=== PATIENT | male | born 1945 | race Caucasian/White ===

== ENCOUNTER → 2016-09-05 | Outpatient (CLI) | payer MEDICARE, MEDICAID ==
[~2016-09-05] MED LIST: /ADVA50050; /ADVA50050 INH; /WARF25TA PO; ADV500INH INH; ALBUPOW9 INH; ASPI325T PO; AZIT600T OR; BABY81CH; CHAN1PAK9 PO; CIPR500T3 PO; CLOP75TA2; CLOP75TA2 PO; CRES40TA PO; DARV100T OR; FLOM5CAP PO; GABA300C2 PO; GABA300C3 PO; LEVA500T PO; METO50TA2 PO; METOPROLOL PO; NAPR500T; NAPR500T6 PO; NITR0.4S; NORC5TAB PO; OXYGEN INH; PERCOCET PO; PLAV75TA2; POTA10TAB PO; PRED10TA PO; PRED20TA OR; PROV90AE AD; SERT-141 PO; SOMA350T; SPIR1CAP INH; TOPR50TA; TOPR50TA OR; TOPR50TA PO; TYLENOL PO; ZOCO20TA
[2016-09-05 13:57] LABS: ALBUMIN 3.6 GM/DL (3.2-5.2); ANION GAP 11 MEQ/L (8-16); BLOOD UREA NITROGEN 20 MG/DL (7-18); CALCIUM LEVEL 9.2 MG/DL (8.8-10.2); CARBON DIOXIDE LEVEL 27 MEQ/L (21-32); CHLORIDE LEVEL 105 MEQ/L (98-107); CREATININE FOR GFR 1.13 MG/DL (0.70-1.30); GLOMERULAR FILTRATION RATE > 60.0 (>42); GLUCOSE, FASTING 96 MG/DL (83-110); MAGNESIUM LEVEL 2.2 MG/DL (1.8-2.4); POTASSIUM SERUM 4.2 MEQ/L (3.5-5.1); SODIUM LEVEL 143 MEQ/L (136-145); URIC ACID 5.2 MG/DL (3.5-7.2)
== END ==
LOC: M LAB 12:20
PROVIDERS: ATTEND Internal Medicine Nephrology
DX: N20.0 Calculus of kidney (principal); I10 Essential (primary) hypertension; R82.99 Other abnormal findings in urine

== ENCOUNTER 2016-11-25 09:51 | Emergency (ER) | payer MEDICARE, MEDICAID ==
[~2016-11-25] VITALS: Ht 180.3 cm; Wt 92.6 kg
[~2016-11-25 09:51] MED LIST changes: +GABA-282 PO; -GABA300C3 PO; +NORC1TAB4 PO; -NORC5TAB PO; -SERT-141 PO; +SERT50TA PO
[2016-11-25] MEDS ORDERED: POTA4.25 PO (10:06)
[2016-11-25] MEDS ORDERED: o2 INH (10:06)
[2016-11-25 11:16] LABS: BASO # 0.1 K/mm3 (0.0-0.2); BASO % 0.4 % (0.0-1.0); DIFF SLIDE NUMBER 108; EOS # 0.5 K/mm3 (0.0-0.50); EOS % 3.4 % (0.0-3.0); LARGE UNSTAINED CELL # 0.2 K/mm3 (0.0-0.4); LARGE UNSTAINED CELL % 1.1 % (0.0-4.0); LYMPH # 1.7 K/mm3 (1.5-4.5); LYMPH % 11.4 % (24.0-44.0); MEAN CORPUSCULAR HEMOGLOBIN 32.7 pg (27.0-33.0); MEAN CORPUSCULAR HGB CONC 33.3 g/dl (32.0-36.5); MEAN CORPUSCULAR VOLUME 98.1 fl (80.0-96.0); MONO # 0.8 K/mm3 (0.0-0.8); MONO % 5.5 % (0.0-5.0); NEUTROPHILS # 11.8 K/mm3 (1.8-7.7); NEUTROPHILS % 78.2 % (36.0-66.0); PLATELET COUNT, AUTOMATED 224 k/mm3 (150-450); RED CELL DISTRIBUTION WIDTH 13.3 % (11.5-14.5)
[2016-11-25 11:25] LABS: ALBUMIN 3.1 GM/DL (3.2-5.2); ALBUMIN/GLOBULIN RATIO 0.76 (1.00-1.93); ALKALINE PHOSPHATASE 106 U/L (45-117); ALT/SGPT 15 U/L (12-78); ANION GAP 6 MEQ/L (8-16); AST/SGOT 17 U/L (15-37); BILIRUBIN,DIRECT 0.1 MG/DL (0.0-0.2); BILIRUBIN,TOTAL 0.6 MG/DL (0.2-1.0); BLOOD UREA NITROGEN 10 MG/DL (7-18); CARBON DIOXIDE LEVEL 28 MEQ/L (21-32); CHLORIDE LEVEL 105 MEQ/L (98-107); CREATININE FOR GFR 1.09 MG/DL (0.70-1.30); GLOMERULAR FILTRATION RATE > 60.0 (>42); GLUCOSE, FASTING 97 MG/DL (83-110); POTASSIUM SERUM 4.3 MEQ/L (3.5-5.1); SODIUM LEVEL 139 MEQ/L (136-145); TOTAL PROTEIN 7.2 GM/DL (6.4-8.2)
[2016-11-25] MEDS ORDERED: IPRATROPIUM 0.5MG/ALBUTEROL 2.5MG INH SOL UD 3ML (DUONEB)(J7620) NEB ONE (11:30)
[2016-11-25] MEDS ORDERED: NS 500 ML IV ONE (11:30)
[2016-11-25] MEDS ORDERED: ONDANSETRON 4MG/2ML VIAL (J2405) IV ONE (11:30)
[2016-11-25] MEDS ORDERED: methylPREDNISolone INJ 125 MG/2 ML VIAL (J2930) IV ONE (11:30)
--- NOTE | 2016-11-25 12:02 | REP ---
CHEST, TWO VIEWS: Two views of the chest are performed and compared to prior study of 05/09/2016. Chronic interstitial opacities are seen bilaterally. New nodular density is seen in the right suprahilar region 2.4 cm in diameter. There is mild cardiomegaly. There is calcification and tortuosity of the thoracic aorta. There are degenerative changes of the spine. IMPRESSION: Chronic interstitial densities and mild cardiomegaly. Right suprahilar nodular density 2.4 cm in diameter. This may be evaluated with CT of the chest. Signed by Bonifacio Braswell MD 11/25/2016 07:56 P
[2016-11-25] MEDS ORDERED: ALBUTEROL SULFATE 2.5 MG/0.5 ML INH NEB SOLN NEB ONE (15:00)
[2016-11-25 15:22] VITALS: BP 122/61
[2016-11-25] MEDS ORDERED: ALBU1TAB4 PO (15:42)
[2016-11-25] MEDS ORDERED: PRED20TA PO (15:42)
--- NOTE | 2016-11-26 20:54 | ECGEPIP ---
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
== END 2016-11-25 15:54 | disposition home or self-care (01) ==
LOC: EDBD 09:51 → M ED 10:36
DX: R11.2 Nausea with vomiting, unspecified (principal); R06.02 Shortness of breath; R91.8 Other nonspecific abnormal finding of lung field; J43.9 Emphysema, unspecified; I51.7 Cardiomegaly; Z87.891 Personal history of nicotine dependence
CPT/HCPCS: 71020; 80048; 80076; 81001; 83605; 83690; 85025; 93005; 94640; 96374; 96375; 99284; J2405; J2930

== ENCOUNTER → 2016-12-26 | Outpatient (CLI) | payer MEDICARE, MEDICAID ==
[~2016-12-26] MED LIST changes: +ALBU1TAB4 PO; +POTA4.25 PO; +PRED20TA PO; +o2 INH
--- NOTE | 2016-12-26 11:39 | REP ---
Renal ultrasound: The kidneys are normal size. Right kidney measures 10 .9 x 5.4 5.2 cm. Left kidney measures 12.0 x 5.3 x 5.5 cm. Renal cortical echogenicity is normal bilaterally. There is no hydronephrosis, calculus, or mass on the right on the left except for calcified atheroma in the renal arteries. There is a small 1.2 cm right renal cyst superolaterally. Bladder ultrasound: The bladder is nondistended. The pre void bladder volume is 83 ml. The postvoid bladder volume is 101 ml. With color Doppler assessment there are bilateral ureteral jets into the urinary bladder. Impression: Right renal cyst. No hydronephrosis. There are bilateral ureteral jets into the urinary bladder. Signed by Bonifacio Kramer MD 12/26/2016 11:30 A
== END ==
LOC: M RAD 09:05
PROVIDERS: ATTEND Internal Medicine Nephrology
DX: N18.9 Chronic kidney disease, unspecified (principal); N20.0 Calculus of kidney

== ENCOUNTER → 2017-01-23 | Outpatient (CLI) | payer MEDICARE, MEDICAID ==
[~2017-01-23] MED LIST changes: +ALB2.5NEB INH; +BREO1INH3 INH; +INCR1INH IN; +LEVA1TAB2 PO; -LEVA500T PO; +PROAAER10 INH; +SPIR12.9 INH
--- NOTE | 2017-01-23 22:15 | REP ---
PET/CT: History: Initial staging diagnosis right lung malignancy. Comparisons: CT study [facility] December 20, 2016 showed a 2.3 cm camelia-bronchovascular nodule in the right upper lobe. TECHNIQUE: 56 minutes following the intravenous injection of a 10.7 mCi dose of F-18 FDG, three-dimensional PET scintigraphy is acquired from the skull base to the proximal thighs. Triplanar noncontrast CT scanning is acquired through the same anatomic range for attenuation correction, and image registration with scan parameters optimized to minimize radiation exposure to the patient. PET scintigraphy and CT datasets were fused and displayed on a workstation with multiplanar and projection display capability. PET/CT Findings: The known right upper lobe lung nodule is hypermetabolic, maximum standard uptake value is 7.9. No other abnormal hypermetabolic uptake is seen within the chest. There is nonhypermetabolic uptake in the right apex posteriorly where today's CT study shows some faint new opacity. This is suspected to be inflammatory or early postobstructive. No other abnormal uptake is seen. No hilar or mediastinal hypermetabolic uptake is seen. Head and neck soft tissues are unremarkable. In the abdomen and pelvis, normal hepatic, splenic, gastrointestinal and genitourinary FDG accumulation is seen. No abnormal adrenal uptake is seen. Scan is otherwise unremarkable. Impression: The known lung mass in the right upper lobe is hypermetabolic. There is some inflammatory ill-defined uptake which is not hypermetabolic in the right apex. This may be post obstructive or inflammatory. No other abnormal uptake. Signed by Duane Lemus MD 01/24/2017 09:34 A
== END ==
LOC: M PLARAD 12:20
PROVIDERS: ATTEND Family Medicine
DX: R91.1 Solitary pulmonary nodule (principal)
CPT/HCPCS: 78815; A9552

== ENCOUNTER → 2017-02-28 | Outpatient (CLI) | payer MEDICARE, MEDICAID ==
--- NOTE | 2017-02-28 13:21 | REP ---
CT of the chest without IV contrast: Comparison 12/20/2016. There is a right upper lobe mass in the suprahilar zone today measuring 2.5 cm (previously 2.3 cm). There are no other masses or nodules. There are no acute infiltrates or effusions. There are bulla throughout the lung suresh bilaterally, most predominantly in the upper lobes. There is subpleural honeycombing along the major fissures bilaterally and in the right lower lobe. This is compatible with fibrosis and is unchanged. There is no mediastinal adenopathy. No axillary adenopathy. In the absence of IV contrast the study is insensitive for hilar adenopathy. However, there is right hilar adenopathy on the comparison CT. The ascending thoracic aorta is dilated measuring up to 4.5 centimeters in diameter, as previously. Cardiac size is normal. There is no pericardial effusion. The visualized upper abdominal contents are unremarkable. There is no adrenal mass. Impression: Right upper lobe spiculated lung mass, not significantly changed. Bullous emphysema and subpleural fibrotic changes, unchanged. The ascending thoracic aorta is dilated measuring up to 4.5 cm. There is right hilar adenopathy on the comparison CT with IV contrast. Signed by Bonifacio Kramer MD 02/28/2017 10:57 A
== END ==
LOC: M RAD 09:15
PROVIDERS: ATTEND Internal Medicine Pulmonary Disease
DX: R91.1 Solitary pulmonary nodule (principal)

== ENCOUNTER 2017-04-18 05:42 | Day surgery (SDC) | payer MEDICARE, MEDICAID ==
[~2017-04-18] VITALS: Ht 172.7 cm; Wt 95.7 kg
[~2017-04-18 05:42] MED LIST changes: -ALB2.5NEB INH; -BREO1INH3 INH; -PROAAER10 INH; -SPIR12.9 INH
[2017-04-18] MEDS ORDERED: LR 1,000 ML IV ONE (06:00)
[2017-04-18] MEDS ORDERED: GLYCOPYRROLATE INJ 0.2 MG/ML 2 ML VIAL As Ordered ONE (07:23)
[2017-04-18] MEDS ORDERED: THROMBIN SOLN 20,000 UNITS KIT As Ordered ONE (07:23)
[2017-04-18] MEDS ORDERED: LIDOCAINE 1% MDV 20ML VIAL As Ordered ONE (07:23)
[2017-04-18] MEDS ORDERED: ROCURONIUM BROMIDE 50 MG/5 ML VIAL/SYRINGE As Ordered ONE (07:24)
[2017-04-18] MEDS ORDERED: dexameTHASONE 4 MG/ML 1ML VIAL (J1100) As Ordered ONE (07:24)
[2017-04-18] MEDS ORDERED: EPINEPHrine 1MG/10ML SYRINGE 1.5IN As Ordered ONE (07:24)
[2017-04-18] MEDS ORDERED: NEOSTIGMINE 10 MG/10 ML VIAL (J2710) As Ordered ONE (07:24)
[2017-04-18] MEDS ORDERED: PROPOFOL 200 MG/20 ML VIAL As Ordered ONE (07:24)
[2017-04-18] MEDS ORDERED: LIDOCAINE 2% INJ 100 MG/5 ML SDV (FOR ANES.) As Ordered ONE (07:24)
[2017-04-18] MEDS ORDERED: MIDAZOLAM INJ 2 MG/2 ML VIAL (J2250) As Ordered ONE (07:24)
[2017-04-18] MEDS ORDERED: fentaNYL 100 MCG/2 ML INJECTION (J3010) As Ordered ONE (07:24)
[2017-04-18] MEDS ORDERED: ONDANSETRON 4MG/2ML VIAL (J2405) As Ordered ONE (07:24)
--- NOTE | 2017-04-18 09:12 | RO ---
DATE OF PROCEDURE: 04/18/2017 PREOPERATIVE DIAGNOSIS: Abnormal chest CT, right upper lobe mass. POSTOPERATIVE DIAGNOSIS: Abnormal chest CT, right upper lobe mass. FINDINGS: Smokers airways. PROCEDURE: Bronchoscopy with electromagnetic navigation and radial ultrasound. SURGEON: Dr. Jose Robb VEST FINISHER: None. ANESTHESIA: General. Please refer to their records for details. ESTIMATED BLOOD LOSS: 10 mL. SPECIMENS OBTAINED: 1. Right upper lobe transbronchial biopsies. 2. Right upper lobe FNA GenCut 3. Right upper lobe needle brush 4. Right upper lobe bronchoalveolar lavage sent for aerobic/anaerobic gram stain and culture, AFB, fungal stain and culture, cell count, and cytology. Two fiducial markers were placed in the right upper lobe. DESCRIPTION OF PROCEDURE: After informed consent was reviewed with the patient in the preoperative area, he was brought back to [facility], which is a pre mapped room. A time-out was performed identifying correct site and correct procedure with two patient identifiers. General anesthesia was initiated with an 8.5 endotracheal tube. The case was then handed over to me after adequate anesthesia. I used Cetacaine spray to anesthetize the airway along with lubrication for the bronchoscope. The 1T190 bronchoscope was then inserted through the endotracheal tube. The trachea was midline. The ahmet was fairly sharp. There were copious amounts of white mucus throughout both lung suresh. The right mainstem bronchus and left mainstem bronchus were normal except for some hyperdynamic collapse. RB 1 through 10 was inspected. There were no endobronchial lesions; however, there was significant banding throughout all airways. LB 1 through 10 was also inspected without endobronchial lesions. Minimal amounts of mucus suctioned. After all airways were suctioned and viewed , the bronchoscope was moved back into the endotracheal tube. The navigational guide was then placed. Automatic registration was then performed. Automatic registration was then confirmed. Target #1 in the right upper lobe was then selected. This was easily navigated to in the right upper lobe apical segment, the most posterior segment of the apical portion, iLogic guidance suggested 5 mm proximity. Fluoroscopy was used to confirm placement. The guide was then removed with the sheath remaining. Transbronchial forceps biopsies were then obtained. This was followed by GenCut fine needle aspiration. This was again followed by a triple needle brush. Again, additional transbronchial biopsies were taken. Local was also confirmed with radial ultrasound probe. There seemed to be circumferential abnormalities. After all sampling was obtained, two fiducial markers were placed under fluoroscopy. After adequate placement of fiducial markers, bronchoalveolar lavage was performed. The sheath was then removed. After the sheath was removed, hemostasis was assured. The bronchoscope was then removed and the case was handed back over to general anesthesia. A postprocedure chest x-ray is pending. At this point in time, there were no observed complications. Post Procedure X-ray showed minimal migration of the fiducial markers which is not surprising given the proximity to the airway. ARACELISD
--- NOTE | 2017-04-18 09:38 | REP ---
Portable chest, single AP view, the patient sitting, nine 31 a.m.: The studies performed with lordotic angulation. There are surgical clips superimposed over the right hilus as an interval change. There is no pneumothorax or hemothorax. There is discoid atelectasis in the right costophrenic angle. Left lung is clear. Cardiac size is enlarged, unchanged. Impression: No pneumothorax or hemothorax. Surgical clips in the right hilus. Discoid atelectasis inferiorly in the right lung. Signed by Bonifacio Kramer MD 04/18/2017 09:29 A
[2017-04-18] MEDS ORDERED: LR 1,000 ML IV SCH (09:45)
[2017-04-18] MEDS ORDERED: ONDANSETRON 4MG/2ML VIAL (J2405) IV PRN (09:45)
[2017-04-18] MEDS ORDERED: fentaNYL 100 MCG/2 ML INJECTION (J3010) IV PRN (09:45)
[2017-04-18 10:50] VITALS: BP 121/66
[2017-04-18 11:42] LABS: BAL DIFF IF INDICATED? NO (NO); BAL WBC 4.444 CELLS/uL (0-10); COLOR RED (COLORLESS); DILUTION FACTOR 1; WBC BAL COUNTED 4
--- NOTE | 2017-04-19 16:30 | REP ---
Chest x-ray: Single view intraprocedural. History: Abnormal x-ray. Bronchoscopy. 3 minutes 45 seconds of fluoroscopy time is reported. Findings: A single fluoroscopically obtained last image hold spot radiograph of the right chest documents bronchoscopic position and fiducial marker placement at this site of a spiculated nodule. Signed by Duane Lemus MD 04/19/2017 04:50 P
== END 2017-04-18 11:00 | disposition home or self-care (01) ==
LOC: M SDC 05:42
PROVIDERS: ATTEND Internal Medicine Pulmonary Disease
DX: R94.31 Abnormal electrocardiogram [ECG] [EKG] (principal); R91.1 Solitary pulmonary nodule; J44.9 Chronic obstructive pulmonary disease, unspecified; I10 Essential (primary) hypertension; E78.5 Hyperlipidemia, unspecified; I25.10 Atherosclerotic heart disease of native coronary artery without angina pectoris; I73.9 Peripheral vascular disease, unspecified; F32.9 Major depressive disorder, single episode, unspecified; G89.29 Other chronic pain; R26.81 Unsteadiness on feet; R06.00 Dyspnea, unspecified; R29.898 Other symptoms and signs involving the musculoskeletal system; N28.9 Disorder of kidney and ureter, unspecified; Z79.899 Other long term (current) drug therapy; Z72.0 Tobacco use; Z87.442 Personal history of urinary calculi
CPT/HCPCS: 31623; 31624; 31626; 31627; 31628; 31629; 71010; 76000; 87070; 87077; 87102; 87116; 87186; 87205; 87206; 88104; 88108; 88173; 88305; 88313; 89050; A4648; J1100; J2250; J2405; J2710; J3010

== ENCOUNTER → 2017-04-25 | Outpatient (REF) | payer MEDICARE, MEDICAID ==
[~2017-04-25] MED LIST changes: +ALB2.5NEB INH; +BREO1INH3 INH; +PROAAER10 INH; +SPIR12.9 INH
[2017-04-25 18:01] LABS: INR 1.03
== END ==
LOC: M LAB REF 17:07
PROVIDERS: ATTEND Internal Medicine Pulmonary Disease
DX: R91.1 Solitary pulmonary nodule (principal)

== ENCOUNTER 2017-05-02 09:11 | Inpatient (IN) | payer MEDICARE, MEDICAID ==
[~2017-05-02 09:11] MED LIST changes: -ALB2.5NEB INH; -BREO1INH3 INH; -PROAAER10 INH; -SPIR12.9 INH
[2017-05-02] MEDS ORDERED: ISOVUE-370 76% 100ML VIAL (Q9967) As Ordered ONE (09:39)
[2017-05-02] MEDS ORDERED: LIDOCAINE 1% MDV 20ML VIAL As Ordered ONE ×2 (09:39→10:46)
[2017-05-02] MEDS ORDERED: LIDOCAINE 2% MDV 20 ML VIAL As Ordered ONE (09:42)
[2017-05-02] MEDS ORDERED: MIDAZOLAM INJ 2 MG/2 ML VIAL (J2250) As Ordered ONE (10:46)
[2017-05-02] MEDS ORDERED: KCL 20MEQ IN D5/NS 1000ML 1,000 ML IV SCH (11:06)
[2017-05-02] MEDS ORDERED: ONDANSETRON 4MG/2ML VIAL (J2405) IV PRN (11:15)
[2017-05-02] MEDS ORDERED: ACETAMINOPHEN TAB 650MG DOSE (2X325MG) PO PRN ×3 (11:15→13:30)
[2017-05-02] MEDS ORDERED: LEVALBUTEROL 1.25 MG/0.5 ML CONCENTRATE NEB NEB PRN (11:15)
[2017-05-02] MEDS ORDERED: BISACODYL 10 MG SUPP PR PRN (11:15)
[2017-05-02] MEDS ORDERED: PERCOCET 5MG/325MG TAB PO PRN (11:15)
--- NOTE | 2017-05-02 11:26 | REP ---
PORTABLE CHEST: AP portable view of the chest is performed status post right lung biopsy. There is a moderate to large right pneumothorax present. The air gap in the apex is approximately 3.7 cm and inferiorly is maximally 3.9 cm. There are associated atelectatic changes in the right lung base. Left lung is unchanged in appearance compared to prior study of 04/18/2017. Signed by Bonifacio Braswell MD 05/02/2017 05:34 P
--- NOTE | 2017-05-02 11:43 | REP ---
PORTABLE CHEST: AP portable view of the chest is performed status post right chest tube insertion. The right chest tube overlies the superior aspect of the right hemithorax. The previously noted pneumothorax has essentially resolved. Bibasilar fibroatelectatic changes are noted. There is a right hilar mass. IMPRESSION: Resolution of right pneumothorax, status post right chest tube insertion. Signed by Bonifacio Braswell MD 05/02/2017 05:34 P
[2017-05-02 12:00] VITALS: BP 162/86
[2017-05-02 12:15] LABS: BASO # 0.1 10^3/uL (0.0-0.2); BASO % 0.5 % (0.0-1.0); EOS # 0.3 10^3/uL (0.0-0.50); EOS % 2.5 % (0.0-3.0); IMMATURE GRANULOCYTE % 0.9 % (0-0); LYMPH # 1.9 10^3/uL (1.5-4.5); LYMPH % 14.5 % (24.0-44.0); MEAN CORPUSCULAR HEMOGLOBIN 32.3 pg (27.0-33.0); MEAN CORPUSCULAR HGB CONC 33.3 g/dl (32.0-36.5); MEAN CORPUSCULAR VOLUME 96.9 fl (80.0-96.0); MONO % 7.4 % (0.0-5.0); NEUTROPHILS # 9.8 10^3/uL (1.8-7.7); NEUTROPHILS % 74.2 % (36.0-66.0); PLATELET COUNT, AUTOMATED 184 10^3/uL (150-450); RED CELL DISTRIBUTION WIDTH 13.5 % (11.5-14.5); WHITE BLOOD COUNT 13.2 10^3/uL (4.0-10.0)
[2017-05-02] MEDS: PERCOCET 5MG/325MG TAB PO PRN ×2 (12:16→16:46)
[2017-05-02 12:29] LABS: CALCIUM LEVEL 9.3 MG/DL (8.8-10.2); CREATININE FOR GFR 1.26 MG/DL (0.70-1.30); GLOMERULAR FILTRATION RATE 59.7 (>42); POTASSIUM SERUM 4.4 MEQ/L (3.5-5.1)
[2017-05-02] MEDS ORDERED: KETOROLAC 30 MG/ML VIAL (J1885) IV SCH (13:00)
[2017-05-02] MEDS: PANTOPRAZOLE 40MG TAB (PROTONIX) PO SCH (13:35)
[2017-05-02] MEDS: LEVALBUTEROL 1.25 MG/0.5 ML CONCENTRATE NEB NEB SCH ×2 (14:01→19:22)
[2017-05-02 14:05] VITALS: BP 145/78
[2017-05-02 15:30] VITALS: BP 107/57
[2017-05-02 15:33] VITALS: BP 107/57
--- NOTE | 2017-05-02 15:39 | HPE ---
DATE OF ADMISSION: 05/02/2017 The patient is seen at the urgent request of radiology for a large pneumothorax, status post lung biopsy of the right upper lobe. HISTORY OF PRESENT ILLNESS: The patient is a 71-year-old white male who underwent a lung biopsy today. Soon after the biopsy, he had a pneumothorax, which increased over a very short period of time. The patient became short of breath although he maintained his blood pressure. I saw him emergently in the outpatient area of interventional radiology and immediately placed a #20 chest tube in the anterior right chest. This relieved his symptomatology. He has known severe chronic obstructive pulmonary disease (COPD) and was found to have a lesion in the right upper lobe for which he initially underwent bronchoscopic bronchoscopy with navigation. That proved to be nondiagnostic. He therefore underwent a needle biopsy with the above results. The remainder of the history is gleaned from the past medical record. He has had a cough which he produces white sputum. He knows that has wheezes which he can appreciate. His shortness of breath is such that he can only walk about one block at the most. There is no paroxysmal nocturnal dyspnea or orthopnea and no fever, chills or sweats. PAST MEDICAL HISTORY: COPD with emphysema and chronic bronchitis. Hypertension. Renal lithiasis. Hyperlipidemia. Coronary artery disease. Peripheral vascular disease. Depression. Hydronephrosis. PAST SURGICAL HISTORY: Status post hip fracture in February of 2013. CURRENT MEDICATIONS: - albuterol 1 puff four times a day as needed shortness of breath - Incruse Ellipta 1 puff every day - Breo 1 puff every day - ProAir HFA 2 puffs every 4 hours as needed shortness of breath - home oxygen 2 to 3 liters at bedtime - Crestor 40 mg every day - metoprolol ER 50 mg every day - gabapentin 300 mg four times a day - Plavix 75 mg every day - sertraline 50 mg every day - potassium chloride 10 mEq every day PAST TRAVEL HISTORY: Not applicable to the emergent problem. 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 HABITS: Has a 100 pack year history of smoking. EXPOSURES: He has a cat at home. REVIEW OF SYSTEMS: Constitutional: Without fever, chills, or sweats. Weight has been stable. Nose: Without epistaxis. Mouth: Wears dentures. Respiratory: See HPI. Cardiac: Without chest pain or chest pressure. Without orthopnea or paroxysmal nocturnal dyspnea. Gastrointestinal (GI): Without nausea, vomiting, diarrhea, constipation, melena or hematochezia. Genitourinary (): Has renal stones. Endocrine: Without diabetes. Without thyroid disease. Neurologic: Without prior seizures or paralysis. Does have difficulty with balance. PHYSICAL EXAMINATION: General: Well-developed, well-nourished white male in moderate distress from shortness of breath. Vital signs: Temperature is 96.7, pulse is 56 with a sinus rhythm. Respiratory rate of 25 to 26 without the use of accessory muscles who is 95% saturated on 4 liters nasal cannula and whose blood pressure is 162/86. Head: Normocephalic. Eyes: Pupils equal, round and reactive to light. Extraocular muscles intact. Sclera anicteric. Nose: Without deformity. Mouth: Shows his mucous membranes to be pink and moist. Lips and commissures are without lesions. There is no thrush. He is edentulous. Neck is supple. There is no jugular venous distention, no subcutaneous emphysema. Trachea is midline. There is no thyromegaly or lymphadenopathy. Lungs: Show markedly decreased breath sounds on the right side with wheezing on the left side during expiration. Percussion note is full to the diaphragm. There is no subcutaneous emphysema. Cardiac examination is without murmurs, clicks, gallops or rubs. I cannot feel his point of maximal impulse (PMI), S1 and S2 are normal. Abdomen: Soft and nontender. Bowel sounds are positive. There is no hepatomegaly. There is no costovertebral angle (CVA) tenderness. Extremities: Show no pretibial edema, no calf tenderness. No differential swelling of the upper extremities. He does have a nonhealing wound on the tibia on left hand side. It looks as though it is scabbed over however. Neuro: Shows II-XII intact. Gross motor and gross sensation intact. Gait is not tested. Skin: Warm, dry and perfused without cyanosis or mottling including that of the nail beds and the knees. Psychiatric: Shows him to be awake, alert and oriented times three, with appropriate mood, affect, and conversational and understanding the emergent condition at hand. His white count is 13.2, with a hemoglobin and hematocrit of 14.4 and 43.2 with a platelet count of 184. Differential shows 74% neutrophils, 14% lymphocytes, 7% monocytes. There are no immature forms, no toxic granulations. Electrolytes are normal with a BUN and creatinine of 18 and 1.26 with a glucose of 105 and a calcium of 5.3. Chest x-ray shows a 50% pneumothorax on the right side. There is a slight midline shift towards the left. There is no subcutaneous emphysema. CT scan of 02/28/2017 shows a 2.5 cm spiculated lesion in the right upper lobe. He has severe emphysematous changes. There has been no pleural effusions. There is some fibrotic changes at the bases. I do not see appreciable mediastinal lymphadenopathy. Adrenals are intact with normal configuration and there are no liver lesions. IMPRESSION: 1. Acute pneumothorax after a lung biopsy with mediastinal shift. 2. Severe COPD. 3. Right upper lobe lung lesion, spiculated, rule out malignancy. 4. Hypertension. 5. Prior history of nephrolithiasis. 6. Hyperlipidemia. 7. Coronary artery disease. 8. Peripheral vascular disease. 9. Depression. 10. Tobacco abuse. PLAN AND DISCUSSION: As noted in the HPI a chest tube was immediately placed in the right upper hemithorax. Will admit him and watch for a continued air leak. Will maintain him on all his home medications in addition to lung expansion therapy. I will cover him for deep venous thrombosis (DVT) prophylaxis.
--- NOTE | 2017-05-02 17:22 | REP ---
CT GUIDED RIGHT UPPER LOBE LUNG BIOPSY: The procedure was performed under the direct supervision of Dr. Braswell. The patient has a history of a right upper lobe mass measuring 2.5 cm seen on a previous CT scan dated 02/28/2017. The risks and benefits of the procedure were explained to the patient and informed consent was obtained. The right upper lobe lung nodule was localized using CT guidance. The skin was prepped and draped in a sterile fashion. 1% lidocaine was used as a local anesthetic. Using CT guidance a 19/20-gauge coaxial needle biopsy system was inserted and advanced into the mass. Five core biopsy samples were obtained and sent to the lab. The needle was then removed. Followup images immediately after needle removal show a small right pneumothorax. At this time the patient's O2 saturations were 96% on room air. He stated he had no pain. He was placed on 2 liters of O2 via nasal cannula which brought his O2 saturations up to 98%. Followup CT images performed 5 minutes later show a significant increase in the size of the right pneumothorax. When the patient was moved over onto the stretcher his O2 saturations did drop into the high 80s. A portable chest x-ray was performed and the image demonstrate a moderate to large right pneumothorax. Dr. Osborne was consulted. Dr. Osborne came to the department and inserted a chest tube into the patient. The patient was then admitted under Dr. Osborne's care. Reviewed by MIRI Ricks 05/03/2017 10:42 AEdited and Signed by Bonifacio Braswell MD 05/06/2017 09:58 A
[2017-05-02 18:00] VITALS: BP 110/62
--- NOTE | 2017-05-02 18:16 | RO ---
DATE OF PROCEDURE: 05/02/2017 PREPROCEDURE DIAGNOSIS: Right pneumothorax. POSTPROCEDURE DIAGNOSIS: Right pneumothorax. PROCEDURE: Insertion of right anterior chest tube under moderate sedation. SURGEON: Dr. Antonio Osborne COMMERCIAL FRONT LOAD OPERATOR: ANESTHESIA: DESCRIPTION OF PROCEDURE: Under moderate sedation consisting of 2 mg of Versed, the patient was prepped and draped in the usual sterile fashion. The skin and subcutaneous tissue, muscle and pleura in the first intercostal space just above the second rib were infiltrated with 1% Xylocaine. Incision was made and a tunnel was created in the chest. A #20 chest tube was placed without difficulty. It was secured to the chest wall with a #2 Tevdek suture and connected to the Pleur-evac. There was a large gush of air which then stopped. The patient tolerated the procedure well. A chest x-ray is pending.
[2017-05-02] MEDS: NORCO, ANEXSIA 5/325MG TABLET (HYDROcodone/ACETAMINOPHEN) PO PRN (19:00)
[2017-05-02 19:46] VITALS: BP 110/57
[2017-05-02] MEDS: HEPARIN SOD (PORCINE) 5000 UNITS/ML VIAL SC SCH (20:53)
[2017-05-02] MEDS: DOCUSATE SODIUM 100 MG CAP PO SCH (22:01)
[2017-05-03] VITALS (8 sets, daily range): BP systolic 103–147; BP diastolic 57–71; O2SAT 91
[2017-05-03] MEDS: LEVALBUTEROL 1.25 MG/0.5 ML CONCENTRATE NEB NEB SCH ×4 (01:16→19:57)
[2017-05-03] MEDS: NORCO, ANEXSIA 5/325MG TABLET (HYDROcodone/ACETAMINOPHEN) PO PRN ×3 (01:30→20:56)
[2017-05-03 05:50] LABS: BASO # 0.1 10^3/uL (0.0-0.2); BASO % 0.6 % (0.0-1.0); EOS # 0.2 10^3/uL (0.0-0.50); EOS % 2.4 % (0.0-3.0); IMMATURE GRANULOCYTE % 0.7 % (0-0); LYMPH # 1.9 10^3/uL (1.5-4.5); LYMPH % 19.2 % (24.0-44.0); MEAN CORPUSCULAR HEMOGLOBIN 31.2 pg (27.0-33.0); MEAN CORPUSCULAR HGB CONC 31.8 g/dl (32.0-36.5); MONO # 0.8 10^3/uL (0.0-0.8); MONO % 7.5 % (0.0-5.0); NEUTROPHILS % 69.6 % (36.0-66.0); PLATELET COUNT, AUTOMATED 171 10^3/uL (150-450); RED CELL DISTRIBUTION WIDTH 13.5 % (11.5-14.5); WHITE BLOOD COUNT 10.1 10^3/uL (4.0-10.0)
[2017-05-03 06:00] LABS: CALCIUM LEVEL 8.8 MG/DL (8.8-10.2); CREATININE FOR GFR 1.28 MG/DL (0.70-1.30); GLOMERULAR FILTRATION RATE 58.6 (>42); POTASSIUM SERUM 4.1 MEQ/L (3.5-5.1)
[2017-05-03] MEDS ORDERED: ALB2.5NEB INH (08:24)
[2017-05-03] MEDS ORDERED: PROAAER10 INH (08:24)
[2017-05-03] MEDS ORDERED: BREO1INH3 INH (08:24)
[2017-05-03] MEDS ORDERED: SPIR12.9 INH (08:24)
[2017-05-03] MEDS: PANTOPRAZOLE 40MG TAB (PROTONIX) PO SCH (08:40)
[2017-05-03] MEDS: DOCUSATE SODIUM 100 MG CAP PO SCH ×2 (08:40→20:54)
[2017-05-03] MEDS: HEPARIN SOD (PORCINE) 5000 UNITS/ML VIAL SC SCH ×2 (08:40→20:54)
[2017-05-03] MEDS: MOM 30ML SUSPENSION UDC PO SCH (08:41)
--- NOTE | 2017-05-03 09:39 | REP ---
TWO-VIEW CHEST: Two views of the chest are performed and compared to prior studies, most recent of which is 05/02/2017. There is a right chest tube again noted. I do not see a significant pneumothorax. Fibroatelectatic change is seen in each lung base. The cardiomediastinal silhouette is unchanged. Metallic clips are again seen in a right parahilar mass. Signed by Bonifacio Braswell MD 05/06/2017 09:45 A
[2017-05-03] MEDS ORDERED: SLF 3 ML SYR IV PRN (12:45)
--- NOTE | 2017-05-03 13:52 | IPN ---
DATE: 05/03/2017 Mr. Lee has no air leak on 20 cm of suction of water and with forceful cough. I will therefore discontinue his suction. His pain is being well controlled at chest tube insertion site. His vital signs show a maximum temperature (Tmax) of 97.9 with a heart rate that ranges between 52 and 58 in a sinus rhythm. Respiratory rate of 20 to 18 without the use of accessory muscles. He is 92% saturated on room air. His blood pressures are ranging between 108/64 to 135/66. Intake and output for the past 24 hours has been recorded as 930 in, 175 out for a positivity of 755 mL. He has put out nothing out the chest tube. His weight today is 97.3 kg, compared to 95.6 kg yesterday. On physical examination, he has normal vesicular sounds on either side, but they are both markedly decreased. Percussion notes are full to the diaphragm. Cardiac exam is without murmurs, clicks, gallops, or rubs. I cannot feel his point of maximal impulse (PMI). S1 and S2 are normal. Abdomen: Soft and nontender. Bowel sounds are positive. There is no hepatomegaly. No costovertebral angle (CVA) tenderness. Extremities: Show no pretibial edema. No calf tenderness. No differential swelling of the upper extremities. Skin: Is warm, dry, and perfused without cyanosis or mottling including that of the nailbeds and the knees. Neck: Is supple. There is no jugular venous distention. No subcutaneous emphysema. Trachea is midline. Mouth shows the mucous membranes to be pink and moist. Lips and commissures are without lesions. There is no thrush. Eyes show his pupils are equal and reactive. Extraocular motor intact. Sclerae anicteric. NEUROLOGICAL: Shows II-XII intact along with gross motor and gross sensation intact. Gait is not tested. PSYCHIATRIC: Shows him to be awake, alert, and oriented times three with appropriate mood and affect. His white count today is 10.1, with a hemoglobin and hematocrit of 12.8 and 42.2,slightly down from yesterday's of 14.4 and 43.2, probably secondary to hemodilution. Platelet count is 171, and differential shows 69% neutrophils, 19% lymphocytes, 7% monocytes. There are no immature forms, no toxic granulations. Electrolytes are normal with a BUN/creatinine of 19 and 1.28, with a glucose of 105 and a calcium 8.8. His chest x-ray shows his lung fully expanded to the chest wall. Chest tube is in good place. There is no subcutaneous emphysema. I see no infiltrates. IMPRESSION: 1. Pneumothorax, status post lung biopsy right side, improved. 2. Severe chronic obstructive pulmonary disease (COPD). 3. Right upper lobe lung lesion, spiculated, ruling out malignancy. 4. Hypertension. 5. Prior history of nephrolithiasis. 6. Hyperlipidemia. 7. Coronary artery disease. 8. Peripheral vascular disease. 9. Depression. 10. Tobacco abuse. PLAN AND DISCUSSION: I will discontinue his chest tube suction today. We await pathology results on the needle biopsy. My tentative plan is to remove the chest tube tomorrow, take a chest x-ray 6 hours later, and potentially discharge him to home tomorrow afternoon.
[2017-05-03] MEDS: SLF 3 ML SYR IV SCH ×2 (15:45→20:55)
[2017-05-04] MEDS: NORCO, ANEXSIA 5/325MG TABLET (HYDROcodone/ACETAMINOPHEN) PO PRN (01:22)
[2017-05-04] MEDS: LEVALBUTEROL 1.25 MG/0.5 ML CONCENTRATE NEB NEB SCH ×2 (01:57→07:30)
[2017-05-04] MEDS: SLF 3 ML SYR IV SCH (03:58)
[2017-05-04 04:00] VITALS: BP 145/70
[2017-05-04 05:46] LABS: BASO # 0.1 10^3/uL (0.0-0.2); BASO % 0.6 % (0.0-1.0); EOS # 0.2 10^3/uL (0.0-0.50); EOS % 2.4 % (0.0-3.0); IMMATURE GRANULOCYTE % 0.8 % (0-0); LYMPH # 1.6 10^3/uL (1.5-4.5); LYMPH % 17.7 % (24.0-44.0); MEAN CORPUSCULAR HEMOGLOBIN 31.8 pg (27.0-33.0); MEAN CORPUSCULAR HGB CONC 33.2 g/dl (32.0-36.5); MEAN CORPUSCULAR VOLUME 95.9 fl (80.0-96.0); MONO # 0.6 10^3/uL (0.0-0.8); MONO % 7.1 % (0.0-5.0); NEUTROPHILS # 6.5 10^3/uL (1.8-7.7); NEUTROPHILS % 71.4 % (36.0-66.0); PLATELET COUNT, AUTOMATED 165 10^3/uL (150-450); RED CELL DISTRIBUTION WIDTH 13.3 % (11.5-14.5); WHITE BLOOD COUNT 9.1 10^3/uL (4.0-10.0)
[2017-05-04 06:06] LABS: ANION GAP 7 MEQ/L (8-16); BLOOD UREA NITROGEN 16 MG/DL (7-18); CALCIUM LEVEL 8.6 MG/DL (8.8-10.2); CARBON DIOXIDE LEVEL 27 MEQ/L (21-32); CHLORIDE LEVEL 102 MEQ/L (98-107); CREATININE FOR GFR 1.08 MG/DL (0.70-1.30); GLOMERULAR FILTRATION RATE > 60.0 (>42); GLUCOSE, FASTING 95 MG/DL (83-110); POTASSIUM SERUM 3.8 MEQ/L (3.5-5.1); SODIUM LEVEL 136 MEQ/L (136-145)
--- NOTE | 2017-05-04 08:11 | REP ---
PA and lateral chest: Comparisons 05/03/2017. The right thoracotomy tube is unchanged. There is no pneumothorax. The lung suresh are hyperinflated, as previously. The interstitium is chronically coarsened unchanged from 05/08/2016, compatible with fibrosis. Cardiac size is enlarged, unchanged. The amena, mediastinum, and bony thorax are unremarkable. Impression: Chronic hyperinflation and chronic interstitial coarsening and chronic cardiomegaly. The right thoracotomy tube is unchanged from 05/03/2017. No pneumothorax. Signed by Bonifacio Kramer MD 05/04/2017 08:02 A
[2017-05-04] MEDS: DOCUSATE SODIUM 100 MG CAP PO SCH (09:00)
[2017-05-04] MEDS: MOM 30ML SUSPENSION UDC PO SCH (09:00)
[2017-05-04 09:02] VITALS: BP 120/69
[2017-05-04] MEDS: PANTOPRAZOLE 40MG TAB (PROTONIX) PO SCH (09:37)
[2017-05-04] MEDS: HEPARIN SOD (PORCINE) 5000 UNITS/ML VIAL SC SCH (09:38)
--- NOTE | 2017-05-04 20:09 | DSES ---
DATE OF ADMISSION: 05/02/2017 DATE OF DISCHARGE: 05/04/2017 DISCHARGE DIAGNOSES: 1. Right pneumothorax, status post transthoracic needle biopsy. 2. 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 3. Severe chronic obstructive pulmonary disease (COPD). 4. Hypertension. 5. Prior history of nephrolithiasis. 6. Hyperlipidemia. 7. Coronary artery disease. 8. Peripheral vascular disease. 9. Depression. 10. Tobacco abuse. HOSPITAL COURSE: The patient is a 71-year-old white male who underwent a needle biopsy of right upper lobe lesion after discovering it on chest scanning. He has a long history of smoking. After the needle biopsy, the lung rapidly deflated and a chest tube was placed urgently to reinflate the lung. He did not have a continuing air leak and the chest tube was removed on the second hospital day after being taken off suction on the first hospital day. Final pathology was reported back as squamous cell carcinoma. A prior PET scan only showed uptake in the right upper lobe tumor mass and there was no uptake in the mediastinal nodes. His spirometry shows an FEV1 of 1.07. No diffusion capacity has been measured yet. His lung show severe emphysematous changes throughout. His chest tube was removed on the second hospital day. He is going to be discharged on his home medications of: - albuterol nebulizer 2.5 mg four times a day as needed for shortness of breath - ProAir two puffs every 4 hours as needed for shortness of breath - Plavix 75 mg daily - Breo Ellipta 200/25 one puff daily - gabapentin 300 mg daily - metoprolol XL 50 mg daily - potassium citrate ER 15 mg twice a day - Crestor 40 mg daily - sertraline 50 mg daily - Spiriva two inhalations daily He has clinical stage IA disease but with severe pulmonary compromise. He is not a surgical candidate, although diffusion capacity testing would be helpful. His best course of therapy would be SBRT radiation therapy. He will return to see me in 1 week in post hospitalization followup and we will arrange for him to see Dr. Woo, his primary community health advocate after that.
== END 2017-05-04 11:55 | disposition home or self-care (01) | DRG 200 ==
LOC: M RADPRO 09:11 → M PCU 11:14
PROVIDERS: ADMIT Thoracic Surgery (Cardiothoracic Vascular Surgery); ATTEND Thoracic Surgery (Cardiothoracic Vascular Surgery)
PROC: 0W9930Z Drainage of Right Pleural Cavity with Drainage Device, Percutaneous Approach (ICD-10-PCS; principal; 2017-05-02)
PROC: 0BBC3ZX Excision of Right Upper Lung Lobe, Percutaneous Approach, Diagnostic (ICD-10-PCS; 2017-05-02)
DX: J95.811 Postprocedural pneumothorax (principal); C34.11 Malignant neoplasm of upper lobe, right bronchus or lung; J44.9 Chronic obstructive pulmonary disease, unspecified; I10 Essential (primary) hypertension; E78.5 Hyperlipidemia, unspecified; I25.10 Atherosclerotic heart disease of native coronary artery without angina pectoris; I73.9 Peripheral vascular disease, unspecified; F32.9 Major depressive disorder, single episode, unspecified; Z87.442 Personal history of urinary calculi; Z99.81 Dependence on supplemental oxygen; Z79.02 Long term (current) use of antithrombotics/antiplatelets; Z79.899 Other long term (current) drug therapy; Z87.891 Personal history of nicotine dependence

== ENCOUNTER → 2017-05-28 | Outpatient (CLI) | payer MEDICARE, MEDICAID ==
[~2017-05-28] MED LIST changes: +ALB2.5NEB INH; +BREO1INH3 INH; +PROAAER10 INH; +SPIR12.9 INH
--- NOTE | 2017-05-29 13:41 | REP ---
PET/CT: HISTORY: Restaging lung cancer. CT guided needle biopsy right upper lobe lung nodule May 02, 2017 showed moderately differentiated nonkeratinizing squamous cell carcinoma. COMPARISONS: Comparison PET-CT January 23, 2017. Comparison chest CT study February 28, 2017. TECHNIQUE: 58 minutes following the intravenous injection of a 10.0 mCi dose of F-18 FDG, three-dimensional PET scintigraphy is acquired from the skull base to the proximal thighs. Triplanar noncontrast CT scanning is acquired through the same anatomic range for attenuation correction, and image registration with scan parameters optimized to minimize radiation exposure to the patient. PET scintigraphy and CT datasets were fused and displayed on a workstation with multiplanar and projection display capability. PET/CT FINDINGS: The previously noted spiculated nodule in the right upper lobe persists. Maximum diameter is 2.6 cm on today's images. It has become cavitary in the interval since the prior study. It remains hypermetabolic. Maximum standard uptake value is 7.4. Previously it was 7.9. There is no other abnormal hypermetabolic uptake in the chest. Head and neck soft tissues are unremarkable. No abnormal hypermetabolic uptake is seen in the abdomen or pelvis. The exam is otherwise unremarkable. IMPRESSION: The known right upper lobe lung nodule remains hypermetabolic 2.6 cm in greatest diameter with interval development of cavitation. Maximum standard uptake value is similar, 7.4. No other abnormal uptake. Signed by Duane Lemus MD 05/29/2017 01:48 P
== END ==
LOC: M PLARAD 13:11
PROVIDERS: ATTEND Radiology Radiation Oncology
DX: C34.90 Malignant neoplasm of unspecified part of unspecified bronchus or lung (principal)
CPT/HCPCS: 78815; A9552

== ENCOUNTER → 2017-05-30 | Outpatient (CLI) | payer MEDICARE, MEDICAID ==
[~2017-05-30] MED LIST changes: +PROHANCE 279.3MG/ML 15ML VIAL (A9576) As Ordered ONE; +PROHANCE 279.3MG/ML 5ML VIAL (A9576) As Ordered ONE
--- NOTE | 2017-05-30 13:59 | REP ---
MR BRAIN WITHOUT AND WITH CONTRAST: HISTORY: Lung carcinoma. CONTRAST: ProHance 19 mL. A small area of increased signal intensity on T2-weighted images is present in the right cerebellum. This represents an old lacunar infarction. Areas of increased signal intensity on T2-weighted images are present in the periventricular and subcortical white matter. This represents small vessel ischemic disease. There is no intraparenchymal hemorrhage, acute infarct, mass, or midline shift. There is no abnormal enhancement. The ventricular system and cortical sulci as well as subarachnoid space in the posterior fossa are dilated, consistent with mild volume loss. There is no extracerebral collection. Mucosal thickening is present in the maxillary, left ethmoid, and frontal sinuses. IMPRESSION: 1. Old right cerebellar lacunar infarction. 2. Small vessel ischemic disease. 3. Mild volume loss. Signed by Cl Bullard MD 05/30/2017 02:31 P
== END ==
LOC: M RAD 08:07
PROVIDERS: ATTEND Radiology Radiation Oncology
DX: Z08 Encounter for follow-up examination after completed treatment for malignant neoplasm (principal); I67.82 Cerebral ischemia; Z85.118 Personal history of other malignant neoplasm of bronchus and lung
CPT/HCPCS: 70553; A9576

== ENCOUNTER → 2017-06-04 | Outpatient (CLI) | payer MEDICARE, MEDICAID ==
[~2017-06-04] MED LIST changes: -PROHANCE 279.3MG/ML 15ML VIAL (A9576) As Ordered ONE; -PROHANCE 279.3MG/ML 5ML VIAL (A9576) As Ordered ONE
== END ==
LOC: M ONCR 01:45
PROVIDERS: ATTEND Radiology Radiation Oncology
DX: C34.90 Malignant neoplasm of unspecified part of unspecified bronchus or lung (principal)

== ENCOUNTER 2017-10-01 13:54 | Emergency (ER) | payer MEDICARE, MEDICAID ==
[2017-10-01 15:00] LABS: BASO # 0.1 10^3/uL (0.0-0.2); BASO % 0.6 % (0.0-1.0); EOS # 0.2 10^3/uL (0.0-0.50); EOS % 1.7 % (0.0-3.0); HEMATOCRIT 41.7 % (42.0-52.0); HEMOGLOBIN 13.8 g/dl (14.0-18.0); IMMATURE GRANULOCYTE % 0.7 % (0-3.0); LYMPH # 1.3 10^3/uL (1.5-4.5); LYMPH % 13.4 % (24.0-44.0); MEAN CORPUSCULAR HEMOGLOBIN 32.5 pg (27.0-33.0); MEAN CORPUSCULAR HGB CONC 33.1 g/dl (32.0-36.5); MEAN CORPUSCULAR VOLUME 98.1 fl (80.0-96.0); MONO # 0.7 10^3/uL (0.0-0.8); MONO % 7.9 % (0.0-5.0); NEUTROPHILS # 7.1 10^3/uL (1.8-7.7); NEUTROPHILS % 75.7 % (36.0-66.0); PLATELET COUNT, AUTOMATED 159 10^3/uL (150-450); RED BLOOD COUNT 4.25 10^6/uL (4.30-6.10); RED CELL DISTRIBUTION WIDTH 13.2 % (11.5-14.5); WHITE BLOOD COUNT 9.4 10^3/uL (4.0-10.0)
[2017-10-01] MEDS: NS 1,000 ML IV (15:00)
[2017-10-01 16:21] LABS: ALBUMIN 3.1 GM/DL (3.2-5.2); ALBUMIN/GLOBULIN RATIO 0.94 (1.00-1.93); ALKALINE PHOSPHATASE 110 U/L (45-117); ALT/SGPT 10 U/L (12-78); ANION GAP 7 MEQ/L (8-16); AST/SGOT 12 U/L (7-37); BILIRUBIN,DIRECT 0.2 MG/DL (0.0-0.2); BILIRUBIN,TOTAL 0.6 MG/DL (0.2-1.0); BLOOD UREA NITROGEN 14 MG/DL (7-18); CALCIUM LEVEL 8.7 MG/DL (8.8-10.2); CARBON DIOXIDE LEVEL 28 MEQ/L (21-32); CHLORIDE LEVEL 107 MEQ/L (98-107); CREATININE FOR GFR 1.04 MG/DL (0.70-1.30); GLOMERULAR FILTRATION RATE > 60.0 (>42); GLUCOSE, FASTING 131 MG/DL (70-100); LIPASE 131 U/L (73-393); POTASSIUM SERUM 4.1 MEQ/L (3.5-5.1); SODIUM LEVEL 142 MEQ/L (136-145); TOTAL PROTEIN 6.4 GM/DL (6.4-8.2)
== END 2017-10-01 17:53 | disposition home or self-care (01) ==
LOC: M ED 13:54
DX: R11.10 Vomiting, unspecified (principal); R19.7 Diarrhea, unspecified; I25.10 Atherosclerotic heart disease of native coronary artery without angina pectoris; J44.9 Chronic obstructive pulmonary disease, unspecified; F32.9 Major depressive disorder, single episode, unspecified; Z79.899 Other long term (current) drug therapy; Z79.02 Long term (current) use of antithrombotics/antiplatelets; Z79.51 Long term (current) use of inhaled steroids
CPT/HCPCS: 93005

== ENCOUNTER → 2018-01-23 | Outpatient (REF) | payer MEDICARE, MEDICAID | LOC: M LAB REF 17:09 | DX: J44.9 Chronic obstructive pulmonary disease, unspecified (principal); R05 Cough | CPT/HCPCS: 87205 ==

== ENCOUNTER → 2018-04-10 | Outpatient (CLI) | payer MEDICARE, MEDICAID ==
[~2018-04-10] MED LIST changes: -/ADVA50050; -/ADVA50050 INH; -/WARF25TA PO; -ADV500INH INH; -ALB2.5NEB INH; -ALBU1TAB4 PO; -ALBUPOW9 INH; -ASPI325T PO; -AZIT600T OR; -BABY81CH; -BREO1INH3 INH; -CHAN1PAK9 PO; -CIPR500T3 PO; -CLOP75TA2; -CLOP75TA2 PO; -CRES40TA PO; -DARV100T OR; -FLOM5CAP PO; -GABA-282 PO; -GABA300C2 PO; -INCR1INH IN; +ISOVUE-370 76% 100ML VIAL (Q9967) As Ordered; -LEVA1TAB2 PO; -METO50TA2 PO; -METOPROLOL PO; -NAPR500T; -NAPR500T6 PO; -NITR0.4S; -NORC1TAB4 PO; -OXYGEN INH; -PERCOCET PO; -PLAV75TA2; -POTA10TAB PO; -POTA4.25 PO; -PRED10TA PO; -PRED20TA OR; -PRED20TA PO; -PROAAER10 INH; -PROV90AE AD; -SERT50TA PO; -SOMA350T; -SPIR12.9 INH; -SPIR1CAP INH; -TOPR50TA; -TOPR50TA OR; -TOPR50TA PO; -TYLENOL PO; -ZOCO20TA; -o2 INH
== END ==
LOC: M RAD 13:03
DX: C34.11 Malignant neoplasm of upper lobe, right bronchus or lung (principal); J44.9 Chronic obstructive pulmonary disease, unspecified
CPT/HCPCS: Q9967

== ENCOUNTER 2018-05-09 14:17 | Emergency (ER) | payer MEDICARE, MEDICAID | END 2018-05-09 16:00 | disposition home or self-care (01) | LOC: M ED 14:17 | DX: S62.644A Nondisplaced fracture of proximal phalanx of right ring finger, initial encounter for closed fracture (principal); S62.344A Nondisplaced fracture of base of fourth metacarpal bone, right hand, initial encounter for closed fracture; W19.XXXA Unspecified fall, initial encounter; Y92.098 Other place in other non-institutional residence as the place of occurrence of the external cause; F10.120 Alcohol abuse with intoxication, uncomplicated; Z79.899 Other long term (current) drug therapy; Z79.02 Long term (current) use of antithrombotics/antiplatelets | CPT/HCPCS: 73110 ==

== ENCOUNTER 2018-07-15 15:40 | Inpatient (IN) | payer MEDICARE, MEDICAID ==
[~2018-07-15] VITALS: Ht 182.9 cm; Wt 68.1 kg
[~2018-07-15 15:40] MED LIST changes: +/ADVA50050; +/ADVA50050 INH; +/WARF25TA PO; +ADV500INH INH; +ALB2.5NEB INH; +ALBU1TAB4 PO; +ALBUPOW9 INH; +ASPI325T PO; +AZIT600T OR; +BABY81CH; +BREO1INH3 INH; +CHAN1PAK13 PO; +CHAN1PAK9 PO; +CIPR500T3 PO; +CLOP75TA2; +CLOP75TA2 PO; +CRES40TA PO; +DARV100T OR; +FLOM0.4C39 PO; +GABA-843 PO; +GABA300C2 PO; +INCR1INH IN; -ISOVUE-370 76% 100ML VIAL (Q9967) As Ordered; +LEVA1TAB2 PO; +METO50TA2 PO; +METOPROLOL PO; +NAPR500T; +NAPR500T6 PO; +NITR0.4S; +NORC1TAB4 PO; +OXYGEN INH; +PERCOCET PO; +PLAV75TA2; +POTA10808 PO; +POTA4.25 PO; +PRED10TA PO; +PRED20TA OR; +PRED20TA PO; +PROAAER10 INH; +PROV90AE AD; +SERT50TA PO; +SOMA350T; +SPIR12.9 INH; +SPIR1CAP INH; +TOPR50TA; +TOPR50TA OR; +TOPR50TA23 PO; +TYLENOL PO; +ZOCO20TA; +o2 INH
--- NOTE | 2018-07-15 16:14 | REP ---
Clinical: Cough and dyspnea. Comparison: 05/09/2017. Findings: Mediastinum and cardiac silhouette are stable. Cardiomegaly is again suggested. Lung suresh demonstrate diffuse fibrosis and emphysematous changes. Superimposed atelectasis cannot be excluded. No discrete focal consolidation, effusion, or pneumothorax. Skeletal structures intact. Impression: Cardiomegaly and chronic changes. Cannot exclude superimposed atelectasis. Electronically Signed by Sebastian Renteria MD 07/15/2018 04:06 P
[2018-07-15] MEDS ORDERED: NS 500 ML IV ONE ×3 (16:15→22:45)
[2018-07-15] MEDS: IPRATROPIUM 0.5MG/ALBUTEROL 2.5MG INH SOL UD 3ML (DUONEB)(J7620) NEB SCH ×3 (16:18→16:36)
[2018-07-15 16:20] LABS: BASO # 0.1 10^3/uL (0.0-0.2); BASO % 0.4 % (0.0-1.0); EOS # 0.3 10^3/uL (0.0-0.50); EOS % 1.6 % (0.0-3.0); HEMATOCRIT 39.3 % (42.0-52.0); HEMOGLOBIN 12.8 g/dl (13.5-17.5); LYMPH % 17.7 % (24.0-44.0); MEAN CORPUSCULAR HGB CONC 32.6 g/dl (32.0-36.5); MEAN CORPUSCULAR VOLUME 101.3 fl (80.0-96.0); MONO # 1.3 10^3/uL (0.0-0.8); MONO % 7.3 % (0.0-5.0); NEUTROPHILS # 12.3 10^3/uL (1.8-7.7); NEUTROPHILS % 72.3 % (36.0-66.0); PLATELET COUNT, AUTOMATED 195 10^3/uL (150-450); RED BLOOD COUNT 3.88 10^6/uL (4.30-6.10)
[2018-07-15 16:24] LABS: VENOUS BASE EXCESS 0.4 (-2.0-2.0); VENOUS HCO3 27.6 MEQ/L (23.0-27.0); VENOUS O2 SATURATION 72.8 % (60.0-80.0); VENOUS PARTIAL PRESSURE CO2 55.3 mmHg (38.0-50.0); VENOUS PARTIAL PRESSURE O2 43.1 mmHg (30.0-50.0); VENOUS PH 7.316 UNITS (7.330-7.430); VENOUS STANDARD HCO3 24.3 MEQ/L; VENOUS TOTAL CO2 29.3 MEQ/L (24.0-28.0)
[2018-07-15] MEDS ORDERED: TORS20TA2 PO (16:27)
[2018-07-15] MEDS ORDERED: LOSA25TA14 PO (16:27)
[2018-07-15] MEDS ORDERED: ASPI1TAB PO (16:27)
[2018-07-15] MEDS ORDERED: NAPR-885 PO (16:27)
[2018-07-15] MEDS ORDERED: NS 1,000 ML IV ONE (16:45)
[2018-07-15] MEDS ORDERED: LevoFLOXacin IV 750 MG in APPROPRIATE DILUENT 1 EA IV ONE (16:45)
[2018-07-15 16:56] LABS: ALT/SGPT 10 U/L (12-78); BILIRUBIN,DIRECT 0.2 MG/DL (0.0-0.2); BILIRUBIN,TOTAL 0.7 MG/DL (0.2-1.0); BLOOD UREA NITROGEN 19 MG/DL (7-18); CALCIUM LEVEL 8.6 MG/DL (8.8-10.2); CARBON DIOXIDE LEVEL 28 MEQ/L (21-32); CHLORIDE LEVEL 106 MEQ/L (98-107); CPK CREATINE PHOSPHOKINASE 62 U/L (39-308); CREATININE FOR GFR 1.44 MG/DL (0.70-1.30); GLOMERULAR FILTRATION RATE 51.1 (>42); GLUCOSE, FASTING 100 MG/DL (70-100); MB/CK RELATIVE INDEX 2.58 (< OR =4); NT-PRO BNP 251 PG/ML (<125); POTASSIUM SERUM 4.2 MEQ/L (3.5-5.1); SODIUM LEVEL 140 MEQ/L (136-145); TOTAL PROTEIN 6.5 GM/DL (6.4-8.2); TROPONIN I < 0.02 NG/ML (< 0.10)
[2018-07-15 16:56] LABS: ABG HCO3 24.3 MEQ/L (22.0-26.0); ABG PARTIAL PRESSURE CO2 38.1 mmHg (35.0-45.0); ABG PARTIAL PRESSURE O2 63.3 mmHg (75.0-100.0); ABG STANDARD HCO3 24.4 MEQ/L (22.0-26.0); ABG TOTAL CO2 25.4 MEQ/L (23.0-31.0); ABG pH (ARTERIAL) 7.422 UNITS (7.350-7.450)
[2018-07-15] MEDS ORDERED: methylPREDNISolone INJ 125 MG/2 ML VIAL (J2930) IV ONE (17:15)
[2018-07-15] MEDS ORDERED: ACETAMINOPHEN 650 MG SUPP PR PRN (18:15)
[2018-07-15] MEDS ORDERED: TIOT18INH INH (18:19)
[2018-07-15] MEDS ORDERED: GABA-843 PO (18:19)
--- NOTE | 2018-07-15 18:33 | HPEPDOC ---
General Date of Admission 07.15.18 Primary Care Physician: BILLY GUILLERMO M.D. Chief Complaint The patient is a 72-year-old male admitted with a reason for visit of SOB. History of Present Illness This is a 72 y/o male with past medical history of COPD, HTN, renal lithiasis, CAD, PVD, depression, hydronephrosis, squamous lung CA who presents to the ED with complaints of a one day history of 6-7 loose BM, increased SOB and decreased appetite with generalized weakness, he also states this morning he called EMS because he "slid" off of his couch this morning and couldn't get up off the floor because his legs cramped up and he felt weak. He denies any preceding symptoms before this, no LOC, no syncope, no chest pain, he denies losing consciousness and did not hit his head, he states he was sitting on his floor (he slid on his bottom and did not hit any extremity) for about an hour and did call EMS when his legs were too weak and cramped up for him to get off the floor. Denies headache or change in vision, no fevers, muscle aches or chills, no recent sick contact nor travel, he has never been intubated, he is on 4 L O2 at home. He follows with local retail product demo specialist and wafer line worker but cannot remember who and for what. No chest pain or heart palpitations, he has a chronic cough but does not think his chronic sputum production is worsened in purulence or volume/amount. He quit smoking cigarettes 6 months ago, prior to this was 1 ppd since he was a young man. He states his increased SOB over the past day or so is not worsened with laying flat but is worsened with ambulation. He states his diarrhea has improved, no loose BM today, admits to some nausea/vomiting yesterday but this has apparently subsided today too, no blood/mucus in stool nor blood/bile in vomitus one day ago. Home Medications Scheduled Aspirin (Aspirin 81) 81 Mg Tab, 81 MG PO DAILY, (Reported) Clopidogrel Bisulfate (Clopidogrel) 75 Mg Tab, 75 MG PO DAILY, (Reported) Fluticasone/Vilanterol (Breo Ellipta 200-25 Mcg/INH) 1 Inh Inh, 1 PUFF INH DAILY, (Reported) Gabapentin (Gabapentin) 300 Mg Cap, 300 MG PO QID, (Reported) Losartan Potassium (Losartan Potassium) 25 Mg Tab, 25 MG PO DAILY, (Reported) Potassium Citrate (Potassium Citrate ER) 15 Meq Tab, 15 MEQ PO BID, (Reported) Rosuvastatin Calcium (Crestor) 40 Mg Tab, 40 MG PO DAILY, (Reported) Sertraline Hcl (Sertraline HCl) 50 Mg Tab, 50 MG PO DAILY, (Reported) Tiotropium Rogers Monohydrate (Spiriva Handihaler) 5 Inhalation/Inhaler Powd, 18 MCG INH DAILY, (Reported) Torsemide (Torsemide) 20 Mg Tab, 10 MG PO DAILY, (Reported) TAKE 20MG IF WEIGHT GAIN >4LBS Scheduled PRN Albuterol Sulfate (Albuterol Sulfate) 2.5 Mg/0.5 Ml Neb, 2.5 MG INH QID PRN for SHORTNESS OF BREATH, (Reported) Albuterol Sulfate (Proair Hfa) 108 Mcg/Act Aer, 2 PUFF INH Q4H PRN for SHORTNESS OF BREATH, (Reported) Naproxen (Naproxen) 500 Mg Tab, 500 MG PO for PAIN, (Reported) Allergies Coded Allergies: No Known Allergies (Verified , 07/21/04) Past Medical History Medical History as per hpi Surgical History s/p chest tube in Apr 2017 for acute PTX after lung BX hip fracture in 2012 Family History Significant Family History: No pertinent family hx Social History * Smoker: former Smoker Alcohol: Denies Drugs: denies lives at home by himself, has a case/director social service check in on him regularly Review of Systems Constitutional: Reports: Malaise, Weakness; Denies: Chills, Fever, Night Sweats Pulmonary: Reports: Dyspnea, Cough Cardiovascular: Denies: Chest Pain, Palpitations, Orthopnea, Paroxysmal Noc. Dyspnea, Edema, Lt Headedness Gastrointestinal: Reports: Nausea, Vomiting, Diarrhea; Denies: Abdominal Pain, Constipation, Melena, Hematochezia Genitourinary: Denies: Dysuria Neurological: Reports: Weakness Psych: Reports: Mood Normal Physical Examination General Exam: Positive: Alert, Cooperative, Moderate Distress (dyspnea on exam conversational) Eye Exam: Positive: Conjunctiva & lids normal, EOMI ENT Exam: Positive: Mucous membr. moist/pink Neck Exam: Positive: Supple Chest Exam: Positive: Rhonchi, Wheezing, Diminished Heart Exam: Positive: Rate Normal, Normal S1, Normal S2; Negative: Gallops, Murmurs Abdomen Exam: Positive: Normal bowel sounds, Soft; Negative: Tenderness, Hepatospenomegaly Extremity Exam: Positive: Normal pulses; Negative: Clubbing, Cyanosis, Edema, Tenderness, Swelling Neuro Exam: Positive: Normal Speech Psych Exam: Positive: Mental status NL Vital Signs Vital Signs Date Time Temp Pulse Resp B/P (MAP) Pulse Ox O2 Delivery O2 Flow Rate FiO2 07/15/18 18:02 100 100 07/15/18 18:01 99/56 (70) 07/15/18 16:19 4.0 07/15/18 15:53 97.2 8 Room Air Laboratory Data Labs 24H Laboratory Tests 2 07/15/18 16:10: Lactic Acid Level 2.2*H 07/15/18 16:11: Immature Granulocyte % (Auto) 0.7, White Blood Count 17.0H, Red Blood Count 3.88L, Hemoglobin 12.8L, Hematocrit 39.3L, Mean Corpuscular Volume 101.3H, Mean Corpuscular Hemoglobin 33.0, Mean Corpuscular Hemoglobin Concent 32.6, Red Cell Distribution Width 14.8H, Platelet Count 195, Neutrophils (%) (Auto) 72.3H, Lymphocytes (%) (Auto) 17.7L, Monocytes (%) (Auto) 7.3H, Eosinophils (%) (Auto) 1.6, Basophils (%) (Auto) 0.4, Neutrophils # (Auto) 12.3H, Lymphocytes # (Auto) 3.0, Monocytes # (Auto) 1.3H, Eosinophils # (Auto) 0.3, Basophils # (Auto) 0.1, Nucleated Red Blood Cells % (auto) 0.0, Blood Gas Bicarbonate Standard 24.3, Venous Blood pH 7.316L, Venous Blood Partial Pressure CO2 55.3H, Venous Blood Partial Pressure O2 43.1, Venous Blood Total Carbon Dioxide 29.3H, Venous Blood HCO3 27.6H, Venous Blood Oxygen Saturation 72.8, Venous Blood Base Excess 0.4, Anion Gap 6L, Glomerular Filtration Rate 51.1, Calcium Level 8.6L, Aspartate Amino Transf (AST/SGOT) 11, Alanine Aminotransferase (ALT/SGPT) 10L, Alkaline Phosphatase 108, Total Bilirubin 0.7, Direct Bilirubin 0.2, Total Creatine Kinase 62, Creatine Kinase MB 2.0, Creatine Kinase MB Relative Index 2.58, Troponin I < 0.02, MI-Qii-K-Type Natriuretic Peptide 251H, Total Protein 6.5, Albumin 3.0L, Albumin/Globulin Ratio 0.86L, Thyroid Stimulating Hormone (TSH) 1.910 07/15/18 16:40: Blood Gas Bicarbonate Standard 24.4, Arterial Blood pH 7.422, Arterial Blood Partial Pressure CO2 38.1, Arterial Blood Partial Pressure O2 63.3L, Arterial Blood Total CO2 25.4, Arterial Blood HCO3 24.3, Arterial Blood Base Excess 0.0, Arterial Blood Oxygen Saturation 92.0L CBC/BMP Laboratory Tests 07/15/18 16:11 Red Blood Count 3.88 L, Mean Corpuscular Volume 101.3 H, Mean Corpuscular Hemoglobin 33.0, Mean Corpuscular Hemoglobin Concent 32.6, Red Cell Distribution Width 14.8 H, Neutrophils (%) (Auto) 72.3 H, Lymphocytes (%) (Auto) 17.7 L, Monocytes (%) (Auto) 7.3 H, Eosinophils (%) (Auto) 1.6, Basophils (%) (Auto) 0.4, Neutrophils # (Auto) 12.3 H, Lymphocytes # (Auto) 3.0, Monocytes # (Auto) 1.3 H, Eosinophils # (Auto) 0.3, Basophils # (Auto) 0.1 Microbiology Microbiology 07/15/18 Blood Culture, Received Pending 07/15/18 Blood Culture, Received Pending 07/15/18 Respiratory Virus Panel (PCR) ([facility]) - Final, Complete Assessment/Plan 1. SOB secondary to acute COPD exacerbation -CXR in ED appreciated, showed Cardiomegaly and chronic changes, cannot exclude superimposed atelectasis. Consolidation was not explicitly seen. -ABG in ED appreciated, does not appear patient is retaining CO2 -pt received one dose of Levaquin in ED., will continue for now based on kidney function and dose appropriately, WBC was elevated, pt afebrile -Duo-neb and 02 therapy -pt received IV solu-mederol in ED., c/w this for now, taper as appropriate for clinical status -Respiratory panel pending -pt is on home diuretic but does not know why, no ECHO on file, will order one, patient does not appear volume overloaded on physical exam, compensated -lactic acid elevated, likely secondary to respiratory distress, repeat in 4 hours 2. Diarrhea -can monitor for now, less likely infectious in etiology, patient states he has had no more loose BM today -if continued tomorrow, may consider GI panel 3. HTN -stable, a bit hypotensive on exam, can c/w home meds for now, monitor BP 4. CAD -unfortunately pt is poor historian, doesn't know why is is on plavix, denies heart stents nor heart surgery, denies PE or DVT in past -c/w plavix for now 5. DLP -C/w home medications for now 6. Depression -c/w home medications for now 7. History of lung mass-squamous lung CA -s/p bx last year, stable -pt follows with outpatient wafer line worker 8. Physical deconditioning -PT ordered 9. DVT px -SCD/TEDS/heparin sq Plan / VTE VTE Prophylaxis Ordered?: Yes GME ATTESTATION GME ATTESTATION My faculty preceptor for this patient encounter was physically present during the encounter and was fully available. All aspects of the patient interview, examination, medical decision making process, and medical care plan development were reviewed and approved by the faculty preceptor. The faculty preceptor is aware and concurs with the plan as stated in the body of this note and will attest to such by his/her cosignature. ATTENDING NOTE Pt seen and examined. Agree w A/P as above. BPs running low and will hold home losartan for now, otherwise plan as above. GIGI MENON DO Jul 15, 2018 18:32 LIBRADO TEMPLETON MD Jul 15, 2018 21:53
[2018-07-15 20:10] VITALS: BP 120/60
[2018-07-15] MEDS: HEPARIN SOD (PORCINE) 5000 UNITS/ML VIAL SC SCH (21:53)
[2018-07-15] MEDS: GABAPENTIN 300 MG CAP PO SCH (21:53)
[2018-07-15] MEDS: methylPREDNISolone INJ 125 MG/2 ML VIAL (J2930) IV SCH (23:03)
[2018-07-16 03:21] LABS: BASO % 0.1 % (0.0-1.0); EOS % 0.1 % (0.0-3.0); HEMATOCRIT 34.4 % (42.0-52.0); HEMOGLOBIN 11.2 g/dl (13.5-17.5); LYMPH # 0.4 10^3/uL (1.5-4.5); LYMPH % 3.7 % (24.0-44.0); MEAN CORPUSCULAR HGB CONC 32.6 g/dl (32.0-36.5); MEAN CORPUSCULAR VOLUME 101.5 fl (80.0-96.0); MONO # 0.2 10^3/uL (0.0-0.8); MONO % 1.9 % (0.0-5.0); NEUTROPHILS # 10.2 10^3/uL (1.8-7.7); NEUTROPHILS % 93.4 % (36.0-66.0); PLATELET COUNT, AUTOMATED 152 10^3/uL (150-450); RED BLOOD COUNT 3.39 10^6/uL (4.30-6.10); WHITE BLOOD COUNT 10.9 10^3/uL (4.0-10.0)
[2018-07-16 03:39] LABS: CALCIUM LEVEL 7.8 MG/DL (8.8-10.2); CREATININE FOR GFR 1.55 MG/DL (0.70-1.30); GLOMERULAR FILTRATION RATE 46.9 (>42); POTASSIUM SERUM 4.6 MEQ/L (3.5-5.1)
[2018-07-16 06:00] VITALS: BP 114/58
[2018-07-16] MEDS: methylPREDNISolone INJ 125 MG/2 ML VIAL (J2930) IV SCH ×3 (06:02→20:58)
[2018-07-16] MEDS: GABAPENTIN 300 MG CAP PO SCH ×4 (08:25→20:58)
[2018-07-16] MEDS: CLOPIDOGREL 75 MG TAB PO SCH (08:25)
[2018-07-16] MEDS: ROSUVASTATIN 10 MG TAB (CRESTOR) PO SCH (08:25)
[2018-07-16] MEDS: SERTRALINE HCL 50 MG TAB PO SCH (08:25)
[2018-07-16] MEDS: ASPIRIN 81 MG ENTERIC TAB PO SCH (08:25)
[2018-07-16] MEDS: HEPARIN SOD (PORCINE) 5000 UNITS/ML VIAL SC SCH ×2 (08:26→20:58)
[2018-07-16] MEDS ORDERED: TORSEMIDE 10 MG TABLET PO SCH (09:00)
[2018-07-16] MEDS ORDERED: LOSARTAN 25 MG TAB PO SCH (09:00)
[2018-07-16 14:00] VITALS: BP 108/55
--- NOTE | 2018-07-16 14:08 | IPN ---
DATE: 07/16/2018 SUBJECTIVE: Patient seen and examined in the room today. According to the patient, he feels much better since admission. One of the main reasons patient came to the emergency room because of severe diarrhea and nausea and vomiting and also worsening breathing. The patient stated since admission, diarrhea has improved. No recurrence of the nausea or vomiting. Patient still complains of weakness. Denies any fever or chills. OBJECTIVE: VITAL SIGNS: Temperature is 97.3, pulse 74, respiration 20, blood pressure 114/58, pulse ox 94% with nasal cannula. GENERAL: No sign of acute distress. Patient is alert and awake and comfortable. HEENT: Normocephalic, atraumatic. Extraocular muscles intact. CARDIOVASCULAR: Positive S1, S2 regular rate. LUNGS: Decreased lung sound. Mild wheeze. ABDOMEN: Soft, nontender. Nondistended. Bowel sounds present. EXTREMITIES: No edema. LABORATORY DATA: WBC 10.9, hemoglobin 11.2, hematocrit 34.4, platelet count 152. Sodium 138, potassium 4.6, chloride 106, carbon dioxide 22, BUN 21, creatinine 1.5, GFR is 46.9, fasting glucose 269, lactic acid 2.7, calcium 7.8. ASSESSMENT/PLAN: 1. Acute on chronic respiratory distress possibly secondary to chronic obstructive pulmonary disease (COPD) exacerbation. At this baseline, patient is using 3-4 liters nasal cannula around the clock. During admission, patient was found to have COPD exacerbation. The patient is on IV steroids. Patient is on Levaquin. Respiratory panel is negative. 2. Diarrhea: Symptoms improved after admission. Follow with a gastrointestinal (GI) panel if there is any recurrence of the diarrhea. 3. Coronary artery disease: Continue home medications. On aspirin, Plavix and statin. 4. History of squamous cell lung cancer. Followup with patient's rehabilitation physician. 5. Hypertension: Initially patient had hypotension. Patient had a fluid bolus. Diuretic is on hold. Continue to monitor the patient. 6. Depression: On Zoloft. 7. Deep venous thrombosis (DVT) prophylaxis: On heparin. MTDD
[2018-07-16] MEDS: TIOTROPIUM INHALER/CAPSULE (SPIRIVA) INH SCH (15:43)
[2018-07-16] MEDS: LevoFLOXacin IV 500 MG in APPROPRIATE DILUENT 1 EA IV SCH (18:01)
[2018-07-16 22:00] VITALS: BP 128/63
[2018-07-17] MEDS: methylPREDNISolone INJ 125 MG/2 ML VIAL (J2930) IV SCH ×2 (03:51→12:15)
[2018-07-17 05:05] LABS: BASO % 0.1 % (0.0-1.0); EOS % 0.2 % (0.0-3.0); HEMOGLOBIN 11.3 g/dl (13.5-17.5); LYMPH # 0.8 10^3/uL (1.5-4.5); LYMPH % 6.4 % (24.0-44.0); MEAN CORPUSCULAR HEMOGLOBIN 33.3 pg (27.0-33.0); MEAN CORPUSCULAR HGB CONC 33.2 g/dl (32.0-36.5); MEAN CORPUSCULAR VOLUME 100.3 fl (80.0-96.0); MONO # 0.6 10^3/uL (0.0-0.8); MONO % 5.2 % (0.0-5.0); NEUTROPHILS # 10.5 10^3/uL (1.8-7.7); PLATELET COUNT, AUTOMATED 183 10^3/uL (150-450); RED BLOOD COUNT 3.39 10^6/uL (4.30-6.10); WHITE BLOOD COUNT 12.1 10^3/uL (4.0-10.0)
[2018-07-17 05:33] LABS: CALCIUM LEVEL 8.5 MG/DL (8.8-10.2); CREATININE FOR GFR 1.33 MG/DL (0.70-1.30); POTASSIUM SERUM 4.5 MEQ/L (3.5-5.1)
[2018-07-17 06:00] VITALS: BP 123/58
[2018-07-17] MEDS: TIOTROPIUM INHALER/CAPSULE (SPIRIVA) INH SCH (08:02)
[2018-07-17] MEDS: GABAPENTIN 300 MG CAP PO SCH ×4 (08:41→20:05)
[2018-07-17] MEDS: CLOPIDOGREL 75 MG TAB PO SCH (08:41)
[2018-07-17] MEDS: ROSUVASTATIN 10 MG TAB (CRESTOR) PO SCH (08:41)
[2018-07-17] MEDS: SERTRALINE HCL 50 MG TAB PO SCH (08:41)
[2018-07-17] MEDS: ASPIRIN 81 MG ENTERIC TAB PO SCH (08:41)
[2018-07-17] MEDS: HEPARIN SOD (PORCINE) 5000 UNITS/ML VIAL SC SCH ×2 (08:41→20:05)
[2018-07-17] MEDS ORDERED: PNEUMOCOCCAL VACCINE 0.5ML SYRINGE(90732) PNEUMOVAX 23 IM ONE (09:00)
[2018-07-17 12:35] VITALS: BP 126/74
[2018-07-17 14:00] VITALS: BP 128/65
[2018-07-17] MEDS: LevoFLOXacin IV 500 MG in APPROPRIATE DILUENT 1 EA IV SCH (17:22)
--- NOTE | 2018-07-17 17:57 | IPNPDOC ---
Text Note Date of Service The patient was seen on 07/17/18. NOTE SUBJECTIVE: Patient is seen and examined in the room today. Patient states his breathing is improving. No recurrence of the nausea or vomiting. Denies diarrhea. Denies any fever or chills. OBJECTIVE: VITAL SIGNS: Listed below. GENERAL: No sign of acute distress. Patient is alert and awake and comfortable. HEENT: Normocephalic, atraumatic. Extraocular muscles intact. CARDIOVASCULAR: Positive S1, S2. regular rate. LUNGS: Decreased breath sound. Mild wheeze during expiration. ABDOMEN: Soft, nontender. Nondistended. Bowel sounds present. EXTREMITIES: No edema. LABORATORY DATA: Listed below. ASSESSMENT/PLAN: #. Acute on chronic respiratory distress - Secondary to chronic obstructive pulmonary disease (COPD) exacerbation. At this baseline, patient is using 3-4 liters nasal cannula around the clock. - On tapering steroids. Patient is on Levaquin. Respiratory panel is negative. #. Diarrhea: - Improved since admission. Follow with a gastrointestinal (GI) panel if there is any recurrence of the diarrhea. #. Coronary artery disease - On aspirin, Plavix and statin. #. History of squamous cell lung cancer. - Followup with patient's drug abuse technician. #. Hypertension: - Initially patient had hypotension. Patient had a fluid bolus. Diuretic is on hold. Continue to monitor the patient. #. Depression: On Zoloft. #. Deep venous thrombosis (DVT) prophylaxis: On heparin. VS,Fishbone, I+O VS, Fishbone, I+O Laboratory Tests 07/17/18 04:55 Red Blood Count 3.39 L, Mean Corpuscular Volume 100.3 H, Mean Corpuscular Hemoglobin 33.3 H, Mean Corpuscular Hemoglobin Concent 33.2, Red Cell Distribution Width 14.5, Neutrophils (%) (Auto) 87.0 H, Lymphocytes (%) (Auto) 6.4 L, Monocytes (%) (Auto) 5.2 H, Eosinophils (%) (Auto) 0.2, Basophils (%) (Auto) 0.1, Neutrophils # (Auto) 10.5 H, Lymphocytes # (Auto) 0.8 L, Monocytes # (Auto) 0.6, Eosinophils # (Auto) 0.0, Basophils # (Auto) 0.0, Calcium Level 8.5 L Vital Signs Date Time Temp Pulse Resp B/P (MAP) Pulse Ox O2 Delivery O2 Flow Rate FiO2 07/17/18 14:00 97.5 67 20 128/65 (86) 94 Nasal Cannula 3.0 I&O- Last 24 Hours up to 6 AM 07/17/18 06:00 Intake Total 1410 ml Output Total 925 ml Balance 485 ml FISH SESAY DO Jul 17, 2018 17:57
[2018-07-17] MEDS: predniSONE 20 MG TAB PO SCH (20:05)
[2018-07-17 22:00] VITALS: BP 119/60
[2018-07-18 05:48] LABS: BASO % 0.1 % (0.0-1.0); EOS % 0.1 % (0.0-3.0); HEMATOCRIT 33.6 % (42.0-52.0); HEMOGLOBIN 11.2 g/dl (13.5-17.5); LYMPH # 0.7 10^3/uL (1.5-4.5); LYMPH % 7.5 % (24.0-44.0); MEAN CORPUSCULAR HEMOGLOBIN 33.4 pg (27.0-33.0); MEAN CORPUSCULAR HGB CONC 33.3 g/dl (32.0-36.5); MEAN CORPUSCULAR VOLUME 100.3 fl (80.0-96.0); MONO # 0.6 10^3/uL (0.0-0.8); MONO % 5.7 % (0.0-5.0); NEUTROPHILS # 8.3 10^3/uL (1.8-7.7); NEUTROPHILS % 84.6 % (36.0-66.0); PLATELET COUNT, AUTOMATED 179 10^3/uL (150-450); RED BLOOD COUNT 3.35 10^6/uL (4.30-6.10); WHITE BLOOD COUNT 9.9 10^3/uL (4.0-10.0)
[2018-07-18 06:00] VITALS: BP 120/69
[2018-07-18 06:09] LABS: CALCIUM LEVEL 8.4 MG/DL (8.8-10.2); CREATININE FOR GFR 1.27 MG/DL (0.70-1.30)
[2018-07-18] MEDS: TIOTROPIUM INHALER/CAPSULE (SPIRIVA) INH SCH (08:10)
[2018-07-18] MEDS: predniSONE 20 MG TAB PO SCH ×2 (08:17→20:17)
[2018-07-18] MEDS: SERTRALINE HCL 50 MG TAB PO SCH (08:17)
[2018-07-18] MEDS: HEPARIN SOD (PORCINE) 5000 UNITS/ML VIAL SC SCH ×2 (08:17→20:17)
[2018-07-18] MEDS: ROSUVASTATIN 10 MG TAB (CRESTOR) PO SCH (08:17)
[2018-07-18] MEDS: GABAPENTIN 300 MG CAP PO SCH ×4 (08:17→20:17)
[2018-07-18] MEDS: CLOPIDOGREL 75 MG TAB PO SCH (08:17)
[2018-07-18] MEDS: ASPIRIN 81 MG ENTERIC TAB PO SCH (08:17)
--- NOTE | 2018-07-18 09:46 | ECGEPIP ---
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
[2018-07-18 14:00] VITALS: BP 130/63
[2018-07-18] MEDS: LevoFLOXacin IV 500 MG in APPROPRIATE DILUENT 1 EA IV SCH (18:02)
[2018-07-18 22:00] VITALS: BP 123/76
[2018-07-19 05:54] LABS: EOS % 0.2 % (0.0-3.0); HEMATOCRIT 33.2 % (42.0-52.0); HEMOGLOBIN 11.1 g/dl (13.5-17.5); LYMPH # 0.8 10^3/uL (1.5-4.5); LYMPH % 9.2 % (24.0-44.0); MEAN CORPUSCULAR HEMOGLOBIN 32.7 pg (27.0-33.0); MEAN CORPUSCULAR HGB CONC 33.4 g/dl (32.0-36.5); MEAN CORPUSCULAR VOLUME 97.9 fl (80.0-96.0); MONO # 0.6 10^3/uL (0.0-0.8); NEUTROPHILS # 7.5 10^3/uL (1.8-7.7); NEUTROPHILS % 82.2 % (36.0-66.0); PLATELET COUNT, AUTOMATED 174 10^3/uL (150-450); RED BLOOD COUNT 3.39 10^6/uL (4.30-6.10); WHITE BLOOD COUNT 9.1 10^3/uL (4.0-10.0)
[2018-07-19 06:00] VITALS: BP 126/60
[2018-07-19 06:21] LABS: BLOOD UREA NITROGEN 25 MG/DL (7-18); CALCIUM LEVEL 8.3 MG/DL (8.8-10.2); CARBON DIOXIDE LEVEL 24 MEQ/L (21-32); CHLORIDE LEVEL 110 MEQ/L (98-107); CREATININE FOR GFR 1.04 MG/DL (0.70-1.30); GLOMERULAR FILTRATION RATE > 60.0 (>42); GLUCOSE, FASTING 146 MG/DL (70-100); POTASSIUM SERUM 3.8 MEQ/L (3.5-5.1); SODIUM LEVEL 142 MEQ/L (136-145)
[2018-07-19] MEDS: GABAPENTIN 300 MG CAP PO SCH ×4 (09:15→20:53)
[2018-07-19] MEDS: CLOPIDOGREL 75 MG TAB PO SCH (09:15)
[2018-07-19] MEDS: predniSONE 20 MG TAB PO SCH ×2 (09:15→20:53)
[2018-07-19] MEDS: ROSUVASTATIN 10 MG TAB (CRESTOR) PO SCH (09:15)
[2018-07-19] MEDS: SERTRALINE HCL 50 MG TAB PO SCH (09:15)
[2018-07-19] MEDS: ASPIRIN 81 MG ENTERIC TAB PO SCH (09:15)
[2018-07-19] MEDS: HEPARIN SOD (PORCINE) 5000 UNITS/ML VIAL SC SCH ×2 (09:16→20:53)
[2018-07-19] MEDS: TIOTROPIUM INHALER/CAPSULE (SPIRIVA) INH SCH (10:51)
[2018-07-19 14:00] VITALS: BP 132/60
--- NOTE | 2018-07-19 16:36 | IPNPDOC ---
Text Note Date of Service The patient was seen on 07/19/18. NOTE SUBJECTIVE: Patient is seen and examined in the room today. He feels his breathing has been improving since admission. Denies diarrhea. Denies any fever or chills. OBJECTIVE: VITAL SIGNS: Listed below. GENERAL: No sign of acute distress. Patient is alert and awake and comfortab le. HEENT: Normocephalic, atraumatic. Extraocular muscles intact. CARDIOVASCULAR: Positive S1, S2. regular rate. LUNGS: Decreased breath sound. No wheeze. ABDOMEN: Soft, nontender. Nondistended. Bowel sounds present. EXTREMITIES: No edema. LABORATORY DATA: Listed below. ASSESSMENT/PLAN: #. Acute on chronic respiratory distress - Secondary to chronic obstructive pulmonary disease (COPD) exacerbation. - At this baseline, patient is using 3-4 liters nasal cannula at night. Titrate oxygen as tolerated. - On tapering steroids. Patient is on Levaquin. Respiratory panel is negative. #. Diarrhea: - Improved since admission. No recurrence. #. Coronary artery disease - On aspirin, Plavix and statin. #. History of squamous cell lung cancer. - Followup with patient's contact agent. #. Hypertension: - Initially patient had hypotension. Patient had a fluid bolus. - Blood pressure has been in satisfactory range. Restart torsemide. #. Depression: On Zoloft. #. Deep venous thrombosis (DVT) prophylaxis: On heparin. VS,Fishbone, I+O VS, Fishbone, I+O Laboratory Tests 07/19/18 05:17 Red Blood Count 3.39 L, Mean Corpuscular Volume 97.9 H, Mean Corpuscular Hemoglobin 32.7, Mean Corpuscular Hemoglobin Concent 33.4, Red Cell Distribution Width 14.1, Neutrophils (%) (Auto) 82.2 H, Lymphocytes (%) (Auto) 9.2 L, [place] cytes (%) (Auto) 6.0 H, Eosinophils (%) (Auto) 0.2, Basophils (%) (Auto) 0.0, Neutrophils # (Auto) 7.5, Lymphocytes # (Auto) 0.8 L, Monocytes # (Auto) 0.6, Eosinophils # (Auto) 0.0, Basophils # (Auto) 0.0, Calcium Level 8.3 L Vital Signs Date Time Temp Pulse Resp B/P (MAP) Pulse Ox O2 Delivery O2 Flow Rate FiO2 07/19/18 14:00 97.7 76 19 132/60 (84) 90 Room Air 07/19/18 06:00 1.0 I&O- Last 24 Hours up to 6 AM 07/19/18 06:00 Intake Total 1520 ml Output Total 250 ml Balance 1270 ml FISH SESAY DO Jul 19, 2018 16:36
[2018-07-19] MEDS: LevoFLOXacin IV 500 MG in APPROPRIATE DILUENT 1 EA IV SCH (17:35)
[2018-07-19] MEDS: TORSEMIDE 10 MG TABLET PO SCH (17:35)
[2018-07-19 22:00] VITALS: BP 136/69
[2018-07-20 06:00] VITALS: BP 119/68
[2018-07-20] MEDS ORDERED: LevoFLOXacin 750 MG TABLET PO SCH (06:00)
[2018-07-20 06:02] LABS: BASO % 0.1 % (0.0-1.0); EOS % 0.2 % (0.0-3.0); HEMATOCRIT 33.2 % (42.0-52.0); HEMOGLOBIN 11.3 g/dl (13.5-17.5); LYMPH % 9.7 % (24.0-44.0); MEAN CORPUSCULAR HEMOGLOBIN 32.7 pg (27.0-33.0); MONO # 0.7 10^3/uL (0.0-0.8); MONO % 7.1 % (0.0-5.0); NEUTROPHILS # 7.9 10^3/uL (1.8-7.7); NEUTROPHILS % 78.3 % (36.0-66.0); PLATELET COUNT, AUTOMATED 176 10^3/uL (150-450); RED BLOOD COUNT 3.46 10^6/uL (4.30-6.10); WHITE BLOOD COUNT 10.1 10^3/uL (4.0-10.0)
[2018-07-20 06:21] LABS: BLOOD UREA NITROGEN 29 MG/DL (7-18); CALCIUM LEVEL 8.2 MG/DL (8.8-10.2); CARBON DIOXIDE LEVEL 27 MEQ/L (21-32); CHLORIDE LEVEL 108 MEQ/L (98-107); CREATININE FOR GFR 1.12 MG/DL (0.70-1.30); GLOMERULAR FILTRATION RATE > 60.0 (>42); GLUCOSE, FASTING 161 MG/DL (70-100); SODIUM LEVEL 141 MEQ/L (136-145)
[2018-07-20] MEDS: CLOPIDOGREL 75 MG TAB PO SCH (08:32)
[2018-07-20] MEDS: SERTRALINE HCL 50 MG TAB PO SCH (08:32)
[2018-07-20] MEDS: HEPARIN SOD (PORCINE) 5000 UNITS/ML VIAL SC SCH (08:32)
[2018-07-20] MEDS: TORSEMIDE 10 MG TABLET PO SCH (08:32)
[2018-07-20] MEDS: GABAPENTIN 300 MG CAP PO SCH (08:32)
[2018-07-20] MEDS: predniSONE 20 MG TAB PO SCH (08:33)
[2018-07-20] MEDS: ASPIRIN 81 MG ENTERIC TAB PO SCH (08:33)
[2018-07-20] MEDS: ROSUVASTATIN 10 MG TAB (CRESTOR) PO SCH (08:33)
[2018-07-20] MEDS: TIOTROPIUM INHALER/CAPSULE (SPIRIVA) INH SCH (08:35)
[2018-07-20] MEDS ORDERED: PRED10TA2 PO (13:11)
[2018-07-20 14:00] VITALS: BP 130/60
--- NOTE | 2018-07-21 07:16 | IPN ---
DATE OF VISIT: 07/18/2018 SUBJECTIVE: Patient is seen and examined in the morning. Patient stated the breathing has been improving. Denies any fevers or chills. Continues on oxygen support. At baseline, patient only uses oxygen at night. OBJECTIVE: VITAL SIGNS: Temperature is 97.6, pulse 60, respirations 20, blood pressure 120/69, pulse oximetry is 93% with 3 liters nasal cannula. GENERAL: Patient is alert and awake. No signs of acute distress. HEENT: Normocephalic, atraumatic. Extraocular motor grossly intact. CARDIOVASCULAR: Positive S1, S2, regular rate. LUNGS: Diminished breath sounds. There are some expiratory wheezes bilaterally. ABDOMEN: Soft, nontender, nondistended. Bowel sounds present. EXTREMITIES: No edema. LABORATORY DATA: WBC 9.9, hemoglobin 11.3, hematocrit 33.6, platelet count is 179. Sodium is 141, potassium 4, chloride 111, carbon dioxide 24, BUN 27, creatinine is 1.27, GFR is 59, fasting glucose is 143, calcium is 8.4. ASSESSMENT AND PLAN: 1. Acute respiratory distress secondary to chronic obstructive pulmonary disease (COPD) exacerbation. At baseline, patient only uses 3-4 liters oxygen support at night. During the daytime, the patient does not require any oxygen support. Currently, patient still requires 3 liters oxygen to maintain satisfactory oxygen saturations. Patient is on tapering steroids. Patient on Levaquin. 2. Diarrhea. No recurrence since admission. Continue to monitor. 3. Coronary artery disease. On aspirin, Plavix, and statin. 4. History of squamous cell lung cancer. Continue outpatient followup. 5. Hypertension. Patient's blood pressure in the satisfactory range. Continue current management. 6. Depression. On Zoloft. 7. Lactic acidosis. Resolved. 8. Deep venous thrombosis (DVT) prophylaxis. On Lovenox. MTDD
--- NOTE | 2018-07-21 15:44 | DSES ---
DATE OF ADMISSION: 07/15/2018 DATE OF DISCHARGE: 07/20/2018 PRIMARY CARE PROVIDER: Surinder Santana MD CONSULTATIONS: None. PROCEDURES: None. DISCHARGE DIAGNOSES: 1. Acute on chronic respiratory distress secondary to chronic pulmonary obstructive disease exacerbation. 2. Chronic pulmonary obstructive disease exacerbation. 3. Severe diarrhea. 4. Coronary artery disease. 5. History of squamous cell lung cancer. 6. Hypertension. 7. Depression. HOSPITAL COURSE: The patient is a 72-year-old gentleman presenting to [facility] on July 15, 2018 with the chief complaint of acute worsening of chronic respiratory distress. The patient was diagnosed with chronic pulmonary obstructive disease (COPD) exacerbation. The patient was admitted under the hospitalist service. The patient was started on intravenous (IV) steroids. Diagnostic workup was ordered. The patient had increased oxygen support and titrated with nasal cannula. The patient was also started on antibiotics. The patient started to show improvement with his respiratory symptoms very slowly and steroids were titrated according to the patient's clinical presentation. The patient was able to be completely weaned off the oxygen during the daytime, which is about the patient's respiratory baseline and the patient passed physical therapy on July 20, 2018. The patient is stable for discharge with the recommendation to followup with the primary care provider, Dr. Surinder Santana, in one week. OBJECTIVE: VITAL SIGNS ON THE DAY OF DISCHARGE: Temperature 97.8, pulse 80, respirations 19, blood pressure 130/60, pulse oxygen 92% on room air. LABORATORY DATE ON DAY OF DISCHARGE: WBC 10.1, hemoglobin 11.43, hematocrit 33.2, platelet count 176. Sodium 141, potassium 4, chloride 108, carbon dioxide 27, BUN 39, creatinine 1.12, GFR greater than 60, fasting glucose 161, calcium 8.2. MICROBIOLOGY: Blood cultures on July 15, 2018 negative after five days times two sets. Respiratory panel on July 15, 2018 was negative. IMAGING STUDIES: Chest x-ray on July 15, 2018 shows cardiomegaly and chronic changes, cannot exclude superimposed atelectasis. DISCHARGE MEDICATIONS: - prednisone taper - albuterol 2.5 mg inhalation four times a day as needed - ProAir 2 puff inhalation every 4 hours as needed - aspirin 81 mg by mouth daily - Plavix 75 mg by mouth daily - Breo one puff inhalation daily - gabapentin 300 mg by mouth four times a day - losartan 25 mg by mouth daily - Naproxen 500 mg by mouth as needed pain - potassium citrate 50 mEq by mouth twice a day - Crestor 40 mg by mouth daily - Sertraline 50 mg by mouth daily - Spiriva 18 mcg inhalation daily - Torsemide 10 mg by mouth daily DISCHARGE INSTRUCTIONS: Discontinue lines, discharge to home. Activity as tolerated. Low salt diet as tolerated. The patient should followup with his primary care provider, Dr. Surinder Santana in one week. DISCHARGE CONDITION: Fair. DISCHARGE TIME: Greater than 30 minutes.
== END 2018-07-20 15:10 | disposition home health service (06) | DRG 191 ==
LOC: M ED 15:40 → M ED INP 17:53 → M MSPAV 20:12
PROVIDERS: ADMIT Internal Medicine; ATTEND Internal Medicine
DX: J44.1 Chronic obstructive pulmonary disease with (acute) exacerbation (principal); E87.2 Acidosis; I10 Essential (primary) hypertension; I25.10 Atherosclerotic heart disease of native coronary artery without angina pectoris; I73.9 Peripheral vascular disease, unspecified; R19.7 Diarrhea, unspecified; R06.03 Acute respiratory distress; F32.9 Major depressive disorder, single episode, unspecified; Z85.118 Personal history of other malignant neoplasm of bronchus and lung; Z99.81 Dependence on supplemental oxygen; Z87.891 Personal history of nicotine dependence; Z79.82 Long term (current) use of aspirin; Z79.899 Other long term (current) drug therapy

== ENCOUNTER → 2018-08-19 | Outpatient (CLI) | payer MEDICARE, MEDICAID ==
[~2018-08-19] MED LIST changes: +ASPI1TAB PO; +LOSA25TA14 PO; +NAPR-885 PO; +PRED10TA2 PO; +TIOT18INH INH; +TORS20TA2 PO
--- NOTE | 2018-08-19 18:16 | REP ---
Chest two views HISTORY: Cough Comparison: 07/15/2018 An increase in interstitial markings is present in the lungs consistent with chronic interstitial fibrosis. Bullae are present in the the upper lobes. The cardiac silhouette is enlarged. The pulmonary vasculature is normal in appearance. The bony structure is intact. IMPRESSION: 1. Chronic interstitial fibrosis. 2. Cardiomegaly. Electronically Signed by Cl Bullard MD 08/19/2018 06:07 P
== END ==
LOC: M WUC 16:09
PROVIDERS: ATTEND Nurse Practitioner Family
DX: R05 Cough (principal); J84.10 Pulmonary fibrosis, unspecified; I51.7 Cardiomegaly

== ENCOUNTER → 2018-09-26 | Outpatient (CLI) | payer MEDICARE, MEDICAID ==
--- NOTE | 2018-09-26 13:53 | REP ---
Chest two views HISTORY: COPD Comparison: 08/19/2018 An increase in interstitial markings is present in the lungs consistent with chronic interstitial fibrosis. Bullae are present in the upper lobes. The cardiac silhouette is enlarged. The pulmonary vasculature is normal in appearance. The bony structure is intact. IMPRESSION: 1. Chronic interstitial fibrosis. 2. Cardiomegaly. Electronically Signed by Cl Bullard MD 09/26/2018 01:45 P
== END ==
LOC: M WUC 12:50
PROVIDERS: ATTEND Family Medicine
DX: J44.9 Chronic obstructive pulmonary disease, unspecified (principal); I51.7 Cardiomegaly; J84.112 Idiopathic pulmonary fibrosis

== ENCOUNTER → 2019-01-12 | Outpatient (CLI) | payer MEDICARE, MEDICAID ==
[~2019-01-12] MED LIST changes: -/ADVA50050; -/ADVA50050 INH; -/WARF25TA PO; +ADVA1AER2; +ADVA1AER2 INH; -ASPI1TAB PO; +ASPI81TA26 PO; +COUM1TAB18 PO; +METO-743; +METO-743 OR; -NORC1TAB4 PO; +NORC1TAB7 PO; +OXYC1TAB23 PO; -PERCOCET PO; +PRED-351 PO; -PRED10TA PO; +SERT-141 PO; -SERT50TA PO; -TOPR50TA; -TOPR50TA OR; +TOPR50TA PO; -TOPR50TA23 PO
== END ==
LOC: M PT 12:35
PROVIDERS: ATTEND Family Medicine
DX: R26.81 Unsteadiness on feet (principal); R29.6 Repeated falls

== ENCOUNTER 2019-02-04 13:45 | Emergency (ER) | payer MEDICARE, MEDICAID ==
[2019-02-04] MEDS ORDERED: ALBUTEROL SULFATE 2.5 MG/0.5 ML INH NEB SOLN INH ONE (14:15)
[2019-02-04] MEDS ORDERED: IPRATROPIUM 0.5MG/ALBUTEROL 2.5MG INH SOL UD 3ML (DUONEB)(J7620) NEB ONE (14:15)
[2019-02-04 15:04] LABS: VENOUS BASE EXCESS -1.9 (-2.0-2.0); VENOUS O2 SATURATION 78.8 % (60.0-80.0); VENOUS PARTIAL PRESSURE CO2 50.5 mmHg (38.0-50.0); VENOUS PARTIAL PRESSURE O2 49.3 mmHg (30.0-50.0); VENOUS PH 7.312 UNITS (7.330-7.430); VENOUS STANDARD HCO3 22.5 MEQ/L; VENOUS TOTAL CO2 26.5 MEQ/L (24.0-28.0)
[2019-02-04 15:10] LABS: BASO % 0.4 % (0.0-1.0); EOS # 0.2 10^3/uL (0.0-0.50); EOS % 2.2 % (0.0-3.0); HEMOGLOBIN 14.3 g/dl (13.5-17.5); LYMPH # 2.5 10^3/uL (1.5-4.5); LYMPH % 22.1 % (24.0-44.0); MEAN CORPUSCULAR HEMOGLOBIN 32.4 pg (27.0-33.0); MEAN CORPUSCULAR HGB CONC 32.5 g/dl (32.0-36.5); MEAN CORPUSCULAR VOLUME 99.5 fl (80.0-96.0); MONO # 0.8 10^3/uL (0.0-0.8); NEUTROPHILS # 7.5 10^3/uL (1.8-7.7); NEUTROPHILS % 67.4 % (36.0-66.0); PLATELET COUNT, AUTOMATED 196 10^3/uL (150-450); RED BLOOD COUNT 4.42 10^6/uL (4.30-6.10); WHITE BLOOD COUNT 11.1 10^3/uL (4.0-10.0)
[2019-02-04] MEDS ORDERED: ISOVUE-370 76% 100ML VIAL (Q9967) As Ordered ONE (15:44)
[2019-02-04 15:47] LABS: ALBUMIN 3.3 GM/DL (3.2-5.2); ALT/SGPT 12 U/L (12-78); BILIRUBIN,DIRECT < 0.1 MG/DL (0.0-0.2); BILIRUBIN,TOTAL 0.6 MG/DL (0.2-1.0); CK-MB VALUE MASS 2.3 NG/ML (<3.6); CPK CREATINE PHOSPHOKINASE 86 U/L (39-308); LIPASE 186 U/L (73-393); MB/CK RELATIVE INDEX 2.67 (< OR =4); NT-PRO BNP 135 PG/ML (<450); TOTAL PROTEIN 7.3 GM/DL (6.4-8.2); TROPONIN I < 0.02 NG/ML (< 0.10)
[2019-02-04 16:26] LABS: INR 1.11
[2019-02-04 16:27] LABS: PARTIAL THROMBOPLASTIN TIME 35.4 SECONDS (25.0-38.4)
[2019-02-04] MEDS ORDERED: DOXY-350 PO (16:52)
[2019-02-04] MEDS ORDERED: PRED20TA PO (16:52)
[2019-02-04 16:59] VITALS: BP 127/67
[2019-02-04] MEDS ORDERED: dexameTHASONE 20 MG/5 ML VIAL (J1100) IV ONE (17:00)
[2019-02-04] MEDS ORDERED: DOXYCYCLINE HYCLATE 100 MG TAB PO ONE (17:00)
--- NOTE | 2019-02-04 17:21 | REP ---
HISTORY: Dyspnea. COMPARISON: Standard contrast enhanced chest CT of 04/10/2018. CONTRAST: 100 mL Isovue-370. There is excellent visualization of the pulmonary arterial vasculature. There are no focal filling defects present that would be considered consistent with acute pulmonary emboli. There are no pleural or pericardial effusions. There is thoracic aortic atherosclerotic change. There is right hilar adenopathy which has developed since the last exam of 04/10/2018. There is also evidence of mediastinal adenopathy, also developed since the last exam. There are no pleural or pericardial effusions. Evaluation of the osseous structures show them to be stable. Evaluation of the lung suresh again show hyperexpansion and emphysematous changes with scattered asymmetrical opacities consistent with fibrotic change and/or subsegmental atelectatic change. These areas could obscure a significant nodule. In the posterior segment of the right upper lobe there is a spiculated 1.3 cm size nodule which represents a change from the prior exam. Scattered parenchymal bullae and pleural blebs are noted, status quo. IMPRESSION: 1. There is no evidence of a pulmonary embolus. 2. There is right hilar and mediastinal adenopathy as described above. 3. There is a new spiculated 1.3 cm size nodule in the posterior segment of the right upper lobe. Neoplasm cannot be ruled out. According to the revised Veronica Society criteria, this lesions represents a category 4B lesion for which CT/PET and or tissue sampling is recommended at this time. 4. Chronic lung field changes and other findings as described above. Electronically Signed by Alec Wolf DO 02/04/2019 05:33 P
--- NOTE | 2019-02-04 17:26 | REP ---
HISTORY: Abdominal pain. COMPARISON: The latest prior for comparison is 05/09/2016. CONTRAST: 100 mL Isovue-370. The liver, spleen, pancreas, adrenal glands, and kidneys are unchanged. Incidental right renal cyst is noted, status quo. There is no precontrast enhanced exam for comparison. There is a near calcific density in the inferior pole of the right kidney not present on the prior exam and not causing obstructive phenomenon. It is difficult to evaluate since there are no precontrast images to review. The abdominal aorta and periaortic regions are within normal limits for the patient's age. There is calcific atherosclerotic change in the abdominal aorta. The bowel loops and their mesenteries are within normal limits. There is no free fluid or free air. There is no evidence of an intrabdominal mass or adenopathy. CT PELVIS: The bowel loops and their mesenteries are within normal limits. There is no evidence of a mass or adenopathy. There is no free fluid or free air. Bone window technique throughout the examination shows chronic spinal, hip, sacroiliac joint degenerative changes. There has been previous left hip pinning. IMPRESSION: There is no evidence of acute intraabdominal or intrapelvic disease. Findings as described above. Electronically Signed by Alec Wolf DO 02/04/2019 05:33 P
--- NOTE | 2019-02-04 20:43 | ECGEPIP ---
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
--- NOTE | 2019-02-05 13:08 | ED PDOC ---
Post-Departure Follow-Up dr cade faxed formal report of cta chest for fu Ortega Hull MD Feb 05, 2019 13:08
== END 2019-02-04 17:10 | disposition home or self-care (01) ==
LOC: EDBD 13:45 → M ED 13:45
DX: R91.1 Solitary pulmonary nodule (principal); J44.1 Chronic obstructive pulmonary disease with (acute) exacerbation; I25.10 Atherosclerotic heart disease of native coronary artery without angina pectoris; I10 Essential (primary) hypertension; C34.90 Malignant neoplasm of unspecified part of unspecified bronchus or lung; Z87.442 Personal history of urinary calculi; Z72.0 Tobacco use; Z79.82 Long term (current) use of aspirin; Z79.899 Other long term (current) drug therapy
CPT/HCPCS: 71275; 74177; 80047; 80076; 82550; 82553; 82803; 83690; 83880; 84443; 84484; 85025; 85610; 85730; 87040; 93005; 93041; 94640; 96374; 99285; J1100; Q9967

== ENCOUNTER → 2019-03-03 | Outpatient (CLI) | payer MEDICARE, MEDICAID ==
[~2019-03-03] MED LIST changes: +DOXY-350 PO
--- NOTE | 2019-03-03 17:07 | REP ---
Body PET CT scan for restaging of right upper lobe non-small cell lung carcinoma: Comparisons are the prior PET CT scan dated 07/28/[address] dated 04/10/2018. The patient underwent SPIR teen June 2017 for artery single right upper lobe lung nodule. Whole-body scanning is performed from skull base to the upper thighs. Neck and supraclavicular areas: There is focal hypermetabolic uptake in the soft tissues of the nose with the standard uptake value measuring 4.6. Upon review, there was hypermetabolic uptake in this area on the comparison study. This is nonspecific but clinical evaluation is recommended. Determine if there is a nasal skin lesion. There are no other hypermetabolic foci in the neck or supraclavicular areas. Chest: There are no hypermetabolic foci. The hypermetabolic activity related to the patient's known right upper lobe lung nodule on the comparison CT is no longer present. There is a new non hypermetabolic focus pleural-based posterolaterally in the right upper lobe, not present previously with a standard uptake value of 2.3, possibly related to radiation. On the comparison CT this area. There is a new zone of increased parenchymal density peripherally in the right upper lobe. A portion of which is this non hypermetabolic focus. This new peripheral density right upper lobe and a also be related to radiation therapy/radiation fibrosis. On the comparison CT. On the PET scan today the fiducial marker in the left upper lobe is again identified. There is no evidence of tumor recurrence. The tiny nodular density adjacent to the fiducial markers unchanged in size from the CT scan of 04/10/2018. There are no other hypermetabolic foci in the chest. Abdomen, pelvis and upper thighs: There is focal borderline hypermetabolic uptake along the anterior margin of the right gluteus lobo muscle, not present previously. This is nonspecific and may be related to muscular sprain or may be an injection site. There are no other hypermetabolic foci. Specifically there are no hepatic or adrenal foci. Incidentally, there appears to be slightly greater radiotracer excretion. The right kidney than the left. This may represent a variable renal function right versus left. Impression: The patients known right upper lobe lung nodule demonstrates no radiotracer uptake on the study today as a change from the comparison study. There has been no size increase in the nodule on the CT scan accompanying the PET scan today. However, there is new increased parenchymal density peripherally posterolaterally in the right upper lobe as an interval change demonstrating non hypermetabolic uptake. This may represent postradiation change in the lung. There is new borderline hypermetabolic uptake along the anterior margin of the right gluteus lobo muscle. This may represent injection site or muscular sprain. There are no other hypermetabolic foci. The study is performed with 9.88 mCi of F 18 FDG. Electronically Signed by Bonifacio Kramer MD 03/03/2019 04:59 P
== END ==
LOC: M PLARAD 09:28
PROVIDERS: ATTEND Internal Medicine Medical Oncology
DX: C34.11 Malignant neoplasm of upper lobe, right bronchus or lung (principal)
CPT/HCPCS: 78815; A9552

== ENCOUNTER → 2019-05-18 | Outpatient (CLI) | payer MEDICARE, MEDICAID ==
--- NOTE | 2019-05-18 15:31 | REP ---
Two-view chest: 05/18/2019. Indication: Dyspnea. Comparison: 02/04/2019. Findings: Linear atelectasis of the right upper lobe is more conspicuous. Surgical clip of the right upper lobe is present. The cardiomediastinal silhouette is unremarkable/stable. There is no pleural effusion or pneumothorax. The left lung is clear. Impression: No acute cardiopulmonary process. Electronically Signed by Issac Johnson DO 05/18/2019 03:23 P
== END ==
LOC: M WUC 14:48
PROVIDERS: ATTEND Internal Medicine Cardiovascular Disease
DX: R06.02 Shortness of breath (principal)

== ENCOUNTER 2019-05-27 09:12 | Outpatient (RCR) | payer MEDICARE, MEDICAID | END 2019-06-13 | LOC: M ST 09:12 | PROVIDERS: ATTEND Family Medicine | DX: Z51.89 Encounter for other specified aftercare (principal); R13.10 Dysphagia, unspecified; J44.9 Chronic obstructive pulmonary disease, unspecified; C34.11 Malignant neoplasm of upper lobe, right bronchus or lung ==

== ENCOUNTER → 2019-06-05 | Outpatient (CLI) | payer MEDICARE, MEDICAID ==
--- NOTE | 2019-06-05 16:55 | REP ---
Modified barium swallow: History: Oral pharyngeal dysphagia. Rule out aspiration. Technique: Study is performed with lateral video fluoroscopy in conjunction with the swallowing therapist. Fluoroscopy time is 1.5 minutes. Oral pharyngeal phase of barium swallow showed no major motor discoordination with thin liquids, pudding, or solid textured ingested material. No laryngeal penetration or reflux was observed. The patient is edentulous. Impression: No major motor discoordination of swallow is seen. Electronically Signed by Duane Lemus MD 06/05/2019 05:02 P
== END ==
LOC: M ST 11:57
PROVIDERS: ATTEND Family Medicine
DX: R13.12 Dysphagia, oropharyngeal phase (principal)

== ENCOUNTER → 2019-06-29 | Outpatient (CLI) | payer MEDICARE, MEDICAID ==
[2019-06-29 12:42] LABS: BASO # 0.1 10^3/uL (0.0-0.2); BASO % 0.6 % (0.0-1.0); EOS # 0.2 10^3/uL (0.0-0.5); EOS % 2.5 % (0.0-3.0); HEMATOCRIT 42.5 % (42.0-52.0); HEMOGLOBIN 13.5 g/dl (13.5-17.5); LYMPH # 1.5 10^3/uL (1.5-5.0); LYMPH % 17.1 % (24.0-44.0); MEAN CORPUSCULAR HEMOGLOBIN 31.3 pg (27.0-33.0); MEAN CORPUSCULAR HGB CONC 31.8 g/dl (32.0-36.5); MEAN CORPUSCULAR VOLUME 98.4 fl (80.0-96.0); MONO # 0.5 10^3/uL (0.0-0.8); MONO % 5.5 % (0.0-5.0); NEUTROPHILS # 6.6 10^3/uL (1.5-8.5); NEUTROPHILS % 73.5 % (36.0-66.0); PLATELET COUNT, AUTOMATED 206 10^3/uL (150-450); RED BLOOD COUNT 4.32 10^6/uL (4.30-6.10); WHITE BLOOD COUNT 8.9 10^3/uL (4.0-10.0)
[2019-06-29 13:10] LABS: ALBUMIN 3.2 GM/DL (3.2-5.2); BILIRUBIN,TOTAL 0.5 MG/DL (0.2-1.0); CALCIUM LEVEL 8.9 MG/DL (8.8-10.2); CREATININE FOR GFR 1.43 MG/DL (0.70-1.30); GLOMERULAR FILTRATION RATE 51.3 (>42); POTASSIUM SERUM 4.5 MEQ/L (3.5-5.1); TOTAL PROTEIN 6.8 GM/DL (6.4-8.2)
== END ==
LOC: M LAB 11:33
PROVIDERS: ATTEND Internal Medicine Medical Oncology
DX: C34.91 Malignant neoplasm of unspecified part of right bronchus or lung (principal)

== ENCOUNTER → 2019-06-30 | Outpatient (CLI) | payer MEDICARE, MEDICAID ==
[~2019-06-30] MED LIST changes: +ISOVUE-370 76% 100ML VIAL (Q9967) As Ordered ONE
--- NOTE | 2019-06-30 15:17 | REP ---
CT CHEST WITH IV CONTRAST: TECHNIQUE: Axial contrast enhanced images from the thoracic inlet to the upper abdomen using 100 mL Isovue 370 intravenous contrast material with multiplanar reformations. Comparison is 02/04/2019. In the right upper lobe there is again a band of parenchymal opacity peripherally, posterolaterally, likely representing post radiation fibrosis. At the posterior aspect of this band of density there is increased ill-defined parenchymal opacity compared to the prior study. This may indicate progressive fibrosis or superimposed acute infiltrate. Recommend close followup. Otherwise there is diffuse interstitial opacity bilaterally appearing similar to the prior study. There is diffuse bronchiolar wall thickening. No other new parenchymal opacities are seen. Mediastinal and right hilar lymph nodes are unchanged in size and appearance. There is no new adenopathy. The heart is not enlarged. There is calcification of the thoracic aorta. There is ectasia of the ascending thoracic aorta up to 4.6 cm. There is no pleural or pericardial effusion. There are degenerative changes of the spine. The patient has had a prior cholecystectomy. Spleen is mildly enlarged. Small cyst is seen in the anterior right kidney and there is a central calcification in the collecting system measuring about 7.0 mm. There is no hydronephrosis bilaterally. IMPRESSION: Chronic interstitial changes diffusely bilaterally. In the right upper lobe posterolaterally there is a band of density most compatible with postradiation fibrosis. There is increased ill-defined patchy parenchymal opacity at the posterior aspect of the right upper lobe in this region. The opacity has increased since the prior study of 02/04/2019. It may represent progressive fibrosis or superimposed acute infiltrate. Early neoplastic change cannot totally be excluded. Recommend short term followup. Mediastinal and right hilar lymph nodes are stable. Electronically Signed by Bonifacio Braswell MD 07/01/2019 07:12 P
== END ==
LOC: M RAD 13:20
PROVIDERS: ATTEND Internal Medicine Medical Oncology
DX: C34.91 Malignant neoplasm of unspecified part of right bronchus or lung (principal); N28.1 Cyst of kidney, acquired; J84.9 Interstitial pulmonary disease, unspecified
CPT/HCPCS: 71260; Q9967

== ENCOUNTER 2019-08-23 16:58 | Inpatient (IN) | payer MEDICARE, MEDICAID ==
[~2019-08-23] VITALS: Ht 182.9 cm; Wt 95.7 kg
[~2019-08-23 16:58] MED LIST changes: -ISOVUE-370 76% 100ML VIAL (Q9967) As Ordered ONE
[2019-08-23] MEDS ORDERED: NS 1,000 ML IV SCH (17:26)
[2019-08-23] MEDS ORDERED: ONDANSETRON 4MG/2ML VIAL (J2405) IV ONE (17:30)
[2019-08-23 18:21] LABS: BASO # 0.1 10^3/uL (0.0-0.2); BASO % 0.6 % (0.0-1.0); EOS # 0.3 10^3/uL (0.0-0.5); EOS % 2.5 % (0.0-3.0); HEMATOCRIT 41.9 % (42.0-52.0); HEMOGLOBIN 13.2 g/dl (13.5-17.5); LYMPH # 1.5 10^3/uL (1.5-5.0); LYMPH % 14.2 % (24.0-44.0); MEAN CORPUSCULAR HEMOGLOBIN 31.6 pg (27.0-33.0); MEAN CORPUSCULAR HGB CONC 31.5 g/dl (32.0-36.5); MEAN CORPUSCULAR VOLUME 100.2 fl (80.0-96.0); MONO # 0.9 10^3/uL (0.0-0.8); MONO % 8.6 % (0.0-5.0); NEUTROPHILS # 7.6 10^3/uL (1.5-8.5); NEUTROPHILS % 73.4 % (36.0-66.0); PLATELET COUNT, AUTOMATED 190 10^3/uL (150-450); RED BLOOD COUNT 4.18 10^6/uL (4.30-6.10); WHITE BLOOD COUNT 10.4 10^3/uL (4.0-10.0)
--- NOTE | 2019-08-23 18:24 | REP ---
Clinical: Preoperative assessment. Comparison: 05/18/2019. Findings: Mediastinum and cardiac silhouette are stable. Ill-defined area of opacity/scarring in the right mid/upper lung zone along with diffuse chronic interstitial changes are similar to prior examination. No obvious acute consolidation or effusion. No pneumothorax. Skeletal structures intact. Impression: Stable appearing chronic changes. If the patient remains symptomatic consider chest CT for further investigation. Electronically Signed by Sebastian Renteria MD 08/23/2019 06:16 P
--- NOTE | 2019-08-23 18:26 | REP ---
Clinical: Trauma. Technique: AP and frog lateral views of the mid to distal femur. Findings: Visualized portions of the femur demonstrate age-related changes without further acute fracture or dislocation. Right hip fracture noted on pelvic/hip series. Impression: Visualized portions of the femur appear intact. Electronically Signed by Sebastian Renteria MD 08/23/2019 06:18 P
--- NOTE | 2019-08-23 18:28 | REP ---
Clinical: Trauma. Technique: Frontal view of the pelvis with neutral and frog lateral views of the right hip. Findings: There is a comminuted fracture involving the intertrochanteric portion of the right femur. Age related osteopenia and degenerative changes noted throughout the remainder of the examination. Evidence for prior left femoral neck pinning and iliac stenting. Impression: Comminuted intertrochanteric fracture of the right proximal femur. Electronically Signed by Sebastian Renteria MD 08/23/2019 06:19 P
[2019-08-23 18:37] LABS: INR 1.14; PROTHROMBIN TIME 14.3 SECONDS (11.8-14.0)
[2019-08-23 18:54] LABS: CALCIUM LEVEL 8.6 MG/DL (8.8-10.2); CREATININE FOR GFR 1.26 MG/DL (0.70-1.30); GLOMERULAR FILTRATION RATE 59.4 (>42); POTASSIUM SERUM 4.9 MEQ/L (3.5-5.1)
--- NOTE | 2019-08-23 19:14 | HPEPDOC ---
[facility] Medical History & Physical Date of Admission Aug 23, 2019 Date of Service: Aug 23, 2019 Primary Care Physician: BILLY GUILLERMO M.D. Attending Physician: YVETTE JACKMAN MD History and Physical TIME OF SERVICE: 7:45 PM CHIEF COMPLAINT: Fall HISTORY OF PRESENT ILLNESS: This is a 73 year old male who presented for evaluation after having a fall while trying to get up to open the door. Part of the fall, he felt dizzy and reported that he had "never felt like that before." He denied having associated chest pain, and was unable to clarify if he had ringing in his ears. He denies having runny nose, nausea, vomiting, diarrhea, fever, chills, or eating less than usual. REVIEW OF SYSTEMS: 12 point review of systems negative except as listed in HPI PAST MEDICAL/ SURGICAL HISTORY: Chronic CAD COPD Depression Nephrolithiasis status post cystoscopy with retrograde pyelogram and basket extraction of stone from the bladder HTN CKD 3 Squamous cell lung cancer History of right pneumothorax requiring placement of right chest tube PVD Status post femoral artery bypass. 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 HOME MEDICATIONS: Please see below. PHYSICAL EXAMINATION: VITAL SIGNS: Please see below. GEN: well-nourished / well developed/ NAD INTEGUMENT: not flushed/ not jaundice HEENT: NCAT / lips acyanotic /mucus membranes moist and pink CVS: RRR/NMRG/ no lower extremity edema LUNGS: lungs are clear to auscultation bilaterally on room air ABDOMEN: Contour (flat) / soft & not tender with palpation MSK/EXTREMITIES: range of motion intact in all 4 extremities NEURO: CN 2-12 are grossly intact / speech is not dysarthric PSYCH: alert and oriented to person place and time LABORATORY DATA: See below. IMAGING: X-ray hip " Impression: Comminuted intertrochanteric fracture of the right proximal femur." X-ray right femur " Impression: Visualized portions of the femur appear intact." X-ray chest " Impression: Stable appearing chronic changes. If the patient remains symptomatic consider chest CT for further investigation." ASSESSMENT: Mr. Lee is a 73-year-old with a past medical history of CAD, COPD, depression, HTN, CKD 3, squamous cell lung cancer, PVD, and prior left femoral neck fracture admitted for treatment of right proximal femur fracture. PLAN: 1. Presyncope Cause unclear The patient reports feeling dizzy, but was unable to give additional details. His troponin and EKG were unrevealing Plan: Admit to medical floor/Telemetry / f/u orthostats 2. Mechanical Fall resulting in possible right femur fracture X-ray report was reviewed Plan: Fall precautions NPO after midnight w IVF for surgery possibly tomorrow / Ortho consult / PT/OT consult / pain control w Ofrimev and Morphine 3. Osteoporosis By definition because of the fragility fracture, he has osteoporosis Plan: will need work-up to r/o secondary causes of Osteoporosis which can be done on an out pt prior to selecting medications 4. Mild COPD exacerbation. Per discussion with the ER, RN, his O2 sats dropped transiently He has expiratory rhonchi. Plan: supplemental O2 / aspiration precautions / f/u VBG, sputum cx / Dunebs Q6H, Albuterol Q1HP, Prednisone + PPI / Levofloxacin 5. Chronic CAD / PVD - Plan: rotuvastatin 6. Depression - Plan: Sertraline 7. Chronic HTN - Plan: Torsemide 8. CKD 3 - Plan: Monitor BMP 9. Squamous cell lung cancer - Plan: Follow up with oncologist as scheduled 10. Preoperative Assessment Revised Cardiac Index to asses risk of MACE from surgery = 1 point = class 1 risk = check pro-BNP if it is <300 no additional perioperative testing will be required - Plan: hold losartan to avoid perioperative hypotension, this medication can be resumed on day 2 after surgery / hold ASA & plavix DVT PROPHYLAXIS: DISPOSITION: possible placement for rehab after more than 2 midnights' stay PFS consult has been placed Vital Signs Vital Signs Date Time Temp Pulse Resp B/P (MAP) Pulse Ox O2 Delivery O2 Flow Rate FiO2 08/23/19 18:48 97 Room Air 08/23/19 18:45 112/57 (75) 08/23/19 18:35 73 08/23/19 17:20 96.9 08/23/19 17:05 19 Laboratory Data Labs 24H Laboratory Tests 2 08/23/19 18:10: Immature Granulocyte % (Auto) 0.7, Neutrophils (%) (Auto) 73.4H, Lymphocytes (%) (Auto) 14.2L, Monocytes (%) (Auto) 8.6H, Eosinophils (%) (Auto) 2.5, Basophils (%) (Auto) 0.6, Neutrophils # (Auto) 7.6, Lymphocytes # (Auto) 1.5, Monocytes # (Auto) 0.9H, Eosinophils # (Auto) 0.3, Basophils # (Auto) 0.1, Nucleated Red Blood Cells % (auto) 0.0, Prothrombin Time 14.3H, Prothromb Time International Ratio 1.14, Anion Gap 6L, Glomerular Filtration Rate 59.4, Calcium Level 8.6L CBC/BMP Laboratory Tests 08/23/19 18:10 Home Medications Scheduled Aspirin (Aspirin EC) 81 Mg Tab, 81 MG PO DAILY Clopidogrel Bisulfate (Clopidogrel) 75 Mg Tab, 75 MG PO DAILY Gabapentin (Gabapentin) 300 Mg Cap, 300 MG PO TID Losartan Potassium (Losartan Potassium) 25 Mg Tab, 25 MG PO DAILY Potassium Citrate (Potassium Citrate ER) 15 Meq Tab, 15 MEQ PO BID Rosuvastatin Calcium (Crestor) 40 Mg Tab, 40 MG PO QHS Sertraline Hcl (Sertraline HCl) 50 Mg Tab, 50 MG PO DAILY Torsemide (Torsemide) 20 Mg Tab, 10 MG PO DAILY TAKE 20MG IF WEIGHT GAIN >4LBS Scheduled PRN Albuterol Sulfate (Albuterol Sulfate) 2.5 Mg/0.5 Ml Neb, 2.5 MG INH QID PRN for SHORTNESS OF BREATH Allergies Coded Allergies: No Known Allergies (Verified , 08/23/19) A-FIB/CHADSVASC A-FIB History Current/History of A-Fib/PAF?: No Current PO Anticoag Therapy: No YVETTE JACKMAN MD Aug 23, 2019 19:14
[2019-08-23] MEDS ORDERED: MAALOX 30 ML SUSP *UDC PO PRN (19:15)
--- NOTE | 2019-08-23 19:18 | ECGEPIP ---
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
[2019-08-23] MEDS ORDERED: IPRATROPIUM 0.5MG/ALBUTEROL 2.5MG INH SOL UD 3ML (DUONEB)(J7620) NEB ONE (19:30)
[2019-08-23] MEDS ORDERED: methylPREDNISolone INJ 125 MG/2 ML VIAL (J2930) IV STA (19:59)
[2019-08-23] MEDS ORDERED: ALBUTEROL SULFATE 2.5 MG/0.5 ML INH NEB SOLN NEB PRN (20:00)
[2019-08-23] MEDS: DOCUSATE SODIUM 100 MG CAP PO SCH (21:00)
[2019-08-23] MEDS: NS 1,000 ML IV SCH (21:13)
[2019-08-23 22:00] VITALS: BP 114/65
[2019-08-23] MEDS: GABAPENTIN 300 MG CAP PO SCH (22:37)
[2019-08-23] MEDS: ROSUVASTATIN 10 MG TAB (CRESTOR) PO SCH (22:37)
[2019-08-23] MEDS: LevoFLOXacin 750 MG TABLET PO SCH (22:41)
[2019-08-23] MEDS: MORPHINE 2 MG/ML 1ML VIAL (J2270) IV PRN (22:42)
[2019-08-23] MEDS: IPRATROPIUM 0.5MG/ALBUTEROL 2.5MG INH SOL UD 3ML (DUONEB)(J7620) NEB SCH (23:53)
[2019-08-24 01:00] VITALS: BP_SYST 102; BP_SYST 111; BP_DIAS 64; BP_DIAS 67
[2019-08-24] MEDS: IPRATROPIUM 0.5MG/ALBUTEROL 2.5MG INH SOL UD 3ML (DUONEB)(J7620) NEB SCH ×4 (03:22→18:11)
[2019-08-24 06:00] VITALS: BP 80/56
[2019-08-24] MEDS ORDERED: NS 500 ML IV ONE (06:00)
[2019-08-24] MEDS ORDERED: ceFAZolin SOD 2 GM in IV 1 EA IV ONE (06:00)
[2019-08-24] MEDS: LevoFLOXacin 750 MG TABLET PO SCH (06:00)
[2019-08-24 06:02] LABS: HEMOGLOBIN 11.5 g/dl (13.5-17.5); MEAN CORPUSCULAR HGB CONC 31.9 g/dl (32.0-36.5); MEAN CORPUSCULAR VOLUME 100.3 fl (80.0-96.0); PLATELET COUNT, AUTOMATED 157 10^3/uL (150-450); RED BLOOD COUNT 3.59 10^6/uL (4.30-6.10)
[2019-08-24 06:14] LABS: INR 1.19; PROTHROMBIN TIME 14.8 SECONDS (11.8-14.0)
[2019-08-24 06:22] LABS: CALCIUM LEVEL 8.4 MG/DL (8.8-10.2); CREATININE FOR GFR 1.74 MG/DL (0.70-1.30); GLOMERULAR FILTRATION RATE 40.9 (>42); POTASSIUM SERUM 4.4 MEQ/L (3.5-5.1)
--- NOTE | 2019-08-24 09:20 | CR ---
DATE OF CONSULTATION: 08/24/2019 CHIEF COMPLAINT: Right hip pain. HISTORY OF PRESENT ILLNESS: This is a 73-year-old male who states he was getting out of his chair to answer the door when he tripped and fell. He denies syncope or loss of consciousness, however, according to the medicine note, it does sound that he had previously admitted to feeling dizzy prior to this fall. He denies any chest pain. He is on home oxygen for chronic obstructive pulmonary disease (COPD) which he mainly uses at night. He can walk short distances with a walker, but also has an electric scooter. He was alone in an apartment. PAST MEDICAL HISTORY: 1. Coronary artery disease. 2. COPD, on home oxygen at night. 3. Depression. 4. Nephrolithiasis status post cystoscopy. 5. Hypertension. 6. Chronic kidney disease Stage III. 7. Squamous cell lung cancer. 8. History of right pneumothorax requiring placement of a right chest tube. 9. Peripheral vascular disease status post femoral artery bypass on the left. PAST SURGICAL HISTORY: 1. Femoral artery bypass on the left. 2. Left hip CRPP. 3. Hernia repair. 4. Cholecystectomy. 5. Appendectomy. SOCIAL HISTORY: He is a former smoker, the patient quit shortly after Shlomo of last year. 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 ALLERGIES: No known drug allergies. HOME MEDICATIONS: - aspirin - Plavix - gabapentin - losartan - potassium - Crestor - Sertraline - torsemide PHYSICAL EXAMINATION: General: Well appearing, alert and oriented, in no acute distress. Cardiovascular: Regular rate and rhythm. Lungs: Clear to auscultation bilaterally. Abdomen: Soft. Nontender. Musculoskeletal: The patient has tenderness about the right hip. There is some ecchymosis, but skin is intact. He has intact tibialis anterior, gastrocnemius, EHL and FHL. Normal sensation to light touch in the superficial peroneal, deep peroneal and tibialis distribution. Foot is warm and well perfused. IMAGING: Radiographs of the right hip and femur are reviewed. There is an intertrochanteric fracture of right hip. IMPRESSION: Right intertrochanteric hip fracture. PLAN: Plan will be for a cephalomedullary nail once patient is medically clear. It is unclear when he last took his Plavix, so timing of surgery will be dependent on this. If he has been off his Plavix and is medically clear, would try to fix him tomorrow morning. We will speak with the medicine team for further recommendations. MOODY
--- NOTE | 2019-08-24 11:45 | IPNPDOC ---
Subjective Date Seen The patient was seen on 08/24/19. Subjective Chief Complaint/HPI Patient is comfortable offers no new complaints, in no apparent distress General: Denies: ROS Unobtainable, Chills, Night Sweats, Fatigue, Malaise, Normal Appetite, Other Symptoms Constitutional: Denies: Chills, Fever, Malaise, Night Sweats, Weakness, Fatigue, Weight Loss, Lethargy, Other Pulmonary: Denies: Dyspnea, Cough, Pleuritic Chest Pain, Other Symptoms Cardiovascular: Denies: Chest Pain, Palpitations, Orthopnea, Paroxysmal Noc. Dyspnea, Edema, Lt Headedness, Other Symptoms Gastrointestinal: Denies: Nausea, Vomiting, Abdominal Pain, Diarrhea, Constipation, Melena, Hematochezia, Other Symptoms Genitourinary: Denies: Dysuria, Frequency, Incontinence, Hematuria, Retention, Other Symptoms Musculoskeletal: Denies: Neck Pain, Back Pain, Shoulder Pain, Arm Pain, Hand Pain, Leg Pain, Foot Pain, Joint Pain, Muscle Pain, Spasms, Other Symptoms Neurological: Denies: Weakness, Numbness, Incoordination, Change in speech, Confusion, Seizures, Other Symptoms Objective Physical Examination General Exam: Positive: Alert, Cooperative Eye Exam: Positive: PERRLA, Conjunctiva & lids normal ENT Exam: Positive: Atraumatic, Mucous membr. moist/pink Neck Exam: Positive: Supple Chest Exam: Positive: Clear to auscultation, Normal air movement Heart Exam: Positive: Rate Normal, Normal S1, Normal S2 Abdomen Exam: Positive: Normal bowel sounds, Soft Extremity Exam: Positive: Other (tenderness right hip on palpation) Skin Exam: Positive: Nl turgor and temperature Neuro Exam: Positive: Other (. No focal motor or sensory deficit) Assessment /Plan Problems (1) Hip fracture, right Status: Acute Problem Text: Mechanical Fall resulting in possible right femur fracture X-ray report was reviewed fall precautions NPO after midnight w IVF Patient is scheduled for surgical procedure today Aspirin and Plavix on hold will be resumed once cleared by surgery (2) COPD with acute exacerbation Status: Acute Problem Text: Patient has been started on nebulizer, Levaquin and prednisone Continue oxygen support as needed We'll clinically monitor patient and change meds accordingly (3) Fall Status: Acute Problem Text: Mechanical fall , No further workup needed (4) HTN (hypertension) Status: Chronic Problem Text: Continue all present home meds (5) Depression Status: Chronic Problem Text: Continue all home meds (6) CAD (coronary artery disease) Status: Chronic Problem Text: continue present meds Plan/VTE VTE Prophylaxis Ordered?: Yes VS, I&O, 24H, Fishbone Vital Signs/I&O Vital Signs Date Time Temp Pulse Resp B/P (MAP) Pulse Ox O2 Delivery O2 Flow Rate FiO2 08/24/19 06:00 98.2 77 19 80/56 (64) 92 Room Air 08/24/19 01:13 2.0 I&O- Last 24 Hours up to 6 AM 08/24/19 06:00 Intake Total 860 ml Output Total 250 ml Balance 610 ml Laboratory Data 24H LABS Laboratory Tests 2 08/23/19 18:10: Immature Granulocyte % (Auto) 0.7, Neutrophils (%) (Auto) 73.4H, Lymphocytes (%) (Auto) 14.2L, Monocytes (%) (Auto) 8.6H, Eosinophils (%) (Auto) 2.5, Basophils (%) (Auto) 0.6, Neutrophils # (Auto) 7.6, Lymphocytes # (Auto) 1.5, Monocytes # (Auto) 0.9H, Eosinophils # (Auto) 0.3, Basophils # (Auto) 0.1, Nucleated Red Blood Cells % (auto) 0.0, Prothrombin Time 14.3H, Prothromb Time International R atio 1.14, Anion Gap 6L, Glomerular Filtration Rate 59.4, Calcium Level 8.6L, DA-Lxd-M-Type Natriuretic Peptide 189 08/23/19 23:26: Urine Color YELLOW, Urine Appearance CLEAR, Urine pH 5.0, Urine Specific [place] 1.015, Urine Protein NEGATIVE, Urine Glucose (UA) NEGATIVE, Urine Ketones NEGATIVE, Urine Blood NEGATIVE, Urine Nitrite NEGATIVE, Urine Bilirubin NEGATIVE, Urine Urobilinogen 0.2, Urine Leukocyte Esterase NEGATIVE, Urine WBC (Auto) 1, Urine RBC (Auto) 3, Urine Hyaline Casts (Auto) 12, Urine Bacteria (Auto) NEGATIVE, Urine Squamous Epithelial Cells 0, Urine Mucus (Auto) SMALL, Urine Sperm (Auto) 08/24/19 05:28: Nucleated Red Blood Cells % (auto) 0.0, Prothrombin Time 14.8H, Prothromb Time International Ratio 1.19, Anion Gap 9, Glomerular Filtration Rate 40.9L, Calcium Level 8.4L CBC/BMP Laboratory Tests 08/23/19 18:10 08/24/19 05:28 Microbiology Microbiology 08/24/19 Gram Stain - Final, Resulted 08/24/19 Sputum Culture, Resulted Pending BRISSA SINGH MD Aug 24, 2019 11:45
[2019-08-24] MEDS: DOCUSATE SODIUM 100 MG CAP PO SCH ×2 (12:04→20:05)
[2019-08-24] MEDS: TORSEMIDE 10 MG TABLET PO SCH (12:04)
[2019-08-24] MEDS: SERTRALINE HCL 50 MG TAB PO SCH (12:04)
[2019-08-24] MEDS: PANTOPRAZOLE 40MG TAB (PROTONIX) PO SCH (12:04)
[2019-08-24] MEDS: GABAPENTIN 300 MG CAP PO SCH ×3 (12:04→20:05)
[2019-08-24] MEDS: predniSONE 20 MG TAB PO SCH (12:04)
[2019-08-24] MEDS: ACETAMINOPHEN TAB 650MG DOSE (2X325MG) PO PRN ×2 (12:05→20:06)
[2019-08-24] MEDS: NS 1,000 ML IV SCH (12:05)
[2019-08-24 14:00] VITALS: BP 94/58
[2019-08-24] MEDS: ROSUVASTATIN 10 MG TAB (CRESTOR) PO SCH (20:06)
[2019-08-24 22:00] VITALS: BP 96/53
[2019-08-25] MEDS: IPRATROPIUM 0.5MG/ALBUTEROL 2.5MG INH SOL UD 3ML (DUONEB)(J7620) NEB SCH ×4 (01:45→18:11)
[2019-08-25] MEDS: NS 1,000 ML IV SCH (05:06)
[2019-08-25] MEDS: LevoFLOXacin 750 MG TABLET PO SCH (05:07)
[2019-08-25] MEDS: MORPHINE 2 MG/ML 1ML VIAL (J2270) IV PRN (05:24)
[2019-08-25 06:00] VITALS: BP 94/56
[2019-08-25 06:41] LABS: INR 1.27; PROTHROMBIN TIME 15.6 SECONDS (11.8-14.0)
[2019-08-25 09:05] VITALS: BP 95/55
[2019-08-25 09:55] VITALS: BP 95/55
[2019-08-25] MEDS: GABAPENTIN 300 MG CAP PO SCH ×3 (10:05→20:31)
[2019-08-25] MEDS: PANTOPRAZOLE 40MG TAB (PROTONIX) PO SCH (10:05)
[2019-08-25] MEDS: predniSONE 20 MG TAB PO SCH (10:05)
[2019-08-25] MEDS: SERTRALINE HCL 50 MG TAB PO SCH (10:05)
[2019-08-25] MEDS: DOCUSATE SODIUM 100 MG CAP PO SCH ×2 (10:05→20:31)
--- NOTE | 2019-08-25 11:32 | IPNPDOC ---
Subjective Date Seen The patient was seen on 08/25/19. Subjective Chief Complaint/HPI Patient is comfortable, no distress. He is not scheduled for surgery to tomorrow secondary to use of Plavix General: Denies: ROS Unobtainable, Chills, Night Sweats, Fatigue, Malaise, Normal Appetite, Other Symptoms Constitutional: Denies: Chills, Fever, Malaise, Night Sweats, Weakness, Fatigue, Weight Loss, Lethargy, Other Pulmonary: Denies: Dyspnea, Cough, Pleuritic Chest Pain, Other Symptoms Cardiovascular: Denies: Chest Pain, Palpitations, Orthopnea, Paroxysmal Noc. Dyspnea, Edema, Lt Headedness, Other Symptoms Gastrointestinal: Denies: Nausea, Vomiting, Abdominal Pain, Diarrhea, Constipation, Melena, Hematochezia, Other Symptoms Genitourinary: Denies: Dysuria, Frequency, Incontinence, Hematuria, Retention, Other Symptoms Musculoskeletal: Denies: Neck Pain, Back Pain, Shoulder Pain, Arm Pain, Hand Pain, Leg Pain, Foot Pain, Joint Pain, Muscle Pain, Spasms, Other Symptoms Neurological: Denies: Weakness, Numbness, Incoordination, Change in speech, Confusion, Seizures, Other Symptoms Objective Physical Examination ENT Exam: Positive: Atraumatic, Mucous membr. moist/pink Neck Exam: Positive: Supple Chest Exam: Positive: Clear to auscultation, Normal air movement Heart Exam: Positive: Rate Normal, Normal S1, Normal S2 Abdomen Exam: Positive: Normal bowel sounds, Soft Extremity Exam: Positive: Other (tenderness right hip on palpation) Skin Exam: Positive: Nl turgor and temperature Neuro Exam: Positive: Other (. No focal motor or sensory deficit) Assessment /Plan Problems (1) Hip fracture, right Status: Acute Problem Text: Mechanical Fall resulting in possible right femur fracture X-ray report was reviewed fall precautions, nothing by mouth after midnight today Continue IV fluids but can resume diet until midnight today Patient is scheduled for surgery tomorrow secondary to use of Plavix previously Aspirin and Plavix on hold will be resumed once cleared by surgery (2) COPD with acute exacerbation Status: Acute Problem Text: Patient has been started on nebulizer, Levaquin and prednisone Continue oxygen support as needed We'll clinically monitor patient and change meds accordingly (3) Fall Status: Acute Problem Text: Mechanical fall , No further workup needed (4) HTN (hypertension) Status: Chronic Problem Text: Continue all present home meds (5) Depression Status: Chronic Problem Text: Continue all home meds (6) CAD (coronary artery disease) Status: Chronic Problem Text: continue present meds Plan/VTE VTE Prophylaxis Ordered?: Yes VS, I&O, 24H, Fishbone Vital Signs/I&O Vital Signs Date Time Temp Pulse Resp B/P (MAP) Pulse Ox O2 Delivery O2 Flow Rate FiO2 08/25/19 10:28 2.0 08/25/19 09:55 97.6 64 18 95/55 97 Nasal Cannula I&O- Last 24 Hours up to 6 AM 08/25/19 06:00 Intake Total 2130 ml Output Total 0 ml Balance 2130 ml Laboratory Data 24H LABS Laboratory Tests 2 08/25/19 05:20: Prothrombin Time 15.6H, Prothromb Time International Ratio 1.27 Microbiology Microbiology 08/24/19 Respiratory Virus Panel (PCR) ([facility]) - Final, Complete 08/24/19 Gram Stain - Final, Resulted 08/24/19 Sputum Culture, Resulted Pending BRISSA SINGH MD Aug 25, 2019 11:32
[2019-08-25 13:19] VITALS: BP 94/53
[2019-08-25] MEDS: TORSEMIDE 10 MG TABLET PO SCH (13:46)
[2019-08-25] MEDS: ACETAMINOPHEN TAB 650MG DOSE (2X325MG) PO PRN ×2 (16:24→20:31)
[2019-08-25] MEDS: ROSUVASTATIN 10 MG TAB (CRESTOR) PO SCH (20:30)
[2019-08-25 22:00] VITALS: BP 100/52
[2019-08-26] VITALS (9 sets, daily range): BP systolic 62–119; BP diastolic 53–67; O2SAT 98
[2019-08-26] MEDS: IPRATROPIUM 0.5MG/ALBUTEROL 2.5MG INH SOL UD 3ML (DUONEB)(J7620) NEB SCH ×4 (02:59→19:32)
[2019-08-26] MEDS: LevoFLOXacin 750 MG TABLET PO SCH (05:08)
[2019-08-26] MEDS: ACETAMINOPHEN TAB 650MG DOSE (2X325MG) PO PRN ×2 (05:09→17:17)
[2019-08-26 06:47] LABS: BASO % 0.1 % (0.0-1.0); EOS % 0.3 % (0.0-3.0); HEMATOCRIT 30.4 % (42.0-52.0); HEMOGLOBIN 9.5 g/dl (13.5-17.5); LYMPH # 0.7 10^3/uL (1.5-5.0); MEAN CORPUSCULAR HEMOGLOBIN 31.7 pg (27.0-33.0); MEAN CORPUSCULAR HGB CONC 31.3 g/dl (32.0-36.5); MEAN CORPUSCULAR VOLUME 101.3 fl (80.0-96.0); MONO # 0.9 10^3/uL (0.0-0.8); NEUTROPHILS # 9.2 10^3/uL (1.5-8.5); NEUTROPHILS % 83.7 % (36.0-66.0); PLATELET COUNT, AUTOMATED 130 10^3/uL (150-450)
[2019-08-26 06:57] LABS: INR 1.18; PROTHROMBIN TIME 14.7 SECONDS (11.8-14.0)
[2019-08-26 07:06] LABS: ALBUMIN 2.4 GM/DL (3.2-5.2); ALT/SGPT 9 U/L (12-78); BILIRUBIN,TOTAL 0.6 MG/DL (0.2-1.0); BLOOD UREA NITROGEN 26 MG/DL (7-18); CALCIUM LEVEL 8.4 MG/DL (8.8-10.2); CARBON DIOXIDE LEVEL 25 MEQ/L (21-32); CHLORIDE LEVEL 107 MEQ/L (98-107); CREATININE FOR GFR 1.14 MG/DL (0.70-1.30); GLOMERULAR FILTRATION RATE > 60.0 (>42); GLUCOSE, FASTING 111 MG/DL (70-100); POTASSIUM SERUM 4.3 MEQ/L (3.5-5.1); SODIUM LEVEL 138 MEQ/L (136-145); TOTAL PROTEIN 5.6 GM/DL (6.4-8.2)
[2019-08-26] MEDS: SERTRALINE HCL 50 MG TAB PO SCH (08:36)
[2019-08-26] MEDS: GABAPENTIN 300 MG CAP PO SCH ×3 (08:36→20:15)
[2019-08-26] MEDS: TORSEMIDE 10 MG TABLET PO SCH (08:36)
[2019-08-26] MEDS: predniSONE 20 MG TAB PO SCH (08:36)
[2019-08-26] MEDS: PANTOPRAZOLE 40MG TAB (PROTONIX) PO SCH (08:36)
[2019-08-26] MEDS: DOCUSATE SODIUM 100 MG CAP PO SCH ×2 (08:37→20:15)
--- NOTE | 2019-08-26 14:24 | IPNPDOC ---
Subjective Date Seen The patient was seen on 08/26/19. Subjective Chief Complaint/HPI Patient comfortable in no distress is scheduled for surgery on Saturday Constitutional: Denies: Chills, Fever, Malaise, Night Sweats, Weakness, Fatigue, Weight Loss, Lethargy, Other Eyes: Denies: Pain, Vision change, Conjunctivae inflammation, Eyelid inflammation, Redness, Other Pulmonary: Denies: Dyspnea, Cough, Pleuritic Chest Pain, Other Symptoms Cardiovascular: Denies: Chest Pain, Palpitations, Orthopnea, Paroxysmal Noc. Dyspnea, Edema, Lt Headedness, Other Symptoms Gastrointestinal: Denies: Nausea, Vomiting, Abdominal Pain, Diarrhea, Constipation, Melena, Hematochezia, Other Symptoms Musculoskeletal: Denies: Neck Pain, Back Pain, Shoulder Pain, Arm Pain, Hand Pain, Leg Pain, Foot Pain, Joint Pain, Muscle Pain, Spasms, Other Symptoms Neurological: Denies: Weakness, Numbness, Incoordination, Change in speech, Confusion, Seizures, Other Symptoms Objective Physical Examination ENT Exam: Positive: Atraumatic, Mucous membr. moist/pink Neck Exam: Positive: Supple Chest Exam: Positive: Clear to auscultation, Normal air movement Heart Exam: Positive: Rate Normal, Normal S1, Normal S2 Abdomen Exam: Positive: Normal bowel sounds, Soft Extremity Exam: Positive: Other (tenderness right hip on palpation) Skin Exam: Positive: Nl turgor and temperature Neuro Exam: Positive: Other (. No focal motor or sensory deficit) Assessment /Plan Problems (1) Hip fracture, right Status: Acute Problem Text: Mechanical Fall resulting in possible right femur fracture X-ray report was reviewed Scheduled for surgery on Saturday nothing by mouth from midnight from night Aspirin and Plavix on hold will be resumed once cleared by surgery (2) COPD with acute exacerbation Status: Acute Problem Text: Patient has been started on nebulizer, Levaquin and prednisone Continue oxygen support as needed We'll clinically monitor patient and change meds accordingly (3) Fall Status: Acute Problem Text: Mechanical fall , No further workup needed (4) HTN (hypertension) Status: Chronic Problem Text: Continue all present home meds (5) Depression Status: Chronic Problem Text: Continue all home meds (6) CAD (coronary artery disease) Status: Chronic Problem Text: continue present meds Plan/VTE VTE Prophylaxis Ordered?: Yes VS, I&O, 24H, Fishbone Vital Signs/I&O Vital Signs Date Time Temp Pulse Resp B/P (MAP) Pulse Ox O2 Delivery O2 Flow Rate FiO2 08/26/19 13:49 98.2 86 16 112/58 90 Nasal Cannula 2.0 I&O- Last 24 Hours up to 6 AM 08/26/19 06:00 Intake Total 2280 ml Output Total 2600 ml Balance -320 ml Laboratory Data 24H LABS Laboratory Tests 2 08/26/19 06:05: Immature Granulocyte % (Auto) 1.9, Neutrophils (%) (Auto) 83.7H, Lymphocytes (%) (Auto) 6.0L, Monocytes (%) (Auto) 8.0H, Eosinophils (%) (Auto) 0.3, Basophils (%) (Auto) 0.1, Neutrophils # (Auto) 9.2H, Lymphocytes # (Auto) 0.7L, Monocytes # (Auto) 0.9H, Eosinophils # (Auto) 0.0, Basophils # (Auto) 0.0, Nucleated Red Blood Cells % (auto) 0.0, Prothrombin Time 14.7H, Prothromb Time International Ratio 1.18, Anion Gap 6L, Glomerular Filtration Rate > 60.0, Calcium Level 8.4L, Total Bilirubin 0.6, Aspartate Amino Transf (AST/SGOT) 15, Alanine Aminotransferase (ALT/SGPT) 9L, Alkaline Phosphatase 78, Total Protein 5.6L, Albumin 2.4L, Albumin/Globulin Ratio 0.75L CBC/BMP Laboratory Tests 08/26/19 06:05 Microbiology Microbiology 08/24/19 Respiratory Virus Panel (PCR) ([facility]) - Final, Complete 08/24/19 Gram Stain - Final, Complete 08/24/19 Sputum Culture - Final, Complete BRISSA SINGH MD Aug 26, 2019 14:24
[2019-08-26] MEDS: MOM 30ML SUSPENSION UDC PO PRN (17:17)
--- NOTE | 2019-08-26 19:08 | REP ---
CHEST, PORTABLE: AP portable view of the chest is performed and compared to multiple prior exams, most recently. Bilateral fibrotic changes appear stable. There is mild bibasilar atelectatic changes. No definite acute infiltrate is seen. Cardiac silhouette is again prominent and unchanged. There is some tortuosity of the thoracic aorta. The mediastinal silhouette is unchanged. Metallic clip is seen in the right hilar region. IMPRESSION: Stable chronic changes. No definite superimposed acute infiltrate. Electronically Signed by Bonifacio Braswell MD 08/26/2019 07:33 P
[2019-08-26] MEDS: ROSUVASTATIN 10 MG TAB (CRESTOR) PO SCH (20:14)
[2019-08-27] MEDS: IPRATROPIUM 0.5MG/ALBUTEROL 2.5MG INH SOL UD 3ML (DUONEB)(J7620) NEB SCH ×5 (00:53→20:00)
[2019-08-27] MEDS: ACETAMINOPHEN TAB 650MG DOSE (2X325MG) PO PRN ×2 (06:15→21:31)
[2019-08-27] MEDS: LevoFLOXacin 750 MG TABLET PO SCH (06:15)
[2019-08-27 06:21] VITALS: BP 127/66
[2019-08-27 07:21] LABS: INR 1.16; PROTHROMBIN TIME 14.5 SECONDS (11.8-14.0)
[2019-08-27 08:30] VITALS: BP 132/78
[2019-08-27] MEDS: FLUTICASONE HFA 110 MCG 12 GM INHALER (FLOVENT) INH SCH ×2 (09:00→21:00)
[2019-08-27] MEDS: MOM 30ML SUSPENSION UDC PO PRN (09:47)
[2019-08-27] MEDS: TORSEMIDE 10 MG TABLET PO SCH (09:48)
[2019-08-27] MEDS: PANTOPRAZOLE 40MG TAB (PROTONIX) PO SCH (09:49)
[2019-08-27] MEDS: DOCUSATE SODIUM 100 MG CAP PO SCH ×2 (09:49→21:00)
[2019-08-27] MEDS: GABAPENTIN 300 MG CAP PO SCH ×3 (09:49→21:31)
[2019-08-27] MEDS: SERTRALINE HCL 50 MG TAB PO SCH (09:49)
[2019-08-27] MEDS: predniSONE 20 MG TAB PO SCH (09:49)
--- NOTE | 2019-08-27 12:29 | IPNPDOC ---
Subjective Date Seen The patient was seen on 08/27/19. Subjective Chief Complaint/HPI As per nursing, patient had some rhonchi is on a examination. Patient denies any shortness of breath, chest pain, nausea, vomiting, etc. General: Denies: ROS Unobtainable, Chills, Night Sweats, Fatigue, Malaise, Normal Appetite, Other Symptoms ENT: Denies: Head Aches, Ear Pain, Dysphagia, Sinus Congestion, Post Nasal Drip, Sore Throat, Epistaxis, Other Symptoms Skin: Denies: Rash, Lesions, Jaundice, Bruising, Itching, Dry, Breakdown, Nail Changes, Other Pulmonary: Reports: Other Symptoms (bilateral rhonchorous) Cardiovascular: Denies: Chest Pain, Palpitations, Orthopnea, Paroxysmal Noc. Dyspnea, Edema, Lt Headedness, Other Symptoms Gastrointestinal: Denies: Nausea, Vomiting, Abdominal Pain, Diarrhea, Constipation, Melena, Hematochezia, Other Symptoms Musculoskeletal: Denies: Neck Pain, Back Pain, Shoulder Pain, Arm Pain, Hand Pain, Leg Pain, Foot Pain, Joint Pain, Muscle Pain, Spasms, Other Symptoms Neurological: Denies: Weakness, Numbness, Incoordination, Change in speech, Confusion, Seizures, Other Symptoms Objective Physical Examination ENT Exam: Positive: Atraumatic, Mucous membr. moist/pink Neck Exam: Positive: Supple Chest Exam: Positive: Clear to auscultation, Normal air movement Heart Exam: Positive: Rate Normal, Normal S1, Normal S2 Abdomen Exam: Positive: Soft, Other (audible. Scattered rhonchi bilaterally on deep inspiration but no wheezing, no rales) Extremity Exam: Positive: Other (tenderness right hip on palpation) Skin Exam: Positive: Nl turgor and temperature Neuro Exam: Positive: Strength at 5/5 X4 ext, Cranial Nerves 3-12 NL, Other (. No focal motor or sensory deficit) Assessment /Plan Problems (1) Hip fracture, right Status: Acute Problem Text: Mechanical Fall resulting in possible right femur fracture Aspirin and Plavix on hold will be resumed once cleared by surgery Patient is scheduled for surgery tomorrow morning Is clinically stable for the procedure the present time (2) COPD with acute exacerbation Status: Acute Problem Text: Patient has been started on nebulizer, Levaquin and prednisone Oxygen support as needed Also DuoNeb was added every 6 hours as scheduled Add fluticasone 110 g 2 inhalation twice a day His respiratory status is stable, will continue monitoring closely Rechecks x-ray was reviewed, no infiltrate or any other pathology noted (3) Fall Status: Acute Problem Text: Mechanical fall , No further workup needed (4) HTN (hypertension) Status: Chronic Problem Text: Continue all present home meds (5) Depression Status: Chronic Problem Text: Continue all home meds (6) CAD (coronary artery disease) Status: Chronic Problem Text: continue present meds Plan/VTE VTE Prophylaxis Ordered?: Yes VS, I&O, 24H, Fishbone Vital Signs/I&O Vital Signs Date Time Temp Pulse Resp B/P (MAP) Pulse Ox O2 Delivery O2 Flow Rate FiO2 08/27/19 10:00 2.0 08/27/19 08:30 97.8 60 14 132/78 (96) 94 Nasal Cannula 08/26/19 19:32 28 I&O- Last 24 Hours up to 6 AM 08/27/19 06:00 Intake Total 940 ml Output Total 1800 ml Balance -860 ml Laboratory Data 24H LABS Laboratory Tests 2 08/27/19 06:58: Prothrombin Time 14.5H, Prothromb Time International Ratio 1.16 Microbiology Microbiology 08/24/19 Respiratory Virus Panel (PCR) ([facility]) - Final, Complete 08/24/19 Gram Stain - Final, Complete 08/24/19 Sputum Culture - Final, Complete BRISSA SINGH MD Aug 27, 2019 12:29
[2019-08-27 14:00] VITALS: BP 128/65
[2019-08-27 21:06] VITALS: BP 108/71
[2019-08-27] MEDS: ROSUVASTATIN 10 MG TAB (CRESTOR) PO SCH (21:31)
[2019-08-27] MEDS: QUEtiapine FUMARATE 25 MG TAB PO SCH (23:32)
[2019-08-28] VITALS (8 sets, daily range): BP systolic 109–131; BP diastolic 56–91
[2019-08-28] MEDS: ACETAMINOPHEN TAB 650MG DOSE (2X325MG) PO PRN ×2 (01:30→12:27)
[2019-08-28] MEDS: HALOPERIDOL 5 MG/ML VIAL (J1630) IM PRN (02:21)
[2019-08-28] MEDS: IPRATROPIUM 0.5MG/ALBUTEROL 2.5MG INH SOL UD 3ML (DUONEB)(J7620) NEB SCH ×4 (02:56→19:45)
[2019-08-28] MEDS: MORPHINE 2 MG/ML 1ML VIAL (J2270) IV PRN ×2 (03:24→14:49)
[2019-08-28] MEDS ORDERED: ceFAZolin SOD 2 GM in IV 1 EA IV ONE (06:00)
[2019-08-28 07:22] LABS: BASO % 0.2 % (0.0-1.0); EOS # 0.1 10^3/uL (0.0-0.5); EOS % 0.6 % (0.0-3.0); HEMOGLOBIN 10.2 g/dl (13.5-17.5); LYMPH # 0.9 10^3/uL (1.5-5.0); LYMPH % 8.2 % (24.0-44.0); MEAN CORPUSCULAR HEMOGLOBIN 32.6 pg (27.0-33.0); MEAN CORPUSCULAR HGB CONC 32.9 g/dl (32.0-36.5); MONO % 9.4 % (0.0-5.0); NEUTROPHILS # 8.5 10^3/uL (1.5-8.5); NEUTROPHILS % 79.7 % (36.0-66.0); PLATELET COUNT, AUTOMATED 160 10^3/uL (150-450); RED BLOOD COUNT 3.13 10^6/uL (4.30-6.10); WHITE BLOOD COUNT 10.7 10^3/uL (4.0-10.0)
[2019-08-28 07:31] LABS: INR 1.22; PROTHROMBIN TIME 15.1 SECONDS (11.8-14.0)
[2019-08-28] MEDS: FLUTICASONE HFA 110 MCG 12 GM INHALER (FLOVENT) INH SCH ×2 (07:35→19:45)
[2019-08-28 07:54] LABS: ALBUMIN 2.5 GM/DL (3.2-5.2); ALT/SGPT 67 U/L (12-78); BILIRUBIN,TOTAL 0.7 MG/DL (0.2-1.0); BLOOD UREA NITROGEN 28 MG/DL (7-18); CALCIUM LEVEL 8.5 MG/DL (8.8-10.2); CARBON DIOXIDE LEVEL 28 MEQ/L (21-32); CHLORIDE LEVEL 106 MEQ/L (98-107); CREATININE FOR GFR 1.21 MG/DL (0.70-1.30); GLOMERULAR FILTRATION RATE > 60.0 (>42); GLUCOSE, FASTING 100 MG/DL (70-100); POTASSIUM SERUM 4.1 MEQ/L (3.5-5.1); SODIUM LEVEL 140 MEQ/L (136-145)
[2019-08-28] MEDS: predniSONE 20 MG TAB PO SCH (08:06)
[2019-08-28] MEDS: GABAPENTIN 300 MG CAP PO SCH ×3 (08:06→21:00)
[2019-08-28] MEDS: TORSEMIDE 10 MG TABLET PO SCH (08:06)
[2019-08-28] MEDS: DOCUSATE SODIUM 100 MG CAP PO SCH ×2 (08:06→21:00)
[2019-08-28] MEDS: PANTOPRAZOLE 40MG TAB (PROTONIX) PO SCH (08:07)
[2019-08-28] MEDS: SERTRALINE HCL 50 MG TAB PO SCH (08:07)
[2019-08-28] MEDS: LevoFLOXacin IV 750 MG in IV 1 EA IV SCH (09:21)
[2019-08-28] MEDS ORDERED: ONDANSETRON 4MG/2ML VIAL (J2405) As Ordered ONE ×2 (09:42→16:46)
[2019-08-28] MEDS ORDERED: ROCURONIUM BROMIDE 50 MG/5 ML VIAL As Ordered ONE ×2 (09:42→16:45)
[2019-08-28] MEDS ORDERED: LIDOCAINE 2% INJ 100 MG/5 ML SDV (FOR ANES.) As Ordered ONE ×2 (09:42→16:45)
[2019-08-28] MEDS ORDERED: dexameTHASONE 4 MG/ML 1ML VIAL (J1100) As Ordered ONE ×3 (09:42→17:27)
[2019-08-28] MEDS ORDERED: propofoL 200 MG/20 ML VIAL As Ordered ONE ×2 (09:42→16:45)
[2019-08-28] MEDS ORDERED: KETOROLAC 60 MG/2 ML VIAL (J1885) As Ordered ONE (10:12)
[2019-08-28] MEDS ORDERED: fentaNYL 250 MCG/5 ML INJECTION (J3010) As Ordered ONE ×2 (10:55→16:46)
[2019-08-28] MEDS ORDERED: BUPIVACAINE HCL 0.25% 30 ML VIAL As Ordered ONE (11:05)
--- NOTE | 2019-08-28 11:28 | IPNPDOC ---
Subjective Date Seen The patient was seen on 08/28/19. Subjective Chief Complaint/HPI Patient cuts slightly confused and sundowning last night but he is awake, alert, orientedX3 this morning and his wheezing also has completely resolved. General: Denies: ROS Unobtainable, Chills, Night Sweats, Fatigue, Malaise, Normal Appetite, Other Symptoms Constitutional: Denies: Chills, Fever, Malaise, Night Sweats, Weakness, Fatigue, Weight Loss, Lethargy, Other Skin: Denies: Rash, Lesions, Jaundice, Bruising, Itching, Dry, Breakdown, Nail Changes, Other Pulmonary: Denies: Dyspnea, Cough, Pleuritic Chest Pain, Other Symptoms Cardiovascular: Denies: Chest Pain, Palpitations, Orthopnea, Paroxysmal Noc. Dyspnea, Edema, Lt Headedness, Other Symptoms Hematologic: Denies: Bruising, Bleeding Excessively, Petecchia, Purpura, Enlarged Lymph Nodes, Other Hematologic Endocrine: Denies: Polydipsia, Polyphagia, Polyuria, Heat Intolerance, Cold Intolerance, Other Endocrine Sx Musculoskeletal: Denies: Neck Pain, Back Pain, Shoulder Pain, Arm Pain, Hand Pain, Leg Pain, Foot Pain, Joint Pain, Muscle Pain, Spasms, Other Symptoms Neurological: Denies: Weakness, Numbness, Incoordination, Change in speech, Confusion, Seizures, Other Symptoms Objective Physical Examination General Exam: Positive: Alert, Cooperative ENT Exam: Positive: Atraumatic, Mucous membr. moist/pink Neck Exam: Positive: Supple Chest Exam: Positive: Clear to auscultation, Other (. No more audible wheezing) Heart Exam: Positive: Rate Normal, Normal S1, Normal S2 Abdomen Exam: Positive: Soft, Other (audible. Scattered rhonchi bilaterally on deep inspiration but no wheezing, no rales) Extremity Exam: Positive: Other (tenderness right hip on palpation) Skin Exam: Positive: Nl turgor and temperature Assessment /Plan Problems (1) Hip fracture, right Status: Acute Problem Text: Mechanical Fall resulting in possible right femur fracture Aspirin and Plavix on hold will be resumed once cleared by surgery Discussed with orthopedic surgery. Patient is scheduled for surgery this afternoon Patient is medically stable and cleared for the procedure (2) COPD with acute exacerbation Status: Acute Problem Text: Patient has been started on nebulizer, Levaquin and prednisone Oxygen support as needed Also DuoNeb was added every 6 hours as scheduled Add fluticasone 110 g 2 inhalation twice a day Patient responded very well to the above therapy. His lungs are clear on auscultation. No more wheezing is audible Will continue the present medications (3) Fall Status: Acute Problem Text: Mechanical fall , No further workup needed (4) HTN (hypertension) Status: Chronic Problem Text: Continue all present home meds (5) Depression Status: Chronic Problem Text: Continue all home meds (6) CAD (coronary artery disease) Status: Chronic Problem Text: continue present meds Plan/VTE VTE Prophylaxis Ordered?: Yes VS, I&O, 24H, Fishbone Vital Signs/I&O Vital Signs Date Time Temp Pulse Resp B/P (MAP) Pulse Ox O2 Delivery O2 Flow Rate FiO2 08/28/19 07:30 2.0 08/28/19 06:40 97.7 74 18 111/56 (74) 93 Nasal Cannula 08/26/19 19:32 28 I&O- Last 24 Hours up to 6 AM 08/28/19 06:00 Intake Total 570 ml Output Total 1175 ml Balance -605 ml Laboratory Data 24H LABS Laboratory Tests 2 08/28/19 06:38: Immature Granulocyte % (Auto) 1.9, Neutrophils (%) (Auto) 79.7H, Lymphocytes (%) (Auto) 8.2L, Monocytes (%) (Auto) 9.4H, Eosinophils (%) (Auto) 0.6, Basophils (%) (Auto) 0.2, Neutrophils # (Auto) 8.5, Lymphocytes # (Auto) 0.9L, Monocytes # (Auto) 1.0H, Eosinophils # (Auto) 0.1, Basophils # (Auto) 0.0, Nucleated Red Blood Cells % (auto) 0.0, Prothrombin Time 15.1H, Prothromb Time International Ratio 1.22, Anion Gap 6L, Glomerular Filtration Rate > 60.0, Calcium Level 8.5L, Total Bilirubin 0.7, Aspartate Amino Transf (AST/SGOT) 91H, Alanine Aminotransferase (ALT/SGPT) 67, Alkaline Phosphatase 91, Total Protein 6.0L, Albumin 2.5L, Albumin/Globulin Ratio 0.71L CBC/BMP Laboratory Tests 08/28/19 06:38 Microbiology Microbiology 08/24/19 Respiratory Virus Panel (PCR) ([facility]) - Final, Complete 2/10/20 Gram Stain - Final, Complete 08/24/19 Sputum Culture - Final, Complete BRISSA SINGH MD Aug 28, 2019 11:28
[2019-08-28] MEDS ORDERED: BUPIVACAINE/EPIN 0.25% 30 ML VIAL As Ordered ONE (17:00)
[2019-08-28] MEDS ORDERED: ALBUTEROL SULFATE 2.5 MG/0.5 ML INH NEB SOLN As Ordered ONE (17:01)
[2019-08-28] MEDS ORDERED: ceFAZolin 2 GM/D5W 50 ML IV BAG (J0690 PER 500MG) As Ordered ONE (17:42)
[2019-08-28] MEDS ORDERED: SUGAMMADEX SODIUM 500 MG/5 ML VIAL (BRIDION) As Ordered ONE (17:48)
[2019-08-28] MEDS ORDERED: ACETAMINOPHEN 1000MG 100ML IV BTL (OFIRMEV) (J0131 PER 10MG) As Ordered ONE (18:06)
[2019-08-28] MEDS ORDERED: fentaNYL 100 MCG/2 ML INJECTION (J3010) IV PRN (19:45)
[2019-08-28] MEDS ORDERED: ONDANSETRON 4MG/2ML VIAL (J2405) IV PRN (19:45)
[2019-08-28] MEDS ORDERED: KETOROLAC 30 MG/ML VIAL (J1885) IV PRN (19:45)
[2019-08-28] MEDS ORDERED: METOCLOPRAMIDE INJ 10MG/2ML VIAL (J2765) IV PRN (19:45)
[2019-08-28] MEDS ORDERED: LR 1,000 ML IV SCH (19:45)
[2019-08-28] MEDS: ROSUVASTATIN 10 MG TAB (CRESTOR) PO SCH (21:00)
[2019-08-28] MEDS: QUEtiapine FUMARATE 25 MG TAB PO SCH (21:00)
[2019-08-29] VITALS (10 sets, daily range): BP systolic 102–116; BP diastolic 46–68; O2SAT 92–94
[2019-08-29] MEDS: ACETAMINOPHEN TAB 650MG DOSE (2X325MG) PO PRN (02:06)
[2019-08-29] MEDS: ceFAZolin SOD 1 GM in D5W MINI-BAG PLUS 50 ML IV SCH ×3 (02:06→17:34)
[2019-08-29] MEDS: IPRATROPIUM 0.5MG/ALBUTEROL 2.5MG INH SOL UD 3ML (DUONEB)(J7620) NEB SCH ×4 (02:49→19:38)
[2019-08-29] MEDS: MORPHINE 2 MG/ML 1ML VIAL (J2270) IV PRN (04:03)
[2019-08-29] MEDS ORDERED: traMADol 50 MG TAB PO PRN ×2 (05:45)
[2019-08-29] MEDS: ACETAMINOPHEN 500 MG TAB PO SCH ×3 (06:06→20:13)
[2019-08-29] MEDS: FLUTICASONE HFA 110 MCG 12 GM INHALER (FLOVENT) INH SCH ×2 (08:19→19:38)
--- NOTE | 2019-08-29 09:08 | REP ---
Clinical: Hip fracture. Technique: Intraoperative fluoroscopic imaging using portable C-arm technique. Findings: Satisfactory open reduction and fixation for right hip fracture. Intermedullary vernell and compression screw in satisfactory position. Total fluoroscopic time 3 minutes. Impression: Satisfactory open reduction and fixation. Electronically Signed by Sebastian Renteria MD 08/29/2019 09:00 A
[2019-08-29] MEDS: CLOPIDOGREL 75 MG TAB PO SCH (09:26)
[2019-08-29] MEDS: SERTRALINE HCL 50 MG TAB PO SCH (09:26)
[2019-08-29] MEDS: GABAPENTIN 300 MG CAP PO SCH ×3 (09:26→20:12)
[2019-08-29] MEDS: PANTOPRAZOLE 40MG TAB (PROTONIX) PO SCH (09:26)
[2019-08-29] MEDS: DOCUSATE SODIUM 100 MG CAP PO SCH ×2 (09:26→20:12)
[2019-08-29] MEDS: LevoFLOXacin IV 750 MG in IV 1 EA IV SCH (09:27)
[2019-08-29] MEDS: TORSEMIDE 10 MG TABLET PO SCH (09:27)
[2019-08-29] MEDS: predniSONE 20 MG TAB PO SCH (09:27)
--- NOTE | 2019-08-29 11:07 | IPNPDOC ---
Subjective Date Seen The patient was seen on 08/29/19. Subjective Chief Complaint/HPI Patient is comfortable in no distress is status post surgery General: Denies: ROS Unobtainable, Chills, Night Sweats, Fatigue, Malaise, Normal Appetite, Other Symptoms Constitutional: Denies: Chills, Fever, Malaise, Night Sweats, Weakness, Fatigue, Weight Loss, Lethargy, Other Pulmonary: Denies: Dyspnea, Cough, Pleuritic Chest Pain, Other Symptoms Cardiovascular: Denies: Chest Pain, Palpitations, Orthopnea, Paroxysmal Noc. Dyspnea, Edema, Lt Headedness, Other Symptoms Gastrointestinal: Denies: Nausea, Vomiting, Abdominal Pain, Diarrhea, Constipation, Melena, Hematochezia, Other Symptoms Endocrine: Denies: Polydipsia, Polyphagia, Polyuria, Heat Intolerance, Cold Intolerance, Other Endocrine Sx Musculoskeletal: Denies: Neck Pain, Back Pain, Shoulder Pain, Arm Pain, Hand Pain, Leg Pain, Foot Pain, Joint Pain, Muscle Pain, Spasms, Other Symptoms Neurological: Denies: Weakness, Numbness, Incoordination, Change in speech, Confusion, Seizures, Other Symptoms Objective Physical Examination ENT Exam: Positive: Atraumatic, Mucous membr. moist/pink Neck Exam: Positive: Supple Chest Exam: Positive: Clear to auscultation, Other (. No more audible wheezing) Heart Exam: Positive: Rate Normal, Normal S1, Normal S2 Abdomen Exam: Positive: Soft, Other (audible. Scattered rhonchi bilaterally on deep inspiration but no wheezing, no rales) Extremity Exam: Positive: Other (tenderness right hip on palpation) Skin Exam: Positive: Nl turgor and temperature Assessment /Plan Problems (1) Hip fracture, right Status: Acute Problem Text: Status post right hip surgery And management and DVT prophylaxis as per orthopedic Physical therapy has been ordered Further plans as per also regarding discharge (2) COPD with acute exacerbation Status: Acute Problem Text: Patient responded very well to Levaquin, nebulizer and prednisone . His lungs are clear and no more wheezing . He also has been started on fluticasone for long-term care, which should be continued and discharge (3) Fall Status: Acute Problem Text: Mechanical fall , No further workup needed (4) HTN (hypertension) Status: Chronic Problem Text: Continue all present home meds (5) Depression Status: Chronic Problem Text: Continue all home meds (6) CAD (coronary artery disease) Status: Chronic Problem Text: continue present meds Plan/VTE VTE Prophylaxis Ordered?: Yes VS, I&O, 24H, Fishbone Vital Signs/I&O Vital Signs Date Time Temp Pulse Resp B/P (MAP) Pulse Ox O2 Delivery O2 Flow Rate FiO2 08/29/19 09:00 3.0 08/29/19 06:00 97.4 70 18 107/53 (71) 94 Nasal Cannula 08/26/19 19:32 28 I&O- Last 24 Hours up to 6 AM 08/29/19 06:00 Intake Total 1810 ml Output Total 945 ml Balance 865 ml Laboratory Data Microbiology Microbiology 08/24/19 Respiratory Virus Panel (PCR) ([facility]) - Final, Complete 08/24/19 Gram Stain - Final, Complete 08/24/19 Sputum Culture - Final, Complete BRISSA SINGH MD Aug 29, 2019 11:07
[2019-08-29] MEDS: ROSUVASTATIN 10 MG TAB (CRESTOR) PO SCH (20:12)
[2019-08-29] MEDS: QUEtiapine FUMARATE 25 MG TAB PO SCH (20:12)
[2019-08-30] MEDS: IPRATROPIUM 0.5MG/ALBUTEROL 2.5MG INH SOL UD 3ML (DUONEB)(J7620) NEB SCH ×4 (01:22→18:30)
[2019-08-30] MEDS: ACETAMINOPHEN 500 MG TAB PO SCH ×3 (04:54→21:08)
[2019-08-30 06:00] VITALS: BP 113/63
[2019-08-30 07:12] LABS: BASO % 0.1 % (0.0-1.0); EOS % 0.3 % (0.0-3.0); HEMATOCRIT 27.6 % (42.0-52.0); HEMOGLOBIN 8.8 g/dl (13.5-17.5); LYMPH # 0.6 10^3/uL (1.5-5.0); MEAN CORPUSCULAR HEMOGLOBIN 31.9 pg (27.0-33.0); MEAN CORPUSCULAR HGB CONC 31.9 g/dl (32.0-36.5); MONO # 0.9 10^3/uL (0.0-0.8); MONO % 9.4 % (0.0-5.0); NEUTROPHILS # 8.2 10^3/uL (1.5-8.5); NEUTROPHILS % 82.4 % (36.0-66.0); PLATELET COUNT, AUTOMATED 148 10^3/uL (150-450); RED BLOOD COUNT 2.76 10^6/uL (4.30-6.10)
[2019-08-30 07:31] LABS: INR 1.16; PROTHROMBIN TIME 14.6 SECONDS (11.8-14.0)
[2019-08-30 07:45] LABS: ALBUMIN 2.3 GM/DL (3.2-5.2); BILIRUBIN,TOTAL 0.5 MG/DL (0.2-1.0); CALCIUM LEVEL 8.7 MG/DL (8.8-10.2); CREATININE FOR GFR 1.25 MG/DL (0.70-1.30); GLOMERULAR FILTRATION RATE 59.9 (>42); POTASSIUM SERUM 4.1 MEQ/L (3.5-5.1); TOTAL PROTEIN 5.5 GM/DL (6.4-8.2)
[2019-08-30] MEDS: DOCUSATE SODIUM 100 MG CAP PO SCH ×2 (08:07→21:07)
[2019-08-30] MEDS: GABAPENTIN 300 MG CAP PO SCH ×3 (08:07→21:07)
[2019-08-30] MEDS: predniSONE 20 MG TAB PO SCH (08:08)
[2019-08-30] MEDS: CLOPIDOGREL 75 MG TAB PO SCH (08:08)
[2019-08-30] MEDS: SERTRALINE HCL 50 MG TAB PO SCH (08:08)
[2019-08-30] MEDS: PANTOPRAZOLE 40MG TAB (PROTONIX) PO SCH (08:08)
[2019-08-30] MEDS: LevoFLOXacin IV 750 MG in IV 1 EA IV SCH (08:08)
[2019-08-30] MEDS: TORSEMIDE 10 MG TABLET PO SCH (08:13)
[2019-08-30] MEDS: FLUTICASONE HFA 110 MCG 12 GM INHALER (FLOVENT) INH SCH ×2 (08:33→22:00)
--- NOTE | 2019-08-30 10:34 | REP ---
Clinical: Shortness of breath. Comparison: 08/26/2019. Findings: Mediastinum and cardiac silhouette stable. Lung suresh demonstrate chronic interstitial and emphysematous disease. Trace basilar atelectasis cannot be excluded. No pneumothorax. Skeletal structures are stable. Impression: Chronic stable changes. Cannot exclude trace basilar atelectasis. Electronically Signed by Sebastian Renteria MD 08/30/2019 10:25 A
--- NOTE | 2019-08-30 10:48 | IPNPDOC ---
Subjective Date Seen The patient was seen on 08/30/19. Subjective Chief Complaint/HPI Patient is comfortable in no distress is getting his treatment for emphysema, physical therapy in progress Possible transfer to rehabilitation facility in a.m. once cleared by orthopedic General: Denies: ROS Unobtainable, Chills, Night Sweats, Fatigue, Malaise, Normal Appetite, Other Symptoms Constitutional: Denies: Chills, Fever, Malaise, Night Sweats, Weakness, Fatigue, Weight Loss, Lethargy, Other Skin: Denies: Rash, Lesions, Jaundice, Bruising, Itching, Dry, Breakdown, Nail Changes, Other Pulmonary: Denies: Dyspnea, Cough, Pleuritic Chest Pain, Other Symptoms Cardiovascular: Denies: Chest Pain, Palpitations, Orthopnea, Paroxysmal Noc. Dyspnea, Edema, Lt Headedness, Other Symptoms Gastrointestinal: Denies: Nausea, Vomiting, Abdominal Pain, Diarrhea, Constipation, Melena, Hematochezia, Other Symptoms Musculoskeletal: Denies: Neck Pain, Back Pain, Shoulder Pain, Arm Pain, Hand Pain, Leg Pain, Foot Pain, Joint Pain, Muscle Pain, Spasms, Other Symptoms Neurological: Denies: Weakness, Numbness, Incoordination, Change in speech, Confusion, Seizures, Other Symptoms Objective Physical Examination ENT Exam: Positive: Atraumatic, Mucous membr. moist/pink Neck Exam: Positive: Supple Chest Exam: Positive: Other (with basilar crackles at the bases but no wheezing) Heart Exam: Positive: Rate Normal, Normal S1, Normal S2 Abdomen Exam: Positive: Soft, Other (audible. Scattered rhonchi bilaterally on deep inspiration but no wheezing, no rales) Extremity Exam: Positive: Other (tenderness right hip on palpation) Skin Exam: Positive: Nl turgor and temperature Assessment /Plan Problems (1) Hip fracture, right Status: Acute Problem Text: Status post right hip surgery And management and DVT prophylaxis as per orthopedic PT and progress Discharged to rehabilitation once cleared by orthopedic (2) COPD with acute exacerbation Status: Acute Problem Text: Patient is clinically stable, responding very well to prednisone and nebulizer treatment Levaquin is not required as there is no evidence of infection. Will DC levaquin Repeat chest x-ray shows emphysema changes and in chronic interstitial changes Patient has been started on the Advair for long-term care , No further intervention. Continue present care (3) Fall Status: Acute Problem Text: Mechanical fall , No further workup needed (4) HTN (hypertension) Status: Chronic Problem Text: Continue all present home meds (5) Depression Status: Chronic Problem Text: Continue all home meds (6) CAD (coronary artery disease) Status: Chronic Problem Text: continue present meds Plan/VTE VTE Prophylaxis Ordered?: Yes VS, I&O, 24H, Fishbone Vital Signs/I&O Vital Signs Date Time Temp Pulse Resp B/P (MAP) Pulse Ox O2 Delivery O2 Flow Rate FiO2 08/30/19 09:00 3.0 08/30/19 08:37 18 08/30/19 08:07 96 08/30/19 06:00 98.0 74 113/63 (80) Nasal Cannula 08/26/19 19:32 28 I&O- Last 24 Hours up to 6 AM 08/30/19 06:00 Intake Total 1630 ml Output Total 650 ml Balance 980 ml Laboratory Data 24H LABS Laboratory Tests 2 08/30/19 06:11: Immature Granulocyte % (Auto) 1.8, Neutrophils (%) (Auto) 82.4H, Lymphocytes (%) (Auto) 6.0L, Monocytes (%) (Auto) 9.4H, Eosinophils (%) (Auto) 0.3, Basophils (%) (Auto) 0.1, Neutrophils # (Auto) 8.2, Lymphocytes # (Auto) 0.6L, Monocytes # (Auto) 0.9H, Eosinophils # (Auto) 0.0, Basophils # (Auto) 0.0, Nucleated Red Blood Cells % (auto) 0.0, Prothrombin Time 14.6H, Prothromb Time International Ratio 1.16, Anion Gap 4L, Glomerular Filtration Rate 59.9, Calcium Level 8.7L, Total Bilirubin 0.5, Aspartate Amino Transf (AST/SGOT) 30, Alanine Aminotransferase (ALT/SGPT) 30, Alkaline Phosphatase 81, Total Protein 5.5L, Albumin 2.3L, Albumin/Globulin Ratio 0.72L CBC/BMP Laboratory Tests 08/30/19 06:11 Microbiology Microbiology 08/24/19 Respiratory Virus Panel (PCR) ([facility]) - Final, Complete 08/24/19 Gram Stain - Final, Complete 08/24/19 Sputum Culture - Final, Complete BRISSA SINGH MD Aug 30, 2019 10:48
[2019-08-30 14:00] VITALS: BP 95/54
[2019-08-30] MEDS: QUEtiapine FUMARATE 25 MG TAB PO SCH (21:07)
[2019-08-30] MEDS: ROSUVASTATIN 10 MG TAB (CRESTOR) PO SCH (21:08)
[2019-08-30 22:00] VITALS: BP 123/61; O2SAT 95
[2019-08-31] MEDS: IPRATROPIUM 0.5MG/ALBUTEROL 2.5MG INH SOL UD 3ML (DUONEB)(J7620) NEB SCH ×4 (04:24→20:30)
[2019-08-31 06:00] VITALS: BP 122/62
[2019-08-31 06:15] LABS: EOS # 0.1 10^3/uL (0.0-0.5); EOS % 0.7 % (0.0-3.0); HEMOGLOBIN 8.6 g/dl (13.5-17.5); LYMPH # 0.8 10^3/uL (1.5-5.0); LYMPH % 7.9 % (24.0-44.0); MEAN CORPUSCULAR HEMOGLOBIN 31.9 pg (27.0-33.0); MEAN CORPUSCULAR HGB CONC 31.9 g/dl (32.0-36.5); MONO # 0.9 10^3/uL (0.0-0.8); NEUTROPHILS # 8.2 10^3/uL (1.5-8.5); PLATELET COUNT, AUTOMATED 158 10^3/uL (150-450); WHITE BLOOD COUNT 10.2 10^3/uL (4.0-10.0)
[2019-08-31] MEDS: ACETAMINOPHEN 500 MG TAB PO SCH ×3 (06:20→21:47)
[2019-08-31 06:40] LABS: ALBUMIN 2.2 GM/DL (3.2-5.2); ALT/SGPT 76 U/L (12-78); BILIRUBIN,TOTAL 0.4 MG/DL (0.2-1.0); BLOOD UREA NITROGEN 30 MG/DL (7-18); CARBON DIOXIDE LEVEL 29 MEQ/L (21-32); CHLORIDE LEVEL 107 MEQ/L (98-107); CREATININE FOR GFR 1.04 MG/DL (0.70-1.30); GLOMERULAR FILTRATION RATE > 60.0 (>42); GLUCOSE, FASTING 97 MG/DL (70-100); POTASSIUM SERUM 3.8 MEQ/L (3.5-5.1); SODIUM LEVEL 140 MEQ/L (136-145); TOTAL PROTEIN 5.5 GM/DL (6.4-8.2)
[2019-08-31] MEDS ORDERED: ACET-897 PO (06:48)
[2019-08-31] MEDS ORDERED: TRAM50TA2 PO (06:48)
[2019-08-31] MEDS: FLUTICASONE HFA 110 MCG 12 GM INHALER (FLOVENT) INH SCH ×2 (07:27→20:31)
[2019-08-31] MEDS: DOCUSATE SODIUM 100 MG CAP PO SCH ×2 (07:51→21:47)
[2019-08-31] MEDS: GABAPENTIN 300 MG CAP PO SCH ×3 (07:51→21:47)
[2019-08-31] MEDS: TORSEMIDE 10 MG TABLET PO SCH (07:51)
[2019-08-31] MEDS: SERTRALINE HCL 50 MG TAB PO SCH (07:52)
[2019-08-31] MEDS: PANTOPRAZOLE 40MG TAB (PROTONIX) PO SCH (07:52)
[2019-08-31] MEDS: CLOPIDOGREL 75 MG TAB PO SCH (07:52)
--- NOTE | 2019-08-31 10:09 | IPNPDOC ---
Subjective Date Seen The patient was seen on 08/31/19. Subjective Chief Complaint/HPI Patient is comfortable in no distress supple, no new complaints. Physical therapy in progress General: Reports: ROS Unobtainable Constitutional: Denies: Chills, Fever, Malaise, Night Sweats, Weakness, Fatigue, Weight Loss, Lethargy, Other Pulmonary: Denies: Dyspnea, Cough, Pleuritic Chest Pain, Other Symptoms Cardiovascular: Denies: Chest Pain, Palpitations, Orthopnea, Paroxysmal Noc. Dyspnea, Edema, Lt Headedness, Other Symptoms Gastrointestinal: Denies: Nausea, Vomiting, Abdominal Pain, Diarrhea, Constipation, Melena, Hematochezia, Other Symptoms Musculoskeletal: Denies: Neck Pain, Back Pain, Shoulder Pain, Arm Pain, Hand Pain, Leg Pain, Foot Pain, Joint Pain, Muscle Pain, Spasms, Other Symptoms Neurological: Denies: Weakness, Numbness, Incoordination, Change in speech, Confusion, Seizures, Other Symptoms Objective Physical Examination ENT Exam: Positive: Atraumatic, Mucous membr. moist/pink Neck Exam: Positive: Supple Chest Exam: Positive: Other (with basilar crackles at the bases but no wheezing) Heart Exam: Positive: Rate Normal, Normal S1, Normal S2 Abdomen Exam: Positive: Soft, Other (audible. Scattered rhonchi bilaterally on deep inspiration but no wheezing, no rales) Extremity Exam: Positive: Other (tenderness right hip on palpation) Skin Exam: Positive: Nl turgor and temperature Assessment /Plan Problems (1) Hip fracture, right Status: Acute Problem Text: Status post right hip surgery And management and DVT prophylaxis as per orthopedic Physical therapy in progress Possible transfer to acute rehabilitation unit was the bed is available and patient is accepted (2) COPD with acute exacerbation Status: Acute Problem Text: Patient is clinically stable, responding very well to prednisone and nebulizer treatment Levaquin is not required as there is no evidence of infection. Will DC levaquin Repeat chest x-ray shows emphysema changes and in chronic interstitial changes Patient has been started on the Advair for long-term care Continue present care as patient is clinically stable (3) Fall Status: Acute Problem Text: Mechanical fall , No further workup needed (4) HTN (hypertension) Status: Chronic Problem Text: Continue all present home meds (5) Depression Status: Chronic Problem Text: Continue all home meds (6) CAD (coronary artery disease) Status: Chronic Problem Text: continue present meds Plan/VTE VTE Prophylaxis Ordered?: Yes VS, I&O, 24H, Fishbone Vital Signs/I&O Vital Signs Date Time Temp Pulse Resp B/P (MAP) Pulse Ox O2 Delivery O2 Flow Rate FiO2 08/31/19 06:00 98.0 74 20 122/62 (82) 95 Nasal Cannula 3.0 08/30/19 22:00 32 I&O- Last 24 Hours up to 6 AM 08/31/19 06:00 Intake Total 1350 ml Output Total 1150 ml Balance 200 ml Laboratory Data 24H LABS Laboratory Tests 2 08/31/19 05:39: Immature Granulocyte % (Auto) 2.4, Neutrophils (%) (Auto) 80.0H, Lymphocytes (%) (Auto) 7.9L, Monocytes (%) (Auto) 9.0H, Eosinophils (%) (Auto) 0.7, Basophils (%) (Auto) 0.0, Neutrophils # (Auto) 8.2, Lymphocytes # (Auto) 0.8L, Monocytes # (Auto) 0.9H, Eosinophils # (Auto) 0.1, Basophils # (Auto) 0.0, Nucleated Red Blood Cells % (auto) 0.0, Anion Gap 4L, Glomerular Filtration Rate > 60.0, Calcium Level 8.0L, Total Bilirubin 0.4, Aspartate Amino Transf (AST/SGOT) 115H, Alanine Aminotransferase (ALT/SGPT) 76, Alkaline Phosphatase 92, Total Protein 5.5L, Albumin 2.2L, Albumin/Globulin Ratio 0.67L CBC/BMP Laboratory Tests 08/31/19 05:39 Microbiology Microbiology 08/24/19 Respiratory Virus Panel (PCR) ([facility]) - Final, Complete 08/24/19 Gram Stain - Final, Complete 08/24/19 Sputum Culture - Final, Complete BRISSA SINGH MD Aug 31, 2019 10:09
[2019-08-31 14:00] VITALS: BP 105/52
[2019-08-31] MEDS: QUEtiapine FUMARATE 25 MG TAB PO SCH (21:47)
[2019-08-31] MEDS: ROSUVASTATIN 10 MG TAB (CRESTOR) PO SCH (21:47)
[2019-08-31 22:00] VITALS: BP 100/46
[2019-09-01] MEDS: IPRATROPIUM 0.5MG/ALBUTEROL 2.5MG INH SOL UD 3ML (DUONEB)(J7620) NEB SCH ×4 (01:22→20:29)
[2019-09-01] MEDS: ACETAMINOPHEN 500 MG TAB PO SCH ×3 (05:53→21:04)
[2019-09-01 06:00] VITALS: BP 102/54
--- NOTE | 2019-09-01 07:36 | RO ---
DATE OF PROCEDURE: 08/28/2019 PREOPERATIVE DIAGNOSIS: Right intertrochanteric hip fracture. POSTOPERATIVE DIAGNOSIS: Right intertrochanteric hip fracture. PROCEDURE: Right intramedullary femur nailing. SURGEON: Dr. Eric Wiley OPERATIONS AND MAINTENANCE SUPERVISOR: ANESTHESIA: General. PREOPERATIVE ANTIBIOTICS: 2 grams of Ancef. COMPLICATIONS: None. BLOOD LOSS: 150 mL. INDICATION: 73-year-old male who suffered a fall at home. Was unable to ambulate. In order to increase his ambulation and increase his pulmonary/cardiac function, we decided on operative intervention. We discussed the risks and benefits including, but not limited to, infection, damage to surrounding structures, incomplete relief, malunion, nonunion. Patient wished to proceed along with his corrections caseworker. DESCRIPTION OF PROCEDURE: Patient was brought back to the operating room (OR) in the supine position, underwent general anesthesia, and was transferred over to the fracture table. Once safely attached to the fracture table, we applied traction and abduction to the right leg and took preoperative x-rays after a time-out confirming site, side, and surgery. At that point, we realized we were able to obtain reasonable AP reduction. However, on the lateral, there was apex anterior of the neck. At that point, we prepped and draped the right leg in the usual fashion. We then had repeat time-out confirming site, side, and surgery. We then made a stab incision anterior to the hip and bluntly dissected down to the femoral neck using a tonsil. We then used a ball spike to push down onto the femoral neck to reduce the apex anteriorly, happy that we were able to do so. At this point, we then made our longitudinal incision proximally over the greater trochanter and obtained our starting point on the tip of the greater trochanter confirmed on AP and lateral and then used our entry reamer. Then we sequentially reamed up to 12.5 and measured a 120 nail. We then inserted the nail. Once we had this inserted, we used a ball spike to reduce the fracture once again and then used the K-wire for lag screw to place into the head in a center-center position. We ended up being slightly inferior and posterior, which was acceptable, at which point we confirmed the reduction on a lateral. We then drilled for our helical blade into subchondral bone. Once this was done, we then passed the helical blade while maintaining our lateral reduction. Once the helical blade was in place, we locked it in place and removed the ball point spike. The reduction in the apex anterior was maintained. Removing that apex anterior deformity, we were very happy with this. We then used perfect bois forte techniques to make a stab incision distally and place one distal locking screw. We confirmed on AP and lateral both up at the hip and down at the knee, confirming our reduction and fixation. We were happy with this. We then irrigated the wounds thoroughly. Closed subcutaneous tissue with #2-0 Vicryl and negro for skin and gauze and Tegaderm. Patient was then transferred over to the regular bed and awakened from general anesthesia and taken to postanesthesia care unit (PACU) in stable condition. POSTOPERATIVE PLAN: Patient will work on range of motion and weightbearing as tolerated, get Surgical Care Improvement Project (SCIP) antibiotic prophylaxis, and will restart his anticoagulation. MOODY
[2019-09-01] MEDS: FLUTICASONE HFA 110 MCG 12 GM INHALER (FLOVENT) INH SCH ×2 (07:50→21:00)
[2019-09-01] MEDS: GABAPENTIN 300 MG CAP PO SCH ×3 (08:13→21:05)
[2019-09-01] MEDS: DOCUSATE SODIUM 100 MG CAP PO SCH ×2 (08:13→21:04)
[2019-09-01] MEDS: TORSEMIDE 10 MG TABLET PO SCH (08:14)
[2019-09-01] MEDS: SERTRALINE HCL 50 MG TAB PO SCH (08:14)
[2019-09-01] MEDS: CLOPIDOGREL 75 MG TAB PO SCH (08:14)
[2019-09-01] MEDS: PANTOPRAZOLE 40MG TAB (PROTONIX) PO SCH (08:14)
--- NOTE | 2019-09-01 12:18 | IPNPDOC ---
Subjective Date Seen The patient was seen on 09/01/19. Subjective Chief Complaint/HPI Seen and examined at bedside, no specific complaints. General: Reports: Normal Appetite; Denies: Chills, Night Sweats, Fatigue, Malaise Constitutional: Denies: Chills, Fever, Night Sweats Eyes: Denies: Pain, Vision change ENT: Denies: Head Aches, Ear Pain, Dysphagia Skin: Denies: Rash, Lesions, Breakdown Pulmonary: Denies: Dyspnea, Cough Cardiovascular: Denies: Chest Pain, Palpitations, Orthopnea, Paroxysmal Noc. Dyspnea, Lt Headedness Gastrointestinal: Denies: Nausea, Vomiting, Abdominal Pain, Diarrhea, Constipation Genitourinary: Denies: Dysuria, Frequency, Incontinence, Retention Hematologic: Denies: Bruising, Bleeding Excessively Musculoskeletal: Denies: Neck Pain, Back Pain, Joint Pain, Muscle Pain, Spasms Neurological: Denies: Weakness, Numbness, Change in speech, Confusion Psych: Reports: Mood Normal; Denies: Depression, Memory Issues Objective Physical Examination General Exam: Positive: Alert, No Acute Distress Eye Exam: Positive: PERRLA, Conjunctiva & lids normal, EOMI; Negative: Sclera icteric ENT Exam: Positive: Atraumatic, Mucous membr. moist/pink Neck Exam: Positive: Supple Chest Exam: Positive: Other (with basilar crackles at the bases but no wheezing) Heart Exam: Positive: Rate Normal, Normal S1, Normal S2 Telemetry: Positive: No significant arrhythmia Abdomen Exam: Positive: Soft, Other (audible. Scattered rhonchi bilaterally on deep inspiration but no wheezing, no rales) Male Exam: Positive: Normal Genital Exam Extremity Exam: Positive: Other (tenderness right hip on palpation) Skin Exam: Positive: Nl turgor and temperature Neuro Exam: Positive: Normal Gait, Normal Speech, Cranial Nerves 3-12 NL, Reflexes 2+ Psych Exam: Positive: Mental status NL, Mood NL, Oriented x 3 Assessment /Plan Assessment 1. R intertrochanteric hip fracture s/p intramedullary femur nailing - PT/OT as tolerated. - pain control prn. - ARU when bed available. 2. COPD exacerbation - continue prednisone, nebulizer treatments. - continue advair. 3. hyperlipidemia - continue statin. 4. depression - continue seroquel, zoloft. Plan/VTE VTE Prophylaxis Ordered?: Yes VS, I&O, 24H, Fishbone Vital Signs/I&O Vital Signs Date Time Temp Pulse Resp B/P (MAP) Pulse Ox O2 Delivery O2 Flow Rate FiO2 09/01/19 08:00 3.0 09/01/19 06:00 97.4 62 18 102/54 (70) 97 Nasal Cannula 08/30/19 22:00 32 I&O- Last 24 Hours up to 6 AM 09/01/19 06:00 Intake Total 950 ml Output Total 700 ml Balance 250 ml Laboratory Data Microbiology Microbiology 08/24/19 Respiratory Virus Panel (PCR) ([facility]) - Final, Complete 08/24/19 Gram Stain - Final, Complete 08/24/19 Sputum Culture - Final, Complete ZBIGNIEW SUAREZ MD Sep 01, 2019 12:18
[2019-09-01 14:00] VITALS: BP 101/56
[2019-09-01] MEDS: ROSUVASTATIN 10 MG TAB (CRESTOR) PO SCH (21:04)
[2019-09-01] MEDS: QUEtiapine FUMARATE 25 MG TAB PO SCH (21:05)
[2019-09-01 22:00] VITALS: BP 103/55
[2019-09-02] MEDS: IPRATROPIUM 0.5MG/ALBUTEROL 2.5MG INH SOL UD 3ML (DUONEB)(J7620) NEB SCH ×4 (02:10→20:08)
[2019-09-02] MEDS ORDERED: MAGNESIUM CITRATE 300 ML BTL PO ONE (05:30)
[2019-09-02] MEDS: ACETAMINOPHEN 500 MG TAB PO SCH ×3 (05:53→20:47)
[2019-09-02 06:00] VITALS: BP 109/55
[2019-09-02] MEDS: FLUTICASONE HFA 110 MCG 12 GM INHALER (FLOVENT) INH SCH ×2 (07:13→20:10)
[2019-09-02] MEDS: MIRALAX *UNIT DOSE* 17GM PACKET PO SCH (08:14)
[2019-09-02] MEDS: GABAPENTIN 300 MG CAP PO SCH ×3 (08:15→20:47)
[2019-09-02] MEDS: TORSEMIDE 10 MG TABLET PO SCH (08:15)
[2019-09-02] MEDS: CLOPIDOGREL 75 MG TAB PO SCH (08:15)
[2019-09-02] MEDS: PANTOPRAZOLE 40MG TAB (PROTONIX) PO SCH (08:15)
[2019-09-02] MEDS: SERTRALINE HCL 50 MG TAB PO SCH (08:15)
[2019-09-02] MEDS: DOCUSATE SODIUM 100 MG CAP PO SCH ×2 (08:15→20:47)
--- NOTE | 2019-09-02 10:51 | IPNPDOC ---
Subjective Date Seen The patient was seen on 09/02/19. Subjective Chief Complaint/HPI Seen and examined at bedside, NAD, no specific complaints. General: Reports: Normal Appetite; Denies: Chills, Night Sweats, Fatigue, Malaise Constitutional: Denies: Chills, Fever, Night Sweats Eyes: Denies: Pain, Vision change ENT: Denies: Head Aches, Ear Pain, Dysphagia Skin: Denies: Rash, Lesions, Breakdown Pulmonary: Denies: Dyspnea, Cough Cardiovascular: Denies: Chest Pain, Palpitations, Orthopnea, Paroxysmal Noc. Dyspnea, Lt Headedness Gastrointestinal: Denies: Nausea, Vomiting, Abdominal Pain, Diarrhea, Constipation Genitourinary: Denies: Dysuria, Frequency, Incontinence, Retention Hematologic: Denies: Bruising, Bleeding Excessively Musculoskeletal: Denies: Neck Pain, Back Pain, Joint Pain, Muscle Pain, Spasms Neurological: Denies: Weakness, Numbness, Change in speech, Confusion Psych: Reports: Mood Normal; Denies: Depression, Memory Issues Objective Physical Examination General Exam: Positive: Alert, No Acute Distress Eye Exam: Positive: PERRLA, Conjunctiva & lids normal, EOMI; Negative: Sclera icteric ENT Exam: Positive: Atraumatic, Mucous membr. moist/pink Neck Exam: Positive: Supple Chest Exam: Positive: Other (with basilar crackles at the bases but no wheezing) Heart Exam: Positive: Rate Normal, Normal S1, Normal S2 Telemetry: Positive: No significant arrhythmia Abdomen Exam: Positive: Soft, Other (audible. Scattered rhonchi bilaterally on deep inspiration but no wheezing, no rales) Male Exam: Positive: Normal Genital Exam Extremity Exam: Positive: Other (tenderness right hip on palpation) Skin Exam: Positive: Nl turgor and temperature Neuro Exam: Positive: Normal Gait, Normal Speech, Cranial Nerves 3-12 NL, Reflexes 2+ Psych Exam: Positive: Mental status NL, Mood NL, Oriented x 3 Assessment /Plan Assessment 1. R intertrochanteric hip fracture s/p intramedullary femur nailing - PT/OT as tolerated. - pain control prn. - ARU when bed available. 2. COPD exacerbation - continue prednisone, nebulizer treatments. - continue advair. 3. hyperlipidemia - continue statin. 4. depression - continue seroquel, zoloft. Plan/VTE VTE Prophylaxis Ordered?: Yes VS, I&O, 24H, Fishbone Vital Signs/I&O Vital Signs Date Time Temp Pulse Resp B/P (MAP) Pulse Ox O2 Delivery O2 Flow Rate FiO2 09/02/19 09:00 2.5 09/02/19 06:00 97.9 69 17 109/55 (73) 96 09/01/19 14:00 Room Air 08/30/19 22:00 32 I&O- Last 24 Hours up to 6 AM 09/02/19 06:00 Intake Total 1500 ml Output Total 1650 ml Balance -150 ml Laboratory Data Microbiology Microbiology 08/24/19 Respiratory Virus Panel (PCR) ([facility]) - Final, Complete 08/24/19 Gram Stain - Final, Complete 08/24/19 Sputum Culture - Final, Complete ZBIGNIEW SUAREZ MD Sep 02, 2019 10:51
[2019-09-02 14:00] VITALS: BP 109/55
[2019-09-02] MEDS: ROSUVASTATIN 10 MG TAB (CRESTOR) PO SCH (20:47)
[2019-09-02] MEDS: QUEtiapine FUMARATE 25 MG TAB PO SCH (20:47)
[2019-09-02 22:00] VITALS: BP 77/55
[2019-09-02 22:18] VITALS: BP 104/54
[2019-09-03] MEDS: HALOPERIDOL 5 MG/ML VIAL (J1630) IM PRN (00:36)
[2019-09-03] MEDS: IPRATROPIUM 0.5MG/ALBUTEROL 2.5MG INH SOL UD 3ML (DUONEB)(J7620) NEB SCH ×4 (00:57→20:16)
[2019-09-03] MEDS: ACETAMINOPHEN 500 MG TAB PO SCH ×3 (04:48→21:17)
[2019-09-03 06:00] VITALS: BP 108/54
[2019-09-03 06:15] LABS: HEMATOCRIT 31.8 % (42.0-52.0); HEMOGLOBIN 10.2 g/dl (13.5-17.5); MEAN CORPUSCULAR HEMOGLOBIN 31.9 pg (27.0-33.0); MEAN CORPUSCULAR HGB CONC 32.1 g/dl (32.0-36.5); MEAN CORPUSCULAR VOLUME 99.4 fl (80.0-96.0); PLATELET COUNT, AUTOMATED 189 10^3/uL (150-450); WHITE BLOOD COUNT 10.5 10^3/uL (4.0-10.0)
[2019-09-03 06:32] LABS: BLOOD UREA NITROGEN 22 MG/DL (7-18); CALCIUM LEVEL 8.5 MG/DL (8.8-10.2); CARBON DIOXIDE LEVEL 28 MEQ/L (21-32); CHLORIDE LEVEL 107 MEQ/L (98-107); CREATININE FOR GFR 1.05 MG/DL (0.70-1.30); GLOMERULAR FILTRATION RATE > 60.0 (>42); GLUCOSE, FASTING 101 MG/DL (70-100); SODIUM LEVEL 138 MEQ/L (136-145)
[2019-09-03] MEDS: FLUTICASONE HFA 110 MCG 12 GM INHALER (FLOVENT) INH SCH ×2 (07:23→20:16)
[2019-09-03] MEDS: DOCUSATE SODIUM 100 MG CAP PO SCH ×2 (09:00→21:16)
[2019-09-03] MEDS: MIRALAX *UNIT DOSE* 17GM PACKET PO SCH (09:00)
[2019-09-03] MEDS: SERTRALINE HCL 50 MG TAB PO SCH (09:03)
[2019-09-03] MEDS: PANTOPRAZOLE 40MG TAB (PROTONIX) PO SCH (09:03)
[2019-09-03] MEDS: TORSEMIDE 10 MG TABLET PO SCH (09:03)
[2019-09-03] MEDS: GABAPENTIN 300 MG CAP PO SCH ×3 (09:03→21:17)
[2019-09-03] MEDS: CLOPIDOGREL 75 MG TAB PO SCH (09:03)
[2019-09-03] MEDS: traMADol 50 MG TAB PO PRN (09:10)
--- NOTE | 2019-09-03 12:10 | IPNPDOC ---
Subjective Date Seen The patient was seen on 09/03/19. Subjective Chief Complaint/HPI Seen and examined at bedside, no specific complaints. General: Reports: Normal Appetite; Denies: Chills, Night Sweats, Fatigue, Malaise Constitutional: Denies: Chills, Fever, Night Sweats Eyes: Denies: Pain, Vision change ENT: Denies: Head Aches, Ear Pain, Dysphagia Skin: Denies: Rash, Lesions, Breakdown Pulmonary: Denies: Dyspnea, Cough Cardiovascular: Denies: Chest Pain, Palpitations, Orthopnea, Paroxysmal Noc. Dyspnea, Lt Headedness Gastrointestinal: Denies: Nausea, Vomiting, Abdominal Pain, Diarrhea, Constipation Genitourinary: Denies: Dysuria, Frequency, Incontinence, Retention Hematologic: Denies: Bruising, Bleeding Excessively Musculoskeletal: Denies: Neck Pain, Back Pain, Joint Pain, Muscle Pain, Spasms Neurological: Denies: Weakness, Numbness, Change in speech, Confusion Psych: Reports: Mood Normal; Denies: Depression, Memory Issues Objective Physical Examination General Exam: Positive: Alert, No Acute Distress Eye Exam: Positive: PERRLA, Conjunctiva & lids normal, EOMI; Negative: Sclera icteric ENT Exam: Positive: Atraumatic, Mucous membr. moist/pink Neck Exam: Positive: Supple Chest Exam: Positive: Other (with basilar crackles at the bases but no wheezing) Heart Exam: Positive: Rate Normal, Normal S1, Normal S2 Telemetry: Positive: No significant arrhythmia Abdomen Exam: Positive: Soft, Other (audible. Scattered rhonchi bilaterally on deep inspiration but no wheezing, no rales) Male Exam: Positive: Normal Genital Exam Extremity Exam: Positive: Other (tenderness right hip on palpation) Skin Exam: Positive: Nl turgor and temperature Neuro Exam: Positive: Normal Gait, Normal Speech, Cranial Nerves 3-12 NL, Reflexes 2+ Psych Exam: Positive: Mental status NL, Mood NL, Oriented x 3 Assessment /Plan Assessment 1. R intertrochanteric hip fracture s/p intramedullary femur nailing - PT/OT as tolerated. - pain control prn. - TITA when bed available. 2. COPD exacerbation - continue prednisone, nebulizer treatments. - continue advair. 3. hyperlipidemia - continue statin. 4. depression - continue seroquel, zoloft. Plan/VTE VTE Prophylaxis Ordered?: Yes VS, I&O, 24H, Fishbone Vital Signs/I&O Vital Signs Date Time Temp Pulse Resp B/P (MAP) Pulse Ox O2 Delivery O2 Flow Rate FiO2 09/03/19 09:40 20 Nasal Cannula 3.0 09/03/19 06:00 98.0 69 108/54 (72) 96 08/30/19 22:00 32 I&O- Last 24 Hours up to 6 AM 09/03/19 06:00 Intake Total 1020 ml Output Total 725 ml Balance 295 ml Laboratory Data 24H LABS Laboratory Tests 2 09/03/19 05:48: Nucleated Red Blood Cells % (auto) 0.0, Anion Gap 3L, Glomerular Filtration Rate > 60.0, Calcium Level 8.5L CBC/BMP Laboratory Tests 09/03/19 05:48 Microbiology Microbiology 08/24/19 Respiratory Virus Panel (PCR) ([facility]) - Final, Complete 08/24/19 Gram Stain - Final, Complete 08/24/19 Sputum Culture - Final, Complete ZBIGNIEW SUAREZ MD Sep 03, 2019 12:10
[2019-09-03 14:00] VITALS: BP 102/60
[2019-09-03 20:00] VITALS: BP 103/60
[2019-09-03] MEDS: QUEtiapine FUMARATE 25 MG TAB PO SCH (21:16)
[2019-09-03] MEDS: ROSUVASTATIN 10 MG TAB (CRESTOR) PO SCH (21:16)
[2019-09-04] MEDS: IPRATROPIUM 0.5MG/ALBUTEROL 2.5MG INH SOL UD 3ML (DUONEB)(J7620) NEB SCH ×4 (01:08→20:22)
[2019-09-04] MEDS: ACETAMINOPHEN 500 MG TAB PO SCH ×3 (05:39→21:11)
[2019-09-04 07:01] VITALS: BP 105/62
[2019-09-04] MEDS: FLUTICASONE HFA 110 MCG 12 GM INHALER (FLOVENT) INH SCH ×2 (07:40→20:22)
[2019-09-04] MEDS: DOCUSATE SODIUM 100 MG CAP PO SCH ×2 (08:20→21:11)
[2019-09-04] MEDS: CLOPIDOGREL 75 MG TAB PO SCH (08:20)
[2019-09-04] MEDS: GABAPENTIN 300 MG CAP PO SCH ×3 (08:20→21:11)
[2019-09-04] MEDS: PANTOPRAZOLE 40MG TAB (PROTONIX) PO SCH (08:20)
[2019-09-04] MEDS: MIRALAX *UNIT DOSE* 17GM PACKET PO SCH (08:21)
[2019-09-04] MEDS: TORSEMIDE 10 MG TABLET PO SCH (08:21)
[2019-09-04] MEDS: SERTRALINE HCL 50 MG TAB PO SCH (08:22)
--- NOTE | 2019-09-04 09:40 | IPNPDOC ---
Subjective Date Seen The patient was seen on 09/04/19. Subjective Chief Complaint/HPI seen and examined at bedside, no specific complaints, making progress with PT. General: Reports: Normal Appetite; Denies: Chills, Night Sweats, Fatigue, Malaise Constitutional: Denies: Chills, Fever, Night Sweats Eyes: Denies: Pain, Vision change ENT: Denies: Head Aches, Ear Pain, Dysphagia Skin: Denies: Rash, Lesions, Breakdown Pulmonary: Denies: Dyspnea, Cough Cardiovascular: Denies: Chest Pain, Palpitations, Orthopnea, Paroxysmal Noc. Dyspnea, Lt Headedness Gastrointestinal: Denies: Nausea, Vomiting, Abdominal Pain, Diarrhea, Constipation Genitourinary: Denies: Dysuria, Frequency, Incontinence, Retention Hematologic: Denies: Bruising, Bleeding Excessively Musculoskeletal: Denies: Neck Pain, Back Pain, Joint Pain, Muscle Pain, Spasms Neurological: Denies: Weakness, Numbness, Change in speech, Confusion Psych: Reports: Mood Normal; Denies: Depression, Memory Issues Objective Physical Examination General Exam: Positive: Alert, No Acute Distress Eye Exam: Positive: PERRLA, Conjunctiva & lids normal, EOMI; Negative: Sclera icteric ENT Exam: Positive: Atraumatic, Mucous membr. moist/pink Neck Exam: Positive: Supple Chest Exam: Positive: Other (with basilar crackles at the bases but no wheezing) Heart Exam: Positive: Rate Normal, Normal S1, Normal S2 Telemetry: Positive: No significant arrhythmia Abdomen Exam: Positive: Soft, Other (audible. Scattered rhonchi bilaterally on deep inspiration but no wheezing, no rales) Male Exam: Positive: Normal Genital Exam Extremity Exam: Positive: Other (tenderness right hip on palpation) Skin Exam: Positive: Nl turgor and temperature Neuro Exam: Positive: Normal Gait, Normal Speech, Cranial Nerves 3-12 NL, Reflexes 2+ Psych Exam: Positive: Mental status NL, Mood NL, Oriented x 3 Assessment /Plan Assessment 1. R intertrochanteric hip fracture s/p intramedullary femur nailing - PT/OT as tolerated. - pain control prn. - TITA when bed available. 2. COPD exacerbation - continue prednisone, nebulizer treatments. - continue advair. 3. hyperlipidemia - continue statin. 4. depression - continue seroquel, zoloft. Plan/VTE VTE Prophylaxis Ordered?: Yes VS, I&O, 24H, Fishbone Vital Signs/I&O Vital Signs Date Time Temp Pulse Resp B/P (MAP) Pulse Ox O2 Delivery O2 Flow Rate FiO2 09/04/19 08:00 3.0 09/04/19 07:01 97.6 72 20 105/62 (76) 97 Room Air 08/30/19 22:00 32 I&O- Last 24 Hours up to 6 AM 09/04/19 06:00 Intake Total 820 ml Output Total 950 ml Balance -130 ml ZBIGNIEW SUAREZ MD Sep 04, 2019 09:40
[2019-09-04 14:00] VITALS: BP 101/67
[2019-09-04 20:54] VITALS: BP 117/53
[2019-09-04] MEDS: ROSUVASTATIN 10 MG TAB (CRESTOR) PO SCH (21:11)
[2019-09-04] MEDS: QUEtiapine FUMARATE 25 MG TAB PO SCH (21:11)
[2019-09-05] MEDS: IPRATROPIUM 0.5MG/ALBUTEROL 2.5MG INH SOL UD 3ML (DUONEB)(J7620) NEB SCH ×4 (02:00→19:16)
[2019-09-05] MEDS: ACETAMINOPHEN 500 MG TAB PO SCH ×3 (05:24→22:11)
[2019-09-05 06:03] VITALS: BP 111/52
[2019-09-05] MEDS: FLUTICASONE HFA 110 MCG 12 GM INHALER (FLOVENT) INH SCH ×2 (08:06→19:16)
[2019-09-05] MEDS: MIRALAX *UNIT DOSE* 17GM PACKET PO SCH (08:28)
[2019-09-05] MEDS: CLOPIDOGREL 75 MG TAB PO SCH (08:28)
[2019-09-05] MEDS: SERTRALINE HCL 50 MG TAB PO SCH (08:29)
[2019-09-05] MEDS: PANTOPRAZOLE 40MG TAB (PROTONIX) PO SCH (08:29)
[2019-09-05] MEDS: DOCUSATE SODIUM 100 MG CAP PO SCH ×2 (08:29→21:00)
[2019-09-05] MEDS: GABAPENTIN 300 MG CAP PO SCH ×3 (08:29→22:11)
[2019-09-05] MEDS: TORSEMIDE 10 MG TABLET PO SCH (08:29)
--- NOTE | 2019-09-05 12:11 | IPNPDOC ---
Subjective Date Seen The patient was seen on 09/05/19. Subjective Chief Complaint/HPI Seen and examined at bedside, doing well, no specific complaints. General: Reports: Normal Appetite; Denies: Chills, Night Sweats, Fatigue, Malaise Constitutional: Denies: Chills, Fever, Night Sweats Eyes: Denies: Pain, Vision change ENT: Denies: Head Aches, Ear Pain, Dysphagia Skin: Denies: Rash, Lesions, Breakdown Pulmonary: Denies: Dyspnea, Cough Cardiovascular: Denies: Chest Pain, Palpitations, Orthopnea, Paroxysmal Noc. Dyspnea, Lt Headedness Gastrointestinal: Denies: Nausea, Vomiting, Abdominal Pain, Diarrhea, Constipation Genitourinary: Denies: Dysuria, Frequency, Incontinence, Retention Hematologic: Denies: Bruising, Bleeding Excessively Musculoskeletal: Denies: Neck Pain, Back Pain, Joint Pain, Muscle Pain, Spasms Neurological: Denies: Weakness, Numbness, Change in speech, Confusion Psych: Reports: Mood Normal; Denies: Depression, Memory Issues Objective Physical Examination General Exam: Positive: Alert, No Acute Distress Eye Exam: Positive: PERRLA, Conjunctiva & lids normal, EOMI; Negative: Sclera icteric ENT Exam: Positive: Atraumatic, Mucous membr. moist/pink Neck Exam: Positive: Supple Chest Exam: Positive: Other (with basilar crackles at the bases but no wheezing) Heart Exam: Positive: Rate Normal, Normal S1, Normal S2 Telemetry: Positive: No significant arrhythmia Abdomen Exam: Positive: Soft, Other (audible. Scattered rhonchi bilaterally on deep inspiration but no wheezing, no rales) Male Exam: Positive: Normal Genital Exam Extremity Exam: Positive: Other (tenderness right hip on palpation) Skin Exam: Positive: Nl turgor and temperature Neuro Exam: Positive: Normal Gait, Normal Speech, Cranial Nerves 3-12 NL, Reflexes 2+ Psych Exam: Positive: Mental status NL, Mood NL, Oriented x 3 Assessment /Plan Assessment 1. R intertrochanteric hip fracture s/p intramedullary femur nailing - PT/OT as tolerated. - pain control prn. - TITA when bed available. 2. COPD exacerbation - continue prednisone, nebulizer treatments. - continue advair. 3. hyperlipidemia - continue statin. 4. depression - continue seroquel, zoloft. Plan/VTE Plan/VTE VTE Prophylaxis Ordered?: Yes VS, I&O, 24H, Fishbone Vital Signs/I&O Vital Signs Date Time Temp Pulse Resp B/P (MAP) Pulse Ox O2 Delivery O2 Flow Rate FiO2 09/05/19 06:03 97.3 64 18 111/52 (71) 94 Room Air 09/04/19 08:00 3.0 08/30/19 22:00 32 I&O- Last 24 Hours up to 6 AM 09/05/19 06:00 Intake Total 1330 ml Output Total 1800 ml Balance -470 ml ZBIGNIEW SUAREZ MD Sep 05, 2019 12:11
[2019-09-05 14:00] VITALS: BP 111/52
[2019-09-05 20:00] VITALS: BP 128/69
[2019-09-05] MEDS: ROSUVASTATIN 10 MG TAB (CRESTOR) PO SCH (22:11)
[2019-09-05] MEDS: QUEtiapine FUMARATE 25 MG TAB PO SCH (22:11)
[2019-09-06] MEDS: IPRATROPIUM 0.5MG/ALBUTEROL 2.5MG INH SOL UD 3ML (DUONEB)(J7620) NEB SCH ×4 (01:46→20:39)
[2019-09-06] MEDS: ACETAMINOPHEN 500 MG TAB PO SCH ×3 (05:38→21:38)
[2019-09-06 05:47] VITALS: BP 124/68
[2019-09-06] MEDS: FLUTICASONE HFA 110 MCG 12 GM INHALER (FLOVENT) INH SCH ×2 (07:27→20:39)
[2019-09-06] MEDS: MIRALAX *UNIT DOSE* 17GM PACKET PO SCH (07:51)
[2019-09-06] MEDS: TORSEMIDE 10 MG TABLET PO SCH (07:51)
[2019-09-06] MEDS: CLOPIDOGREL 75 MG TAB PO SCH (07:51)
[2019-09-06] MEDS: PANTOPRAZOLE 40MG TAB (PROTONIX) PO SCH (07:52)
[2019-09-06] MEDS: SERTRALINE HCL 50 MG TAB PO SCH (07:52)
[2019-09-06] MEDS: GABAPENTIN 300 MG CAP PO SCH ×3 (07:52→21:37)
[2019-09-06] MEDS: DOCUSATE SODIUM 100 MG CAP PO SCH ×2 (07:52→21:00)
--- NOTE | 2019-09-06 08:38 | IPNPDOC ---
Subjective Date Seen The patient was seen on 09/06/19. Subjective Chief Complaint/HPI seen and examined at bedside, no specific complaints. General: Reports: Normal Appetite; Denies: Chills, Night Sweats, Fatigue, Malaise Constitutional: Denies: Chills, Fever, Night Sweats Eyes: Denies: Pain, Vision change ENT: Denies: Head Aches, Ear Pain, Dysphagia Skin: Denies: Rash, Lesions, Breakdown Pulmonary: Denies: Dyspnea, Cough Cardiovascular: Denies: Chest Pain, Palpitations, Orthopnea, Paroxysmal Noc. Dyspnea, Lt Headedness Gastrointestinal: Denies: Nausea, Vomiting, Abdominal Pain, Diarrhea, Constipation Genitourinary: Denies: Dysuria, Frequency, Incontinence, Retention Hematologic: Denies: Bruising, Bleeding Excessively Musculoskeletal: Denies: Neck Pain, Back Pain, Joint Pain, Muscle Pain, Spasms Neurological: Denies: Weakness, Numbness, Change in speech, Confusion Psych: Reports: Mood Normal; Denies: Depression, Memory Issues Objective Physical Examination General Exam: Positive: Alert, No Acute Distress Eye Exam: Positive: PERRLA, Conjunctiva & lids normal, EOMI; Negative: Sclera icteric ENT Exam: Positive: Atraumatic, Mucous membr. moist/pink Neck Exam: Positive: Supple Chest Exam: Positive: Other (with basilar crackles at the bases but no wheezing) Heart Exam: Positive: Rate Normal, Normal S1, Normal S2 Telemetry: Positive: No significant arrhythmia Abdomen Exam: Positive: Soft, Other (audible. Scattered rhonchi bilaterally on deep inspiration but no wheezing, no rales) Male Exam: Positive: Normal Genital Exam Extremity Exam: Positive: Other (tenderness right hip on palpation) Skin Exam: Positive: Nl turgor and temperature Neuro Exam: Positive: Normal Gait, Normal Speech, Cranial Nerves 3-12 NL, Reflexes 2+ Psych Exam: Positive: Mental status NL, Mood NL, Oriented x 3 Assessment /Plan Assessment 1. R intertrochanteric hip fracture s/p intramedullary femur nailing - PT/OT as tolerated. - pain control prn. - TITA when bed available. 2. COPD exacerbation - continue prednisone, nebulizer treatments. - continue advair. 3. hyperlipidemia - continue statin. 4. depression - continue seroquel, zoloft. Plan/VTE VTE Prophylaxis Ordered?: Yes VS, I&O, 24H, Fishbone Vital Signs/I&O Vital Signs Date Time Temp Pulse Resp B/P (MAP) Pulse Ox O2 Delivery O2 Flow Rate FiO2 09/06/19 05:47 98.1 77 16 124/68 (86) Room Air 09/05/19 20:00 94 09/04/19 08:00 3.0 I&O- Last 24 Hours up to 6 AM 09/06/19 05:59 Intake Total 2340 ml Output Total 2100 ml Balance 240 ml ZBIGNIEW SUAREZ MD Sep 06, 2019 08:38
[2019-09-06 14:00] VITALS: BP 123/65
[2019-09-06] MEDS: ROSUVASTATIN 10 MG TAB (CRESTOR) PO SCH (21:37)
[2019-09-06] MEDS: QUEtiapine FUMARATE 25 MG TAB PO SCH (21:37)
[2019-09-06 22:00] VITALS: BP 119/64
[2019-09-07] MEDS: IPRATROPIUM 0.5MG/ALBUTEROL 2.5MG INH SOL UD 3ML (DUONEB)(J7620) NEB SCH ×4 (00:27→19:49)
[2019-09-07] MEDS: ACETAMINOPHEN 500 MG TAB PO SCH ×3 (05:52→21:07)
[2019-09-07 06:00] VITALS: BP 108/61
[2019-09-07] MEDS: DOCUSATE SODIUM 100 MG CAP PO SCH ×2 (07:21→21:07)
[2019-09-07] MEDS: CLOPIDOGREL 75 MG TAB PO SCH (08:57)
[2019-09-07] MEDS: GABAPENTIN 300 MG CAP PO SCH ×3 (08:57→21:08)
[2019-09-07] MEDS: SERTRALINE HCL 50 MG TAB PO SCH (08:57)
[2019-09-07] MEDS: PANTOPRAZOLE 40MG TAB (PROTONIX) PO SCH (08:57)
[2019-09-07] MEDS: MIRALAX *UNIT DOSE* 17GM PACKET PO SCH (08:57)
[2019-09-07] MEDS: TORSEMIDE 10 MG TABLET PO SCH (08:57)
[2019-09-07] MEDS: FLUTICASONE HFA 110 MCG 12 GM INHALER (FLOVENT) INH SCH ×2 (09:00→19:49)
--- NOTE | 2019-09-07 09:01 | IPNPDOC ---
Subjective Date Seen The patient was seen on 09/07/19. Subjective Chief Complaint/HPI seen and examined, no specific complaints, eating and sleeping well, denies fever/chills, sob, cp/pressure, n/v/d. General: Reports: Normal Appetite; Denies: Chills, Night Sweats, Fatigue, Malaise Constitutional: Denies: Chills, Fever, Night Sweats Eyes: Denies: Pain, Vision change ENT: Denies: Head Aches, Ear Pain, Dysphagia Skin: Denies: Rash, Lesions, Breakdown Pulmonary: Denies: Dyspnea, Cough Cardiovascular: Denies: Chest Pain, Palpitations, Orthopnea, Paroxysmal Noc. Dyspnea, Lt Headedness Gastrointestinal: Denies: Nausea, Vomiting, Abdominal Pain, Diarrhea, Constipation Genitourinary: Denies: Dysuria, Frequency, Incontinence, Retention Hematologic: Denies: Bruising, Bleeding Excessively Musculoskeletal: Denies: Neck Pain, Back Pain, Joint Pain, Muscle Pain, Spasms Neurological: Denies: Weakness, Numbness, Change in speech, Confusion Psych: Reports: Mood Normal; Denies: Depression, Memory Issues Objective Physical Examination General Exam: Positive: Alert, No Acute Distress Eye Exam: Positive: PERRLA, Conjunctiva & lids normal, EOMI; Negative: Sclera icteric ENT Exam: Positive: Atraumatic, Mucous membr. moist/pink Neck Exam: Positive: Supple Chest Exam: Positive: Other (with basilar crackles at the bases but no wheezing) Heart Exam: Positive: Rate Normal, Normal S1, Normal S2 Telemetry: Positive: No significant arrhythmia Abdomen Exam: Positive: Soft, Other (audible. Scattered rhonchi bilaterally on deep inspiration but no wheezing, no rales) Male Exam: Positive: Normal Genital Exam Extremity Exam: Positive: Other (tenderness right hip on palpation) Skin Exam: Positive: Nl turgor and temperature Neuro Exam: Positive: Normal Gait, Normal Speech, Cranial Nerves 3-12 NL, Reflexes 2+ Psych Exam: Positive: Mental status NL, Mood NL, Oriented x 3 Assessment /Plan Assessment 1. R intertrochanteric hip fracture s/p intramedullary femur nailing - PT/OT as tolerated. - pain control prn. - TITA when bed available. 2. COPD exacerbation - continue prednisone, nebulizer treatments. - continue advair. 3. hyperlipidemia - continue statin. 4. depression - continue seroquel, zoloft. Plan/VTE VTE Prophylaxis Ordered?: Yes VS, I&O, 24H, Fishbone Vital Signs/I&O Vital Signs Date Time Temp Pulse Resp B/P (MAP) Pulse Ox O2 Delivery O2 Flow Rate FiO2 09/07/19 06:00 98.0 74 18 108/61 (77) 96 Room Air 09/04/19 08:00 3.0 I&O- Last 24 Hours up to 6 AM 09/07/19 06:00 Intake Total 1480 ml Output Total 1750 ml Balance -270 ml ZBIGNIEW SUAREZ MD Sep 07, 2019 09:01
[2019-09-07] MEDS: traMADol 50 MG TAB PO PRN (11:59)
[2019-09-07 15:19] VITALS: BP 108/61
[2019-09-07] MEDS: ROSUVASTATIN 10 MG TAB (CRESTOR) PO SCH (21:07)
[2019-09-07] MEDS: QUEtiapine FUMARATE 25 MG TAB PO SCH (21:08)
[2019-09-07 22:00] VITALS: BP 115/66
[2019-09-08] MEDS: IPRATROPIUM 0.5MG/ALBUTEROL 2.5MG INH SOL UD 3ML (DUONEB)(J7620) NEB SCH ×2 (02:51→08:20)
[2019-09-08] MEDS: ACETAMINOPHEN 500 MG TAB PO SCH (05:25)
[2019-09-08 06:00] VITALS: BP 122/62
[2019-09-08 06:18] LABS: HEMATOCRIT 33.8 % (42.0-52.0); HEMOGLOBIN 10.6 g/dl (13.5-17.5); MEAN CORPUSCULAR HEMOGLOBIN 31.8 pg (27.0-33.0); MEAN CORPUSCULAR HGB CONC 31.4 g/dl (32.0-36.5); MEAN CORPUSCULAR VOLUME 101.5 fl (80.0-96.0); PLATELET COUNT, AUTOMATED 212 10^3/uL (150-450); RED BLOOD COUNT 3.33 10^6/uL (4.30-6.10); WHITE BLOOD COUNT 9.8 10^3/uL (4.0-10.0)
[2019-09-08 06:30] LABS: BLOOD UREA NITROGEN 15 MG/DL (7-18); CALCIUM LEVEL 8.4 MG/DL (8.8-10.2); CARBON DIOXIDE LEVEL 21 MEQ/L (21-32); CHLORIDE LEVEL 110 MEQ/L (98-107); CREATININE FOR GFR 1.11 MG/DL (0.70-1.30); GLOMERULAR FILTRATION RATE > 60.0 (>42); GLUCOSE, FASTING 91 MG/DL (70-100); POTASSIUM SERUM 4.3 MEQ/L (3.5-5.1); SODIUM LEVEL 139 MEQ/L (136-145)
--- NOTE | 2019-09-08 08:51 | REP ---
CHEST X-RAY: Two views. HISTORY: Abnormal breath sounds. COMPARISON STUDY: August 30, 2019. FINDINGS: There is a fiducial marker or surgical clip in the right hilar region and some right perihilar band-like linear fibrosis is seen essentially unchanged from comparison study. There is oligemia in the upper lobes bilaterally particularly on the right consistent with COPD. No new infiltrate is seen. IMPRESSION: No new infiltrate. Chronic fibrosis right perihilar region. Electronically Signed by Duane Lemus MD 09/08/2019 10:59 A
[2019-09-08] MEDS: MIRALAX *UNIT DOSE* 17GM PACKET PO SCH (09:00)
[2019-09-08] MEDS: PANTOPRAZOLE 40MG TAB (PROTONIX) PO SCH (09:19)
[2019-09-08] MEDS: SERTRALINE HCL 50 MG TAB PO SCH (09:19)
[2019-09-08] MEDS: DOCUSATE SODIUM 100 MG CAP PO SCH (09:19)
[2019-09-08] MEDS: GABAPENTIN 300 MG CAP PO SCH (09:19)
[2019-09-08] MEDS: CLOPIDOGREL 75 MG TAB PO SCH (09:19)
[2019-09-08] MEDS: TORSEMIDE 10 MG TABLET PO SCH (09:19)
[2019-09-08] MEDS: FLUTICASONE HFA 110 MCG 12 GM INHALER (FLOVENT) INH SCH (09:23)
--- NOTE | 2019-09-08 16:10 | DS.PDOC ---
Discharge Summary General Date of Admission Aug 23, 2019 at 19:13 Date of Discharge 09/08/2019 Discharge Summary PROCEDURES PERFORMED DURING STAY: Right intramedullary femur nailing on 08/28/[address] Loy Wiley ADMITTING DIAGNOSES / DISCHARGE DIAGNOSES: R intertrochanteric hip fracture s/p intramedullary femur nailing COPD exacerbation DLP Depression DVT prophylaxis COMPLICATIONS/CHIEF COMPLAINT: Hip Fx, Right. HISTORY OF PRESENT ILLNESS: Patient is a 73-year-old male with a past medical history of chronic coronary disease, COPD, depression, nephrolithiasis, hypertension, CKD3, Squa mouse cell lung cancer, history of right pneumothorax and PVD who presented to the emergency room after sustaining a fall. In emergency room, patient was found to have a right hip fracture and was admitted to hospitalist service for further evaluation and treatment. Orthopedic surgery was called on consultation. HOSPITAL COURSE: R intertrochanteric hip fracture s/p intramedullary femur nailing on 08/28/2019 - PT/OT as tolerated. - c/w PT and OT at subacute rehabilitation site - Pain control as ordered s/p Acute COPD exacerbation - No evidence of exacerbation - c/w inhaled therapy as ordered - s/p Prednisone DLP - c/w Rosuvastatin Depression - c/w Seroquel and Zoloft DVT prophylaxis DISCHARGE MEDICATIONS: Please see below. ALLERGIES: Please see below. PHYSICAL EXAMINATION ON DISCHARGE: Vitals (See below) General: Lying in bed, no acute distress, comfortable, AAOx3 HEENT: NC, AT CVS: + S1S2 Lungs: Fair air entry b/l, -w/r/r Abdomen: Soft, ND, NT Extremities: - Edema, - Calf tenderness LABORATORY DATA: Please see below. ACTIVITY: [As tolerated]. DISCHARGE PLAN: Follow-up with primary care provider and Dr. Wiley within 7 days Remain compliant with treatment plan and medications Return to the ER if you experience any problems DISPOSITION: [facility]. DISCHARGE CONDITION: [Stable]. TIME SPENT ON DISCHARGE: 35 minutes Vital Signs/I&Os Vital Signs Date Time Temp Pulse Resp B/P (MAP) Pulse Ox O2 Delivery O2 Flow Rate FiO2 09/08/19 06:00 97.5 68 18 122/62 (82) 93 Room Air 09/04/19 08:00 3.0 I&O- Last 24 Hours up to 6 AM 09/08/19 06:00 Intake Total 660 ml Output Total 600 ml Balance 60 ml Laboratory Data Labs 24H Laboratory Tests 2 09/08/19 05:39: Nucleated Red Blood Cells % (auto) 0.0, Anion Gap 8, Glomerular Filtration Rate > 60.0, Calcium Level 8.4L CBC/BMP Laboratory Tests 09/08/19 05:39 Discharge Medications Scheduled Acetaminophen (Tylenol Extra Strength) 500 Mg Tablet, 1,000 MG PO Q8H Clopidogrel Bisulfate (Clopidogrel) 75 Mg Tab, 75 MG PO DAILY, (Reported) Gabapentin (Gabapentin) 300 Mg Cap, 300 MG PO TID, (Reported) Rosuvastatin Calcium (Crestor) 40 Mg Tab, 40 MG PO QHS, (Reported) Sertraline Hcl (Sertraline HCl) 50 Mg Tab, 50 MG PO DAILY, (Reported) Torsemide (Torsemide) 20 Mg Tab, 10 MG PO DAILY, (Reported) TAKE 20MG IF WEIGHT GAIN >4LBS Scheduled PRN Albuterol Sulfate (Albuterol Sulfate) 2.5 Mg/0.5 Ml Neb, 2.5 MG INH QID PRN for SHORTNESS OF BREATH, (Reported) Tramadol HCl (Tramadol HCl) 50 Mg Tablet, 1-2 TAB PO Q4H PRN for PAIN Allergies Coded Allergies: No Known Allergies (Verified , 08/23/19) JOE SUAREZ MD Sep 08, 2019 16:09
== END 2019-09-08 11:10 | DRG 481 ==
LOC: M ED 16:58 → EDBD 16:58 → M ED INP 19:13 → ENRESERV 19:31 → M MSPAV 20:45 → M MS5PR 08-24 18:35
PROVIDERS: ADMIT Internal Medicine; ATTEND Internal Medicine
PROC: 0QS606Z Reposition Right Upper Femur with Intramedullary Internal Fixation Device, Open Approach (ICD-10-PCS; principal; 2019-08-29)
DX: S72.141A Displaced intertrochanteric fracture of right femur, initial encounter for closed fracture (principal); J44.1 Chronic obstructive pulmonary disease with (acute) exacerbation; C34.90 Malignant neoplasm of unspecified part of unspecified bronchus or lung; I25.10 Atherosclerotic heart disease of native coronary artery without angina pectoris; F32.9 Major depressive disorder, single episode, unspecified; I12.9 Hypertensive chronic kidney disease with stage 1 through stage 4 chronic kidney disease, or unspecified chronic kidney disease; N18.3 Chronic kidney disease, stage 3 (moderate); I73.9 Peripheral vascular disease, unspecified; Z90.49 Acquired absence of other specified parts of digestive tract; Z87.891 Personal history of nicotine dependence; Z87.81 Personal history of (healed) traumatic fracture; Z79.82 Long term (current) use of aspirin; Z79.899 Other long term (current) drug therapy; W01.0XXA Fall on same level from slipping, tripping and stumbling without subsequent striking against object, initial encounter; Y92.009 Unspecified place in unspecified non-institutional (private) residence as the place of occurrence of the external cause; Z99.81 Dependence on supplemental oxygen; Z79.01 Long term (current) use of anticoagulants; M81.0 Age-related osteoporosis without current pathological fracture; E78.5 Hyperlipidemia, unspecified

== ENCOUNTER → 2019-09-17 | Outpatient (REF) ==
[~2019-09-17] MED LIST changes: +ACET-897 PO; +TRAM50TA2 PO
[2019-09-17 09:11] LABS: HEMATOCRIT 35.9 % (42.0-52.0); HEMOGLOBIN 11.4 g/dl (13.5-17.5); MEAN CORPUSCULAR HEMOGLOBIN 31.6 pg (27.0-33.0); MEAN CORPUSCULAR HGB CONC 31.8 g/dl (32.0-36.5); MEAN CORPUSCULAR VOLUME 99.4 fl (80.0-96.0); PLATELET COUNT, AUTOMATED 204 10^3/uL (150-450); RED BLOOD COUNT 3.61 10^6/uL (4.30-6.10); WHITE BLOOD COUNT 6.8 10^3/uL (4.0-10.0)
[2019-09-17 09:29] LABS: BLOOD UREA NITROGEN 19 MG/DL (7-18); CARBON DIOXIDE LEVEL 25 MEQ/L (21-32); CHLORIDE LEVEL 112 MEQ/L (98-107); CREATININE FOR GFR 1.01 MG/DL (0.70-1.30); GLOMERULAR FILTRATION RATE > 60.0 (>42); GLUCOSE, FASTING 84 MG/DL (70-100); POTASSIUM SERUM 3.6 MEQ/L (3.5-5.1); SODIUM LEVEL 144 MEQ/L (136-145)
== END ==
LOC: SKLAB5 07:51
PROVIDERS: ATTEND Internal Medicine
DX: D64.9 Anemia, unspecified (principal); I25.10 Atherosclerotic heart disease of native coronary artery without angina pectoris; R60.9 Edema, unspecified

== ENCOUNTER → 2019-09-24 | Outpatient (REF) ==
[2019-09-24 09:11] LABS: HEMATOCRIT 40.2 % (42.0-52.0); HEMOGLOBIN 12.6 g/dl (13.5-17.5); MEAN CORPUSCULAR HEMOGLOBIN 31.7 pg (27.0-33.0); MEAN CORPUSCULAR HGB CONC 31.3 g/dl (32.0-36.5); PLATELET COUNT, AUTOMATED 222 10^3/uL (150-450); RED BLOOD COUNT 3.98 10^6/uL (4.30-6.10); WHITE BLOOD COUNT 8.6 10^3/uL (4.0-10.0)
[2019-09-24 09:21] LABS: BLOOD UREA NITROGEN 19 MG/DL (7-18); CALCIUM LEVEL 9.1 MG/DL (8.8-10.2); CARBON DIOXIDE LEVEL 26 MEQ/L (21-32); CHLORIDE LEVEL 107 MEQ/L (98-107); CREATININE FOR GFR 1.11 MG/DL (0.70-1.30); GLOMERULAR FILTRATION RATE > 60.0 (>42); GLUCOSE, FASTING 173 MG/DL (70-100); POTASSIUM SERUM 3.6 MEQ/L (3.5-5.1); SODIUM LEVEL 140 MEQ/L (136-145)
== END ==
LOC: SKLAB5 11:28
PROVIDERS: ATTEND Internal Medicine
DX: N18.9 Chronic kidney disease, unspecified (principal); I25.10 Atherosclerotic heart disease of native coronary artery without angina pectoris; R60.9 Edema, unspecified

== ENCOUNTER → 2019-10-01 | Outpatient (REF) ==
[2019-10-01 08:56] LABS: HEMATOCRIT 38.2 % (42.0-52.0); HEMOGLOBIN 12.3 g/dl (13.5-17.5); MEAN CORPUSCULAR HEMOGLOBIN 31.9 pg (27.0-33.0); MEAN CORPUSCULAR HGB CONC 32.2 g/dl (32.0-36.5); PLATELET COUNT, AUTOMATED 193 10^3/uL (150-450); RED BLOOD COUNT 3.86 10^6/uL (4.30-6.10); WHITE BLOOD COUNT 10.6 10^3/uL (4.0-10.0)
== END ==
LOC: SKLAB5 07:50
PROVIDERS: ATTEND Internal Medicine
DX: N18.9 Chronic kidney disease, unspecified (principal); I25.10 Atherosclerotic heart disease of native coronary artery without angina pectoris

== ENCOUNTER → 2019-10-16 | Outpatient (REF) | payer MEDICARE, MEDICAID ==
--- NOTE | 2019-10-16 12:44 | REP ---
CHEST, TWO VIEWS: Two views of the chest are performed and compared to a prior study of . There is mild cardiomegaly unchanged. There is calcification and tortuosity of the thoracic aorta. The mediastinal silhouette is unchanged. There are scattered fibrotic scarring on the right, which appear stable. No definite superimposed acute infiltrate is seen. There is mild diffuse degenerative change of the spine. IMPRESSION: Stable chronic fibrotic changes. No evidence of superimposed acute infiltrate. Electronically Signed by Bonifacio Braswell MD 10/16/2019 12:52 P
[2019-10-16 13:04] LABS: HEMOGLOBIN 14.2 g/dl (13.5-17.5); MEAN CORPUSCULAR HEMOGLOBIN 31.2 pg (27.0-33.0); MEAN CORPUSCULAR HGB CONC 31.6 g/dl (32.0-36.5); MEAN CORPUSCULAR VOLUME 98.9 fl (80.0-96.0); PLATELET COUNT, AUTOMATED 183 10^3/uL (150-450); RED BLOOD COUNT 4.55 10^6/uL (4.30-6.10); WHITE BLOOD COUNT 12.5 10^3/uL (4.0-10.0)
[2019-10-16 13:32] LABS: BLOOD UREA NITROGEN 18 MG/DL (7-18); CARBON DIOXIDE LEVEL 29 MEQ/L (21-32); CHLORIDE LEVEL 107 MEQ/L (98-107); CREATININE FOR GFR 0.98 MG/DL (0.70-1.30); GLOMERULAR FILTRATION RATE > 60.0 (>42); GLUCOSE, FASTING 102 MG/DL (70-100); POTASSIUM SERUM 4.3 MEQ/L (3.5-5.1); SODIUM LEVEL 142 MEQ/L (136-145); TROPONIN I < 0.02 NG/ML (< 0.10)
== END ==
LOC: SKLAB5 11:50
PROVIDERS: ATTEND Internal Medicine
DX: R05 Cough (principal)

== ENCOUNTER → 2019-10-16 | Outpatient (CLI) | payer MEDICARE, MEDICAID ==
--- NOTE | 2019-10-16 15:12 | ECGEPIP ---
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
== END ==
LOC: M LAB 12:24
PROVIDERS: ATTEND Internal Medicine
DX: R05 Cough (principal); R06.02 Shortness of breath; J44.9 Chronic obstructive pulmonary disease, unspecified

== ENCOUNTER → 2019-10-17 | Outpatient (REF) | payer MEDICARE, MEDICAID ==
[2019-10-17 06:53] LABS: HEMATOCRIT 37.6 % (42.0-52.0); MEAN CORPUSCULAR HGB CONC 31.9 g/dl (32.0-36.5); MEAN CORPUSCULAR VOLUME 97.2 fl (80.0-96.0); PLATELET COUNT, AUTOMATED 149 10^3/uL (150-450); RED BLOOD COUNT 3.87 10^6/uL (4.30-6.10); WHITE BLOOD COUNT 10.4 10^3/uL (4.0-10.0)
== END ==
LOC: SKLAB5 07:27
PROVIDERS: ATTEND Internal Medicine
DX: J44.9 Chronic obstructive pulmonary disease, unspecified (principal)

== ENCOUNTER → 2019-10-19 | Outpatient (REF) | payer MEDICARE, MEDICAID ==
[2019-10-19 10:44] LABS: HEMATOCRIT 39.8 % (42.0-52.0); HEMOGLOBIN 12.4 g/dl (13.5-17.5); MEAN CORPUSCULAR HEMOGLOBIN 30.5 pg (27.0-33.0); MEAN CORPUSCULAR HGB CONC 31.2 g/dl (32.0-36.5); MEAN CORPUSCULAR VOLUME 97.8 fl (80.0-96.0); PLATELET COUNT, AUTOMATED 175 10^3/uL (150-450); RED BLOOD COUNT 4.07 10^6/uL (4.30-6.10); WHITE BLOOD COUNT 10.2 10^3/uL (4.0-10.0)
== END ==
LOC: SKLAB5 07:25
PROVIDERS: ATTEND Internal Medicine
DX: J44.9 Chronic obstructive pulmonary disease, unspecified (principal)

== ENCOUNTER → 2019-11-02 | Outpatient (REF) | payer MEDICARE, MEDICAID ==
[2019-11-02 07:51] LABS: BLOOD UREA NITROGEN 23 MG/DL (7-18); CALCIUM LEVEL 8.6 MG/DL (8.8-10.2); CARBON DIOXIDE LEVEL 28 MEQ/L (21-32); CHLORIDE LEVEL 108 MEQ/L (98-107); CREATININE FOR GFR 1.17 MG/DL (0.70-1.30); GLOMERULAR FILTRATION RATE > 60.0 (>42); GLUCOSE, FASTING 84 MG/DL (70-100); NT-PRO BNP 152 PG/ML (<450); SODIUM LEVEL 142 MEQ/L (136-145)
== END ==
LOC: SKLAB5 07:36
PROVIDERS: ATTEND Internal Medicine
DX: R60.9 Edema, unspecified (principal); I73.9 Peripheral vascular disease, unspecified; I25.10 Atherosclerotic heart disease of native coronary artery without angina pectoris; Z79.01 Long term (current) use of anticoagulants; N18.9 Chronic kidney disease, unspecified; J44.9 Chronic obstructive pulmonary disease, unspecified; D64.9 Anemia, unspecified; I87.2 Venous insufficiency (chronic) (peripheral)

== ENCOUNTER → 2019-11-21 | Outpatient (CLI) | payer MEDICARE, MEDICAID ==
--- NOTE | 2019-11-22 07:34 | REP ---
REASON FOR EXAM: Coughing and wheezing. COMPARISON: Multiple, the latest 10/16/2019. There is cardiomegaly, status quo. There is interstitial fibrotic change, status quo. There is an irregular right upper lobe opacity which is stable and has been stable in appearance since 06/16/2019. No new abnormal opacities have developed. The pleural angles are again seen to be sharp. The osseous structures are stable and intact. IMPRESSION: Stable-appearing chronic changes. Correlate clinically to rule out the possibility of acute disease superimposed upon chronic change and, if necessary, obtain CT of the chest with contrast. Electronically Signed by Alec Wolf DO 11/22/2019 08:39 A
== END ==
LOC: M RAD 14:49
PROVIDERS: ATTEND Family Medicine
DX: I51.7 Cardiomegaly (principal); R91.8 Other nonspecific abnormal finding of lung field; R06.2 Wheezing; R05 Cough; R09.81 Nasal congestion

== ENCOUNTER → 2019-11-21 | Outpatient (REF) | payer MEDICARE, MEDICAID | LOC: SKLAB5 18:04 | PROVIDERS: ATTEND Internal Medicine | DX: R05 Cough (principal); R06.2 Wheezing; R09.89 Other specified symptoms and signs involving the circulatory and respiratory systems ==

== ENCOUNTER → 2019-11-25 | Outpatient (REF) | LOC: SKLAB5 08:51 | PROVIDERS: ATTEND Internal Medicine | DX: Z03.818 Encounter for observation for suspected exposure to other biological agents ruled out (principal) ==

== ENCOUNTER → 2020-02-12 | Outpatient (CLI) | payer MEDICARE, MEDICAID | LOC: M RAD 13:30 | PROVIDERS: ATTEND Internal Medicine Medical Oncology | DX: Z53.9 Procedure and treatment not carried out, unspecified reason (principal) ==

== ENCOUNTER → 2020-10-11 | Outpatient (CLI) | payer MEDICARE, MEDICAID ==
[~2020-10-11] MED LIST changes: +GABA-282 PO; -GABA-843 PO
--- NOTE | 2020-10-11 11:21 | REP ---
INDICATION: COPD UNSPECIFIED. COMPARISON: CT 06/30/2019, AP chest 11/21/2019 TECHNIQUE: Noncontrast CT with coronal and sagittal reconstructions and coronal MIP reformats presented in lung window setting. FINDINGS: Again noted in the right upper lobe is curvilinear zone of soft tissue density most consistent with fibrosis but some thickening of the zone of the tissue is present compared to the previous study I could not exclude a superimposed mass versus progressive fibrosis. The zone of the irregular thickening has lobulated margins and measures 4.5 x 2.5 x 1.3 cm. There are curvilinear fibrotic changes to the hilum and chest wall in the right upper lung zone. There are couple of tiny metallic clips in the right suprahilar region. Advanced bullous emphysematous changes noted in both lungs particularly in the upper lobes. Minor apical scarring present. There is some mild cylindrical bronchiectatic change in subpleural fibrotic change right greater than left there are some blebs and bullous emphysematous changes in the lower lung zones left greater than right. No pleural effusion or dense consolidation with air bronchograms. Some volume loss in the right hemithorax is noted. Some peripheral fibrotic changes are noted posteriorly and laterally in the right lower lung zone some minor dependent atelectatic changes and or fibrosis posteriorly in both deep sulci. There is atherosclerotic calcification of the ascending arch and descending aorta as before. Ascending aorta has a maximum AP diameter 4.6 cm, unchanged. The right paratracheal, precarinal, AP window, prevascular and subcarinal nodes are again seen unchanged hilar contours without gross change and small subcentimeter nodes. This all is stable. No cardiomegaly pericardial thickening or effusion. See no hiatal hernia. The bone windows show the sternum, manubrium, medial clavicular heads, the visualized portions of scapulae, humeral heads and ribs to be grossly unremarkable. There are some coronary artery calcifications also noted. No compression deformity or destructive lesions in the spine. The upper abdomen, that portion of liver, spleen and pancreas seen were unremarkable gallbladder absent with clips in the fossa. Adrenal glands unremarkable. Upper pole the right kidney is unchanged with small peripheral cyst anteriorly no hiatal hernia. IMPRESSION: 1. Curvilinear density in the right upper lobe as on the previous study but increased soft tissue thickness and somewhat lobulated contour and area 4.5 x 2.5 x 1.3 cm. Whether this is progressive fibrotic change, post radiation change or superimposed lung tumor is uncertain. There is no pathologic sized mediastinal or hilar adenopathy or other acute lung lesion identified. 2. Advanced bullous emphysematous changes COPD, cylindrical bronchiectasis, subpleural fibrotic change and some dependent atelectatic change posterior lower lung zones. 3. No pathologic sized mediastinal or hilar adenopathy. There is ectasia of the ascending aorta up to 4.6 cm unchanged and some coronary artery calcifications and scattered calcifications throughout the aorta. 4. Prior cholecystectomy. Upper abdomen without any definite acute finding. 5. No acute bony findings. <Electronically signed by Thai Leary > 10/11/20 [id number]
== END ==
LOC: M RAD 10:12
PROVIDERS: ATTEND Internal Medicine Pulmonary Disease
DX: J44.9 Chronic obstructive pulmonary disease, unspecified (principal); Z94.9 Transplanted organ and tissue status, unspecified

== ENCOUNTER 2020-11-21 12:42 | Emergency (ER) | payer MEDICARE, MEDICAID ==
[~2020-11-21] VITALS: Ht 170.2 cm; Wt 77.3 kg
[2020-11-21] MEDS ORDERED: ALBU8.5H (13:08)
[2020-11-21] MEDS ORDERED: LOSA25TA14 (13:08)
--- NOTE | 2020-11-21 14:45 | REP ---
INDICATION: DYSPNEA/COUGH COMPARISON: 11/21/2019, 10/16/2027. TECHNIQUE: PA/Lateral FINDINGS: Upper lobe opacity is stable, with a metallic clip in the more medial portion. There is patchy atelectasis or infiltrate in the lingula. There is mild cardiomegaly. There is calcification and ectasia of the thoracic aorta. The mediastinal silhouette is unchanged. There are mild degenerative changes of the spine. IMPRESSION: Atelectasis or infiltrate in the lingula. <Electronically signed by Bonifacio Braswell > 11/21/20 [id number]
--- NOTE | 2020-11-21 14:52 | REP ---
INDICATION: DYSPNEA/COUGH; fall with low back; right hip pain. COMPARISON: Recent chest radiographs including 11/21/2019 and 10/16/2019. TECHNIQUE: Five views lumbosacral spine. FINDINGS: There is moderate compression of the T12 vertebral body which appears to be an acute finding. The lumbar vertebral bodies are normal in height with no compression fracture. There is normal alignment and lumbar lordosis. There is moderate diffuse spurring. There is slight disc space narrowing and subchondral sclerosis at all levels, with vacuum phenomenon noted at L4-5. There is sclerosis and spurring at the posterior facet joints of L5-S1. Posterior elements appear intact. IMPRESSION: Moderate compression of T12 appears to be in acute finding. Otherwise no acute fracture or dislocation. <Electronically signed by Bonifacio Braswell > 11/21/20 [id number]
--- NOTE | 2020-11-21 14:53 | REP ---
INDICATION: DYSPNEA/COUGH; fall with low back; right hip pain. COMPARISON: 08/23/2019. TECHNIQUE: AP pelvis and two views right hip. FINDINGS: There is metallic internal fixation in the proximal femurs bilaterally. There is no acute fracture or dislocation. A stent is seen in the right common iliac artery. There are phleboliths in the pelvis. IMPRESSION: No acute fracture or dislocation. <Electronically signed by Bonifacio Braswell > 11/21/20 [id number]
[2020-11-21 16:03] LABS: BASO # 0.1 10^3/uL (0.0-0.2); BASO % 0.7 % (0.0-1.0); EOS # 0.4 10^3/uL (0.0-0.5); EOS % 4.1 % (0.0-3.0); HEMATOCRIT 40.9 % (42.0-52.0); HEMOGLOBIN 13.1 g/dl (13.5-17.5); LYMPH # 1.8 10^3/uL (1.5-5.0); LYMPH % 20.7 % (24.0-44.0); MEAN CORPUSCULAR HEMOGLOBIN 31.7 pg (27.0-33.0); MONO # 0.8 10^3/uL (0.0-0.8); NEUTROPHILS # 5.4 10^3/uL (1.5-8.5); NEUTROPHILS % 63.7 % (36.0-66.0); PLATELET COUNT, AUTOMATED 172 10^3/uL (150-450); RED BLOOD COUNT 4.13 10^6/uL (4.30-6.10); WHITE BLOOD COUNT 8.4 10^3/uL (4.0-10.0)
[2020-11-21] MEDS ORDERED: FUROSEMIDE 100MG/10ML VIAL (J1940) IV ONE (16:15)
[2020-11-21 16:36] LABS: RSV AMPLIFICATION NEGATIVE (NEGATIVE)
[2020-11-21 16:38] LABS: ALBUMIN 3.2 GM/DL (3.2-5.2); ALT/SGPT 7 U/L (12-78); BILIRUBIN,DIRECT 0.2 MG/DL (0.0-0.2); BILIRUBIN,TOTAL 0.4 MG/DL (0.2-1.0); BLOOD UREA NITROGEN 19 MG/DL (7-18); CALCIUM LEVEL 9.2 MG/DL (8.8-10.2); CARBON DIOXIDE LEVEL 29 MEQ/L (21-32); CHLORIDE LEVEL 108 MEQ/L (98-107); CK-MB VALUE MASS 1.4 NG/ML (<3.6); CPK CREATINE PHOSPHOKINASE 64 U/L (39-308); CREATININE FOR GFR 1.22 MG/DL (0.70-1.30); GLOMERULAR FILTRATION RATE > 60.0 (>42); GLUCOSE, FASTING 77 MG/DL (70-100); MB/CK RELATIVE INDEX 2.19 (< OR =4); NT-PRO BNP 119 PG/ML (<450); POTASSIUM SERUM 4.6 MEQ/L (3.5-5.1); SODIUM LEVEL 140 MEQ/L (136-145); THYROXINE (T4) 6.5 UG/DL (4.5-12.0); TOTAL PROTEIN 6.6 GM/DL (6.4-8.2); TROPONIN I < 0.02 NG/ML (< 0.10)
[2020-11-21 17:00] VITALS: BP 144/67
[2020-11-21] MEDS ORDERED: ZITHTAB PO (17:10)
--- NOTE | 2020-11-21 20:13 | ECGEPIP ---
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
== END 2020-11-21 17:49 | disposition home or self-care (01) ==
LOC: M ED 12:42
DX: S22.080A Wedge compression fracture of T11-T12 vertebra, initial encounter for closed fracture (principal); J98.11 Atelectasis; I77.810 Thoracic aortic ectasia; Z95.820 Peripheral vascular angioplasty status with implants and grafts; I87.8 Other specified disorders of veins; W01.0XXA Fall on same level from slipping, tripping and stumbling without subsequent striking against object, initial encounter; Y92.009 Unspecified place in unspecified non-institutional (private) residence as the place of occurrence of the external cause; Y93.9 Activity, unspecified; Y99.9 Unspecified external cause status; I25.10 Atherosclerotic heart disease of native coronary artery without angina pectoris; I50.9 Heart failure, unspecified; I10 Essential (primary) hypertension; Z87.891 Personal history of nicotine dependence; Z96.642 Presence of left artificial hip joint; Z79.899 Other long term (current) drug therapy
CPT/HCPCS: 71046; 72110; 73502; 80048; 80076; 82550; 82553; 83605; 83880; 84436; 84443; 84484; 85025; 87040; 87631; 93005; 93041; 94760; 96374; 99285; J1940

== ENCOUNTER 2020-12-03 22:56 | Inpatient (IN) | payer MEDICARE, MEDICAID ==
[~2020-12-03] VITALS: Ht 175.3 cm; Wt 88.2 kg
[~2020-12-03 22:56] MED LIST changes: +ALBU8.5H INH; +ZITHTAB PO
[2020-12-04] MEDS ORDERED: CYCLOBENZAPRINE 5MG TABLET PO ONE
[2020-12-04] MEDS ORDERED: ACETAMINOPHEN TAB 650MG DOSE (2X325MG) PO ONE
--- NOTE | 2020-12-04 03:49 | REPVR ---
PROCEDURE INFORMATION: Exam: XR Chest Exam date and time: 12/04/2020 1:36 AM Age: 75 years old Clinical indication: Other: Fall TECHNIQUE: Imaging protocol: XR of the chest. Views: 1 view. COMPARISON: CT Chest without contrast 10/11/2020 10:35 AM FINDINGS: Lungs: Mild prominence of the right hilum with small surgical clip in the area. There is moderate atelectasis or scar extending into the mid lung with probable bullous change in the right apex. Minimal left base atelectasis or scar. Pleural spaces: Unremarkable. No pleural effusion. No pneumothorax. Heart/Mediastinum: Unremarkable. No cardiomegaly. Bones/joints: Probable old fracture of the lateral right 8th rib. Probable old fractures involving the left 7th and 8th ribs laterally. IMPRESSION: 1. Prominent right hilum with scar extending into the right mid lung and probable bullous change in the right apex. There is minimal left base atelectasis or scar. 2. Old bilateral rib fractures. 3. There has been little change since 10/11/2020. PROCEDURE INFORMATION: Exam: XR Thoracolumbar Spine Exam date and time: 12/04/2020 1:36 AM Age: 75 years old Clinical indication: Other: Fall TECHNIQUE: Imaging protocol: XR of the thoracolumbar spine. Views: 2 views. COMPARISON: CT Chest without contrast 10/11/2020 10:35 AM FINDINGS: Bones/joints: There is wedge configuration of T12 which is similar to the prior study and slight anterior wedge configuration of L1 which is new. Degenerative interspace narrowing throughout the lumbar spine with mild to moderate degenerative spurring. Soft tissues: Unremarkable. IMPRESSION: 1. Moderate wedge compression of T12 which is similar to 10/11/2020. 2. Slight anterior wedge configuration of L1 which is new since the prior study. 3. Degenerative disc changes of the visualized lumbar spine. 4. Otherwise negative thoracolumbar junction. Electronically signed by: Rosalino Ricardo On 12/04/2020 03:48:54 AM
--- NOTE | 2020-12-04 03:55 | REPVR ---
PROCEDURE INFORMATION: Exam: XR Pelvis Exam date and time: 12/04/2020 1:36 AM Age: 75 years old Clinical indication: Other: Fall TECHNIQUE: Imaging protocol: XR pelvis. Views: 1 or 2 view. COMPARISON: CR Hip,AP,LAT to include Pelvis RIGHT 11/21/2020 1:51 PM FINDINGS: Bones/joints: Right femoral medullary vernell with traversing nail extending into the right femoral head. 3 metallic pins extending along the left femoral neck into the head and are unchanged from the prior study. Mild degenerative change in the lower lumbar spine. No interval acute fracture. Soft tissues: Unremarkable. Vasculature: Vascular stent is noted in the right pelvis. IMPRESSION: There has been little change from 11/21/2020. No acute interval fracture. Electronically signed by: Rosalino Ricardo On 12/04/2020 03:55:05 AM
--- NOTE | 2020-12-04 03:57 | REPVR ---
PROCEDURE INFORMATION: Exam: XR Left Knee Exam date and time: 12/04/2020 1:36 AM Age: 75 years old Clinical indication: Other: Fall TECHNIQUE: Imaging protocol: XR Left knee. Views: 1 or 2 views. COMPARISON: [place] Femur 08/23/2019 5:44 PM FINDINGS: Bones/joints: Bipartite patella. No fracture. The joint space is adequately well maintained. No joint effusion. Soft tissues: Normal. IMPRESSION: Negative left knee. PROCEDURE INFORMATION: Exam: XR Left Femur Exam date and time: 12/04/2020 1:36 AM Age: 75 years old Clinical indication: Other: Fall TECHNIQUE: Imaging protocol: XR Left femur. Views: 2 views. COMPARISON: [place] Femur 08/23/2019 5:44 PM FINDINGS: Bones/joints: 3 metallic pins traversing the left femoral neck and extend into the left femoral head. No acute femur fracture. Bipartite patella. Soft tissues: Unremarkable. Vasculature: Vascular stent is noted in the medial mid thigh. IMPRESSION: 1. 3 metallic pins traversing the left femoral neck and into the left femoral head. 2. Otherwise negative left femur. No fracture. Electronically signed by: Rosalino Ricardo On 12/04/2020 03:57:25 AM
--- NOTE | 2020-12-04 03:57 | REPVR ---
PROCEDURE INFORMATION: Exam: XR Left Knee Exam date and time: 12/04/2020 1:36 AM Age: 75 years old Clinical indication: Other: Fall TECHNIQUE: Imaging protocol: XR Left knee. Views: 1 or 2 views. COMPARISON: [place] Femur 08/23/2019 5:44 PM FINDINGS: Bones/joints: Bipartite patella. No fracture. The joint space is adequately well maintained. No joint effusion. Soft tissues: Normal. IMPRESSION: Negative left knee. PROCEDURE INFORMATION: Exam: XR Left Femur Exam date and time: 12/04/2020 1:36 AM Age: 75 years old Clinical indication: Other: Fall TECHNIQUE: Imaging protocol: XR Left femur. Views: 2 views. COMPARISON: [place] Femur 08/23/2019 5:44 PM FINDINGS: Bones/joints: 3 metallic pins traversing the left femoral neck and extend into the left femoral head. No acute femur fracture. Bipartite patella. Soft tissues: Unremarkable. Vasculature: Vascular stent is noted in the medial mid thigh. IMPRESSION: 1. 3 metallic pins traversing the left femoral neck and into the left femoral head. 2. Otherwise negative left femur. No fracture. Electronically signed by: Rosalino Ricardo On 12/04/2020 03:57:25 AM
[2020-12-04] MEDS ORDERED: ACET32TAB PO (04:14)
[2020-12-04] MEDS: ADVAIR HFA 230/21MCG INHALER INH SCH ×2 (08:00→19:43)
[2020-12-04] MEDS: TIOTROPIUM INHALER/CAPSULE (SPIRIVA) INH SCH (08:00)
[2020-12-04 08:02] LABS: RSV AMPLIFICATION NEGATIVE (NEGATIVE)
[2020-12-04] MEDS ORDERED: ASPI81TA26 PO (08:24)
[2020-12-04] MEDS ORDERED: BREO1INH3 INH (08:24)
[2020-12-04] MEDS ORDERED: SPIR12.9 INH (08:24)
[2020-12-04] MEDS ORDERED: SERT50TA29 PO (08:24)
[2020-12-04] MEDS ORDERED: GABA-282 PO (08:24)
[2020-12-04] MEDS ORDERED: POTA4.25 PO (08:24)
[2020-12-04] MEDS ORDERED: LOSARTAN 25 MG TAB PO SCH (09:00)
[2020-12-04 10:30] VITALS: BP 138/77
[2020-12-04 11:02] LABS: BASO % 0.3 % (0.0-1.0); EOS # 0.3 10^3/uL (0.0-0.5); EOS % 2.9 % (0.0-3.0); HEMATOCRIT 38.7 % (42.0-52.0); HEMOGLOBIN 12.7 g/dl (13.5-17.5); MEAN CORPUSCULAR HEMOGLOBIN 31.8 pg (27.0-33.0); MEAN CORPUSCULAR HGB CONC 32.8 g/dl (32.0-36.5); MONO # 0.6 10^3/uL (0.0-0.8); MONO % 6.1 % (2.0-8.0); NEUTROPHILS # 7.3 10^3/uL (1.5-8.5); PLATELET COUNT, AUTOMATED 163 10^3/uL (150-450); RED BLOOD COUNT 3.99 10^6/uL (4.30-6.10); WHITE BLOOD COUNT 9.2 10^3/uL (4.0-10.0)
[2020-12-04 11:37] LABS: ALBUMIN 3.3 GM/DL (3.2-5.2); ALT/SGPT 10 U/L (12-78); BILIRUBIN,TOTAL 1.2 MG/DL (0.2-1.0); BLOOD UREA NITROGEN 15 MG/DL (7-18); CALCIUM LEVEL 8.9 MG/DL (8.8-10.2); CARBON DIOXIDE LEVEL 26 MEQ/L (21-32); CHLORIDE LEVEL 106 MEQ/L (98-107); CREATININE FOR GFR 1.05 MG/DL (0.70-1.30); GLOMERULAR FILTRATION RATE > 60.0 (>42); GLUCOSE, FASTING 112 MG/DL (70-100); POTASSIUM SERUM 3.9 MEQ/L (3.5-5.1); SODIUM LEVEL 138 MEQ/L (136-145); TOTAL PROTEIN 6.8 GM/DL (6.4-8.2)
--- NOTE | 2020-12-04 12:02 | HPEPDOC ---
General Date of Admission December 04, 2020 at 08:31 Date of Service: December 04, 2020 Chief Complaint The patient is a 75-year-old male admitted with a reason for visit of Frequent Falls & Gait Instability. 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 His neighbor called the EMS and he was brought to the ED. Trauma work up in the ED was negative for any acute fractures. Spine xray showed old T 12 compression # and Slight anterior wedge configuration of L1 which is new since the prior study. He had another fall earlier in November when he sustained paddy T12 compression fracture. CXR shows also old bilateral rib fractures. He was admitted for gait instability and recurrent falls. He complained of right lower back pain about 6/10 in intensity, sharp aching worse when he is rolling from side to side. Home Medications Scheduled Aspirin (Aspirin EC) 81 Mg Tablet.dr, 81 MG PO DAILY, (Reported) Clopidogrel Bisulfate (Clopidogrel) 75 Mg Tab, 75 MG PO DAILY, (Reported) Fluticasone/Vilanterol (Breo Ellipta 200-25 Mcg INH) 1 Each Blst.w.dev, 1 PUFF INH DAILY, (Reported) Gabapentin (Gabapentin) 300 Mg Cap, 300 MG PO DAILY, (Reported) Gabapentin (Gabapentin) 300 Mg Capsule, 600 MG PO QHS, (Reported) Losartan Potassium (Losartan Potassium) 25 Mg Tablet, 25 MG PO DAILY, (Reported) Potassium Citrate (Potassium Citrate ER) 15 Meq Tablet.er, 15 MEQ PO BID, (Reported) Rosuvastatin Calcium (Crestor) 40 Mg Tab, 40 MG PO QHS, (Reported) Sertraline HCl (Sertraline HCl) 50 Mg Tablet, 50 MG PO DAILY, (Reported) Tiotropium [place] (Spiriva Respimat) 4 Gm Mist.inhal, 2 PUFFS INH DAILY, (Reported) Torsemide (Torsemide) 20 Mg Tab, 10 MG PO DAILY, (Reported) TAKE 20MG IF WEIGHT GAIN >4LBS Scheduled PRN Acetaminophen (Acetaminophen) 325 Mg Tablet, 2 TAB PO Q8HP PRN for pain Albuterol Sulfate (Albuterol Sulfate) 2.5 Mg/0.5 Ml Neb, 2.5 MG INH QID PRN for SHORTNESS OF BREATH, (Reported) Albuterol Sulfate (Albuterol Sulfate Hfa) 8.5 Gm Hfa.aer.ad, 2 PUFF INH Q4H PRN for SOB/WHEEZING, (Reported) Allergies Coded Allergies: No Known Allergies (Verified , 08/23/19) Past Medical History Medical History 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 Nonsurgical candidate due to severe peripheral vascular disease status post stereotactic body radiation therapy (SBRT) completed 06/26/2017. In January 2019 detected progressive right upper lobe spiculated mass with mediastinal lymph node enlargement. PET neg in 2019 Persistent Curvilinear density in the right upper lobe as on the previous study but increased soft tissue thickness and somewhat lobulated contour and area 4.5 x 2.5 x 1.3 cm. 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 CAD COPD/ emphysema Bronchiectasis. hypertension, CKD3, DLP Depression PAD Neuropathy Nephrolithiasis status post cystoscopy with retrograde pyelogram and basket extraction of stone from the bladder History of right pneumothorax requiring placement of right chest tube Surgical History Cholecystectomy 2005 Status post ventral incisional hernia repair 2005 Status post femoral artery bypass. Appendectomy cystoscopy and basket extraction of stone from bladder 2016 Bronchoscopy 2017 Chest tube 2017 Left femoral neck fracture in 2012 s/p ORIF and percutaneous screws. Right intertrochanteric hip fracture s/p intramedullary femur nailing in aug 2019 Family History Mother had cancer Sister COPD Social History * Smoker: current smoker Alcohol: Denies Drugs: denies A-FIB/CHADSVASC A-FIB History Current/History of A-Fib/PAF?: No Review of Systems Constitutional: Denies: Chills, Fever, Night Sweats Eyes: Denies: Pain, Vision change ENT: Denies: Head Aches, Ear Pain, Dysphagia Pulmonary: Reports: Cough (chronic); Denies: Dyspnea Cardiovascular: Denies: Chest Pain, Palpitations, Orthopnea, Paroxysmal Noc. Dyspnea, Lt Headedness Gastrointestinal: Denies: Nausea, Vomiting, Abdominal Pain, Diarrhea Genitourinary: Denies: Dysuria, Frequency, Incontinence, Retention Musculoskeletal: Reports: Back Pain Physical Examination General Exam: Positive: Alert, Cooperative, No Acute Distress Eye Exam: Positive: PERRLA, Conjunctiva & lids normal, EOMI; Negative: Sclera icteric ENT Exam: Positive: Atraumatic, Mucous membr. moist/pink, Pharynx Normal Neck Exam: Positive: Supple; Negative: JVD, thyromegaly Chest Exam: Positive: Wheezing, Diminished Heart Exam: Positive: Rate Normal, Regular Rhythm, Normal S1, Normal S2; Negative: Murmurs, Rubs Abdomen Exam: Positive: Normal bowel sounds, Soft; Negative: Tenderness, Hepatospenomegaly Extremity Exam: Negative: Clubbing, Cyanosis, Edema Vital Signs Vital Signs Date Time Temp Pulse Resp B/P (MAP) Pulse Ox O2 Delivery O2 Flow Rate FiO2 12/04/20 10:30 98.7 83 16 138/77 (97) 92 Room Air Laboratory Data Labs 24H Laboratory Tests 2 12/04/20 07:20: Coronavirus (COVID-19)(PCR) NEGATIVE, Influenza Type A (RT-PCR) NEGATIVE, Influenza Type B (RT-PCR) NEGATIVE, Respiratory Syncytial Virus (PCR) NEGATIVE Assessment/Plan 75 year old male with PMD of COPD , uses oxygen at night, bronchiectasis, 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 His neighbor called the EMS and he was brought to the ED. Trauma work up in the ED was negative for any acute fractures. Spine xray showed old T 12 compression # and Slight anterior wedge configuration of L1 which is new since the prior study. He had another fall earlier in November when he sustained paddy T12 compression fracture. CXR shows also old bilateral rib fractures. He was admitted for gait instability and recurrent falls. 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 Nonsurgical candidate due to severe peripheral vascular disease status post stereotactic body radiation therapy (SBRT) completed 06/26/2017. Follow-up with oncology had CT chest in September 2020 COPD with chronic respiratory failure. He uses oxygen only at night spiriva , advair in place of breo albuterol prn. Dry eyes Artificial tears Plan / VTE VTE Prophylaxis Ordered?: Yes JUNE LEWIS MD December 04, 2020 11:05
[2020-12-04] MEDS ORDERED: ALBUTEROL SULFATE 2.5 MG/0.5 ML INH NEB SOLN INH PRN (12:05)
[2020-12-04 14:00] VITALS: BP 140/70
[2020-12-04 14:05] VITALS: BP 142/79
[2020-12-04] MEDS: POLYVINYL ALCOHOL OPHTH SOLN 15 ML(LIQUITEARS) OU PRN ×2 (14:26→20:25)
[2020-12-04 14:29] VITALS: BP 141/70
[2020-12-04] MEDS: GABAPENTIN 300 MG CAP PO SCH ×2 (14:29→20:21)
[2020-12-04] MEDS: SERTRALINE HCL 50 MG TAB PO SCH (14:29)
[2020-12-04] MEDS: ASPIRIN 81MG ENTERIC TABLET PO SCH (14:30)
[2020-12-04] MEDS: CLOPIDOGREL 75 MG TAB PO SCH (14:30)
[2020-12-04] MEDS: ROSUVASTATIN 10 MG TAB (CRESTOR) PO SCH (20:21)
[2020-12-04 22:00] VITALS: BP 101/58
[2020-12-05 05:48] VITALS: BP 98/56
[2020-12-05] MEDS ORDERED: MOM 30ML SUSPENSION UDC PO PRN (06:50)
[2020-12-05] MEDS: ADVAIR HFA 230/21MCG INHALER INH SCH ×2 (07:28→20:00)
[2020-12-05] MEDS: TIOTROPIUM INHALER/CAPSULE (SPIRIVA) INH SCH (07:28)
[2020-12-05 07:37] LABS: BASO % 0.4 % (0.0-1.0); EOS # 0.3 10^3/uL (0.0-0.5); HEMATOCRIT 36.9 % (42.0-52.0); HEMOGLOBIN 11.9 g/dl (13.5-17.5); LYMPH # 1.2 10^3/uL (1.5-5.0); LYMPH % 15.6 % (24.0-44.0); MEAN CORPUSCULAR HEMOGLOBIN 31.7 pg (27.0-33.0); MEAN CORPUSCULAR HGB CONC 32.2 g/dl (32.0-36.5); MEAN CORPUSCULAR VOLUME 98.4 fl (80.0-96.0); MONO # 0.5 10^3/uL (0.0-0.8); MONO % 6.9 % (2.0-8.0); NEUTROPHILS # 5.6 10^3/uL (1.5-8.5); NEUTROPHILS % 72.3 % (36.0-66.0); PLATELET COUNT, AUTOMATED 159 10^3/uL (150-450); RED BLOOD COUNT 3.75 10^6/uL (4.30-6.10); WHITE BLOOD COUNT 7.7 10^3/uL (4.0-10.0)
[2020-12-05 08:08] LABS: CALCIUM LEVEL 8.4 MG/DL (8.8-10.2); CREATININE FOR GFR 1.75 MG/DL (0.70-1.30); GLOMERULAR FILTRATION RATE 40.4 (>42); POTASSIUM SERUM 3.5 MEQ/L (3.5-5.1)
[2020-12-05] MEDS: CLOPIDOGREL 75 MG TAB PO SCH (08:19)
[2020-12-05] MEDS: ASPIRIN 81MG ENTERIC TABLET PO SCH (08:19)
[2020-12-05] MEDS: GABAPENTIN 300 MG CAP PO SCH ×2 (08:19→21:30)
[2020-12-05] MEDS: SERTRALINE HCL 50 MG TAB PO SCH (08:19)
[2020-12-05] MEDS: SENOKOT S TAB PO SCH ×2 (08:19→21:30)
[2020-12-05] MEDS: ENOXAPARIN 40MG/0.4ML SYRINGE (J1650 PER 10MG) SC SCH (08:20)
--- NOTE | 2020-12-05 11:41 | IPNPDOC ---
Subjective Date Seen The patient was seen on 12/05/20. Subjective Chief Complaint/HPI No issues overnight. Was unable to stand with nurses yesterday. have order PT/OT. Objective Physical Examination General Exam: Positive: Alert, Cooperative, No Acute Distress Eye Exam: Positive: PERRLA, Conjunctiva & lids normal, EOMI; Negative: Sclera icteric ENT Exam: Positive: Atraumatic, Mucous membr. 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 His neighbor called the EMS and he was brought to the ED. Trauma work up in the ED was negative for any acute fractures. Spine xray showed old T 12 compression # and Slight anterior wedge configuration of L1 which is new since the prior study. He had another fall earlier in November when he sustained paddy T12 compression fracture. CXR shows also old bilateral rib fractures. He was admitted for gait instability and recurrent falls. Gait instability and falls had a mechanical fall this time Has bilateral hip hard wares. 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 Nonsurgical candidate due to severe peripheral vascular disease status post stereotactic body radiation therapy (SBRT) completed 06/26/2017. Follow-up with oncology had CT chest in September 2020 COPD with chronic respiratory failure. He uses oxygen only at night spiriva , advair in place of breo albuterol prn. KENNEDY stopped losartan. will check bladder scan to rule out urinary retention Plan/VTE VTE Prophylaxis Ordered?: Yes VS, I&O, 24H, Fishbone Vital Signs/I&O Vital Signs Date Time Temp Pulse Resp B/P (MAP) Pulse Ox O2 Delivery O2 Flow Rate FiO2 12/05/20 05:48 98.2 66 17 98/56 (70) 94 Nasal Cannula 2.0 I&O- Last 24 Hours up to 6 AM 12/05/20 07:00 Intake Total 660 ml Output Total 800 ml Balance -140 ml Laboratory Data 24H LABS Laboratory Tests 2 12/04/20 07:20: Coronavirus (COVID-19)(PCR) NEGATIVE, Influenza Type A (RT-PCR) NEGATIVE, Influenza Type B (RT-PCR) NEGATIVE, Respiratory Syncytial Virus (PCR) NEGATIVE 12/04/20 10:48: Immature Granulocyte % (Auto) 0.7, Neutrophils (%) (Auto) 79.0H, Lymphocytes (%) (Auto) 11.0L, Monocytes (%) (Auto) 6.1, Eosinophils (%) (Auto) 2.9, Basophils (%) (Auto) 0.3, Neutrophils # (Auto) 7.3, Lymphocytes # (Auto) 1.0L, Monocytes # (Auto) 0.6, Eosinophils # (Auto) 0.3, Basophils # (Auto) 0.0, Nucleated Red Blood Cells % (auto) 0.0, Anion Gap 6L, Glomerular Filtration Rate > 60.0, Calcium Level 8.9, Whole Blood Ionized Calcium 4.6, Total Bilirubin 1.2H, Aspartate Amino Transf (AST/SGOT) 14, Alanine Aminotransferase (ALT/SGPT) 10L, Alkaline Phosphatase 132H, Total Protein 6.8, Albumin 3.3, Albumin/Globulin Ratio 0.9 12/04/20 12:23: Urine Color SAMEERA, Urine Appearance HAZY, Urine pH 5.0, Urine Specific [place] 1.019, Urine Protein 1+H, Urine Glucose (UA) NEGATIVE, Urine Ketones NEGATIVE, Urine Blood 2+H, Urine Nitrite NEGATIVE, Urine Bilirubin NEGATIVE, Urine Urobilinogen 4.0H, Urine Leukocyte Esterase 2+H, Urine WBC (Auto) 21H, Urine RBC (Auto) 12H, Urine Hyaline Casts (Auto) 0, Urine Bacteria (Auto) 1+H, Urine Squamous Epithelial Cells 0, Urine Mucus (Auto) SMALL, Urine Sperm (Auto) CBC/BMP Laboratory Tests 12/04/20 10:48 Microbiology Microbiology 12/04/20 Urine Culture, Received Pending JUNE LEWIS MD December 05, 2020 06:48
[2020-12-05 14:00] VITALS: BP 98/56
[2020-12-05] MEDS: ROSUVASTATIN 10 MG TAB (CRESTOR) PO SCH (21:30)
[2020-12-05] MEDS: POLYVINYL ALCOHOL OPHTH SOLN 15 ML(LIQUITEARS) OU PRN (21:32)
[2020-12-05 22:00] VITALS: BP 100/57
[2020-12-06 06:00] VITALS: BP 101/57
[2020-12-06 06:42] LABS: BASO % 0.4 % (0.0-1.0); EOS # 0.4 10^3/uL (0.0-0.5); EOS % 5.1 % (0.0-3.0); HEMATOCRIT 39.1 % (42.0-52.0); HEMOGLOBIN 12.6 g/dl (13.5-17.5); MEAN CORPUSCULAR HEMOGLOBIN 31.8 pg (27.0-33.0); MEAN CORPUSCULAR HGB CONC 32.2 g/dl (32.0-36.5); MEAN CORPUSCULAR VOLUME 98.7 fl (80.0-96.0); MONO # 0.6 10^3/uL (0.0-0.8); MONO % 8.3 % (2.0-8.0); NEUTROPHILS # 5.6 10^3/uL (1.5-8.5); NEUTROPHILS % 72.4 % (36.0-66.0); PLATELET COUNT, AUTOMATED 172 10^3/uL (150-450); RED BLOOD COUNT 3.96 10^6/uL (4.30-6.10); WHITE BLOOD COUNT 7.7 10^3/uL (4.0-10.0)
[2020-12-06 06:59] LABS: CALCIUM LEVEL 8.4 MG/DL (8.8-10.2); CREATININE FOR GFR 1.46 MG/DL (0.70-1.30); GLOMERULAR FILTRATION RATE 49.8 (>42); POTASSIUM SERUM 3.5 MEQ/L (3.5-5.1)
[2020-12-06] MEDS: TIOTROPIUM INHALER/CAPSULE (SPIRIVA) INH SCH (07:30)
[2020-12-06] MEDS: ADVAIR HFA 230/21MCG INHALER INH SCH ×2 (07:31→19:47)
[2020-12-06] MEDS: GABAPENTIN 300 MG CAP PO SCH ×2 (09:26→21:42)
[2020-12-06] MEDS: ASPIRIN 81MG ENTERIC TABLET PO SCH (09:26)
[2020-12-06] MEDS: SENOKOT S TAB PO SCH ×2 (09:26→21:41)
[2020-12-06] MEDS: CLOPIDOGREL 75 MG TAB PO SCH (09:26)
[2020-12-06] MEDS: SERTRALINE HCL 50 MG TAB PO SCH (09:26)
[2020-12-06] MEDS: ENOXAPARIN 40MG/0.4ML SYRINGE (J1650 PER 10MG) SC SCH (09:26)
[2020-12-06] MEDS: POLYVINYL ALCOHOL OPHTH SOLN 15 ML(LIQUITEARS) OU PRN (11:06)
--- NOTE | 2020-12-06 13:27 | IPNPDOC ---
Subjective Date Seen The patient was seen on 12/06/20. Subjective Chief Complaint/HPI No complaints this morning. Objective Physical Examination General Exam: Positive: Alert, Cooperative, No Acute Distress Eye Exam: Positive: PERRLA, Conjunctiva & lids normal, EOMI; Negative: Sclera icteric ENT Exam: Positive: Atraumatic, Mucous membr. 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 His neighbor called the EMS and he was brought to the ED. Trauma work up in the ED was negative for any acute fractures. Spine xray showed old T 12 compression # and Slight anterior wedge configuration of L1 which is new since the prior study. He had another fall earlier in November when he sustained paddy T12 compression fracture. CXR shows also old bilateral rib fractures. He was admitted for gait instability and recurrent falls. Gait instability and falls had a mechanical fall this time Has bilateral hip hard wares. 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 Nonsurgical candidate due to severe peripheral vascular disease status post stereotactic body radiation therapy (SBRT) completed 06/26/2017. Follow-up with oncology had CT chest in September 2020 COPD with chronic respiratory failure. He uses oxygen only at night spiriva , advair in place of breo albuterol prn. KENNEDY stopped losartan. Bladder scan shows a post void residual of 250 cc. creatinine better today. Plan/VTE VTE Prophylaxis Ordered?: Yes VS, I&O, 24H, Fishbone Vital Signs/I&O Vital Signs Date Time Temp Pulse Resp B/P (MAP) Pulse Ox O2 Delivery O2 Flow Rate FiO2 12/06/20 09:00 2.0 12/06/20 06:00 98.3 71 19 101/57 (72) 95 Nasal Cannula I&O- Last 24 Hours up to 6 AM 12/06/20 06:00 Intake Total 1460 ml Output Total 400 ml Balance 1060 ml Laboratory Data 24H LABS Laboratory Tests 2 12/06/20 05:49: Immature Granulocyte % (Auto) 0.8, Neutrophils (%) (Auto) 72.4H, Lymphocytes (%) (Auto) 13.0L, Monocytes (%) (Auto) 8.3H, Eosinophils (%) (Auto) 5.1H, Basophils (%) (Auto) 0.4, Neutrophils # (Auto) 5.6, Lymphocytes # (Auto) 1.0L, Monocytes # (Auto) 0.6, Eosinophils # (Auto) 0.4, Basophils # (Auto) 0.0, Nucleated Red Blood Cells % (auto) 0.0, Anion Gap 7L, Glomerular Filtration Rate 49.8, Calcium Level 8.4L CBC/BMP Laboratory Tests 12/06/20 05:49 Microbiology Microbiology 12/04/20 Urine Culture - Final, Complete JUNE LEWIS MD December 06, 2020 13:27
[2020-12-06 14:00] VITALS: BP 109/60
[2020-12-06] MEDS: ROSUVASTATIN 10 MG TAB (CRESTOR) PO SCH (21:42)
[2020-12-07 06:00] VITALS: BP 122/62
[2020-12-07 06:18] LABS: BASO % 0.4 % (0.0-1.0); EOS # 0.6 10^3/uL (0.0-0.5); EOS % 7.1 % (0.0-3.0); HEMATOCRIT 37.5 % (42.0-52.0); HEMOGLOBIN 12.4 g/dl (13.5-17.5); LYMPH # 1.1 10^3/uL (1.5-5.0); LYMPH % 14.2 % (24.0-44.0); MEAN CORPUSCULAR HEMOGLOBIN 32.5 pg (27.0-33.0); MEAN CORPUSCULAR HGB CONC 33.1 g/dl (32.0-36.5); MEAN CORPUSCULAR VOLUME 98.2 fl (80.0-96.0); MONO # 0.7 10^3/uL (0.0-0.8); MONO % 8.4 % (2.0-8.0); NEUTROPHILS # 5.4 10^3/uL (1.5-8.5); NEUTROPHILS % 69.3 % (36.0-66.0); PLATELET COUNT, AUTOMATED 183 10^3/uL (150-450); RED BLOOD COUNT 3.82 10^6/uL (4.30-6.10); WHITE BLOOD COUNT 7.8 10^3/uL (4.0-10.0)
[2020-12-07 06:50] LABS: BLOOD UREA NITROGEN 15 MG/DL (7-18); CALCIUM LEVEL 8.6 MG/DL (8.8-10.2); CARBON DIOXIDE LEVEL 24 MEQ/L (21-32); CHLORIDE LEVEL 107 MEQ/L (98-107); CREATININE FOR GFR 1.07 MG/DL (0.70-1.30); GLOMERULAR FILTRATION RATE > 60.0 (>42); GLUCOSE, FASTING 87 MG/DL (70-100); POTASSIUM SERUM 3.6 MEQ/L (3.5-5.1); SODIUM LEVEL 139 MEQ/L (136-145)
[2020-12-07] MEDS: SENOKOT S TAB PO SCH ×2 (08:01→20:23)
[2020-12-07] MEDS: ADVAIR HFA 230/21MCG INHALER INH SCH ×2 (08:12→20:59)
[2020-12-07] MEDS: TIOTROPIUM INHALER/CAPSULE (SPIRIVA) INH SCH (08:12)
[2020-12-07] MEDS: SERTRALINE HCL 50 MG TAB PO SCH (08:51)
[2020-12-07] MEDS: CLOPIDOGREL 75 MG TAB PO SCH (08:51)
[2020-12-07] MEDS: ENOXAPARIN 40MG/0.4ML SYRINGE (J1650 PER 10MG) SC SCH (08:51)
[2020-12-07] MEDS: ASPIRIN 81MG ENTERIC TABLET PO SCH (08:51)
[2020-12-07] MEDS: GABAPENTIN 300 MG CAP PO SCH ×2 (08:51→20:23)
--- NOTE | 2020-12-07 11:49 | DS.PDOC ---
Discharge Summary General Date of Admission December 04, 2020 at 17:14 Date of Discharge 12/07/20 Discharge Summary PROCEDURES PERFORMED DURING STAY: [None]. 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 Nonsurgical candidate due to severe peripheral vascular disease status post stereotactic body radiation therapy (SBRT) completed 06/26/2017. Abnormal CT chest :Possible radiation fibrosis at right upper lobe vs tumor Hypertension COMPLICATIONS/CHIEF COMPLAINT: Frequent Falls & Gait Instability. 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 His neighbor called the EMS and he was brought to the ED. Trauma work up in the ED was negative for any acute fractures. Spine xray showed old T 12 compression # and Slight anterior wedge configuration of L1 which is new since the prior study. He had another fall earlier in November when he sustained paddy T12 compression fracture. CXR shows also old bilateral rib fractures. He was admitted for gait instability and recurrent falls. He was assessed by PT/Ot in hospital and reccomended he needed continued rehab to get back to his baseline functional status to be able to manage living alone in his apartment. Gait instability and falls had a mechanical fall this time Has bilateral hip hard wares. 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 Nonsurgical candidate due to severe peripheral vascular disease status post stereotactic body radiation therapy (SBRT) completed 06/26/2017. Follow-up with oncology had CT chest in September 2020 COPD with chronic respiratory failure. He uses oxygen only at night spiriva , breo, albuterol prn. KENNEDY stopped losartan. Torsemide was held in the hospital Bladder scan shows a post void residual of 250 cc. creatinine better today. Will resume torsemide 10 mg daily DISCHARGE MEDICATIONS: Please see below. ALLERGIES: Please see below. PHYSICAL EXAMINATION ON DISCHARGE: VITAL SIGNS: Please see below. General Exam: Positive: Alert, Cooperative, No Acute Distress Eye Exam: Positive: PERRLA, Conjunctiva & lids normal, EOMI; Negative: Sclera icteric ENT Exam: Positive: Atraumatic, Mucous membr. moist/pink, Pharynx Normal Neck Exam: Positive: Supple; Negative: JVD, thyromegaly Chest Exam: Positive: Wheezing, Diminished Heart Exam: Positive: Rate Normal, Regular Rhythm, Normal S1, Normal S2; Negative: Murmurs, Rubs Abdomen Exam: Positive: Normal bowel sounds, Soft; Negative: Tenderness, Hepatosplenomegaly Extremity Exam: Negative: Clubbing, Cyanosis, Edema LABORATORY DATA: Please see below. ACTIVITY: [As tolerated]. DIET: As tolerated DISCHARGE PLAN: Cardiac rehabilitation DISCHARGE INSTRUCTIONS: PMD in 1 month DISCHARGE CONDITION: [Stable]. TIME SPENT ON DISCHARGE: 35 minutes. Vital Signs/I&Os Vital Signs Date Time Temp Pulse Resp B/P (MAP) Pulse Ox O2 Delivery O2 Flow Rate FiO2 12/07/20 06:00 97.3 76 20 122/62 (82) 91 Nasal Cannula 2.0 I&O- Last 24 Hours up to 6 AM 12/07/20 05:59 Intake Total 1230 ml Output Total 800 ml Balance 430 ml Laboratory Data Labs 24H Laboratory Tests 2 12/06/20 18:41: Coronavirus (COVID-19)(PCR) NEGATIVE 12/07/20 05:57: Immature Granulocyte % (Auto) 0.6, Neutrophils (%) (Auto) 69.3H, Lymphocytes (%) (Auto) 14.2L, Monocytes (%) (Auto) 8.4H, Eosinophils (%) (Auto) 7.1H, Basophils (%) (Auto) 0.4, Neutrophils # (Auto) 5.4, Lymphocytes # (Auto) 1.1L, Monocytes # (Auto) 0.7, Eosinophils # (Auto) 0.6H, Basophils # (Auto) 0.0, Nucleated Red Blood Cells % (auto) 0.0, Anion Gap 8, Glomerular Filtration Rate > 60.0, Calcium Level 8.6L CBC/BMP Laboratory Tests 12/07/20 05:57 Microbiology Microbiology 12/04/20 Urine Culture - Final, Complete Discharge Medications Scheduled Aspirin (Aspirin EC) 81 Mg Tablet.dr, 81 MG PO DAILY, (Reported) Clopidogrel Bisulfate (Clopidogrel) 75 Mg Tab, 75 MG PO DAILY, (Reported) Fluticasone/Vilanterol (Breo Ellipta 200-25 Mcg INH) 1 Each Blst.w.dev, 1 PUFF INH DAILY, (Reported) Gabapentin (Gabapentin) 300 Mg Cap, 300 MG PO DAILY, (Reported) Gabapentin (Gabapentin) 300 Mg Capsule, 600 MG PO QHS, (Reported) Potassium Citrate (Potassium Citrate ER) 15 Meq Tablet.er, 15 MEQ PO BID, (Reported) Rosuvastatin Calcium (Crestor) 40 Mg Tab, 40 MG PO QHS, (Reported) Sertraline HCl (Sertraline HCl) 50 Mg Tablet, 50 MG PO DAILY, (Reported) Tiotropium [place] (Spiriva Respimat) 4 Gm Mist.inhal, 2 PUFFS INH DAILY, (Reported) Torsemide (Torsemide) 20 Mg Tab, 10 MG PO DAILY, (Reported) TAKE 20MG IF WEIGHT GAIN >4LBS Scheduled PRN Acetaminophen (Acetaminophen) 325 Mg Tablet, 2 TAB PO Q8HP PRN for pain Albuterol Sulfate (Albuterol Sulfate) 2.5 Mg/0.5 Ml Neb, 2.5 MG INH QID PRN for SHORTNESS OF BREATH, (Reported) Albuterol Sulfate (Albuterol Sulfate Hfa) 8.5 Gm Hfa.aer.ad, 2 PUFF INH Q4H PRN for SOB/WHEEZING, (Reported) Allergies Coded Allergies: No Known Allergies (Verified , 08/23/19) JUNE LEWIS MD December 07, 2020 11:49
[2020-12-07] MEDS: ROSUVASTATIN 10 MG TAB (CRESTOR) PO SCH (20:23)
[2020-12-07] MEDS: POLYVINYL ALCOHOL OPHTH SOLN 15 ML(LIQUITEARS) OU PRN (20:33)
[2020-12-07 23:00] VITALS: BP 117/59
[2020-12-08 06:00] VITALS: BP 139/66
[2020-12-08] MEDS: ADVAIR HFA 230/21MCG INHALER INH SCH (06:29)
[2020-12-08] MEDS: TIOTROPIUM INHALER/CAPSULE (SPIRIVA) INH SCH (06:29)
[2020-12-08] MEDS: GABAPENTIN 300 MG CAP PO SCH (09:36)
[2020-12-08] MEDS: SENOKOT S TAB PO SCH (09:36)
[2020-12-08] MEDS: ASPIRIN 81MG ENTERIC TABLET PO SCH (09:36)
[2020-12-08] MEDS: ENOXAPARIN 40MG/0.4ML SYRINGE (J1650 PER 10MG) SC SCH (09:37)
[2020-12-08] MEDS: SERTRALINE HCL 50 MG TAB PO SCH (09:37)
[2020-12-08] MEDS: CLOPIDOGREL 75 MG TAB PO SCH (09:37)
--- NOTE | 2020-12-08 14:02 | DS.PDOC ---
Discharge Summary General Date of Admission December 04, 2020 at 17:14 Date of Discharge 12/08/20 Discharge Summary PROCEDURES PERFORMED DURING STAY: [None]. 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 Nonsurgical candidate due to severe peripheral vascular disease status post stereotactic body radiation therapy (SBRT) completed 06/26/2017. Abnormal CT chest :Possible radiation fibrosis at right upper lobe vs tumor Hypertension COMPLICATIONS/CHIEF COMPLAINT: Frequent Falls & Gait Instability. 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 His neighbor called the EMS and he was brought to the ED. Trauma work up in the ED was negative for any acute fractures. Spine xray showed old T 12 compression # and Slight anterior wedge configuration of L1 which is new since the prior study. He had another fall earlier in November when he sustained paddy T12 compression fracture. CXR shows also old bilateral rib fractures. He was admitted for gait instability and recurrent falls. He was assessed by PT/Ot in hospital and reccomended he needed continued rehab to get back to his baseline functional status to be able to manage living alone in his apartment. Gait instability and falls had a mechanical fall this time Has bilateral hip hard wares. 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 Nonsurgical candidate due to severe peripheral vascular disease status post stereotactic body radiation therapy (SBRT) completed 06/26/2017. Follow-up with oncology had CT chest in September 2020 COPD with chronic respiratory failure. He uses oxygen only at night spiriva , breo, albuterol prn. KENNEDY stopped losartan. Torsemide was held in the hospital Bladder scan shows a post void residual of 250 cc. creatinine better today. Will resume torsemide 10 mg daily DISCHARGE MEDICATIONS: Please see below. ALLERGIES: Please see below. PHYSICAL EXAMINATION ON DISCHARGE: VITAL SIGNS: Please see below. General Exam: Positive: Alert, Cooperative, No Acute Distress Eye Exam: Positive: PERRLA, Conjunctiva & lids normal, EOMI; Negative: Sclera icteric ENT Exam: Positive: Atraumatic, Mucous membr. moist/pink, Pharynx Normal Neck Exam: Positive: Supple; Negative: JVD, thyromegaly Chest Exam: Positive: Wheezing, Diminished Heart Exam: Positive: Rate Normal, Regular Rhythm, Normal S1, Normal S2; Negative: Murmurs, Rubs Abdomen Exam: Positive: Normal bowel sounds, Soft; Negative: Tenderness, Hepatosplenomegaly Extremity Exam: Negative: Clubbing, Cyanosis, Edema LABORATORY DATA: Please see below. ACTIVITY: [As tolerated]. DIET: As tolerated DISCHARGE PLAN: Cardiac rehabilitation DISCHARGE INSTRUCTIONS: PMD in 1 month DISCHARGE CONDITION: [Stable]. TIME SPENT ON DISCHARGE: 35 minutes. Vital Signs/I&Os Vital Signs Date Time Temp Pulse Resp B/P (MAP) Pulse Ox O2 Delivery O2 Flow Rate FiO2 12/08/20 06:00 98.9 67 18 139/66 (90) 87 Nasal Cannula 2.0 I&O- Last 24 Hours up to 6 AM 12/08/20 05:59 Intake Total 680 ml Output Total 500 ml Balance 180 ml Microbiology Microbiology 12/04/20 Urine Culture - Final, Complete Discharge Medications Scheduled Aspirin (Aspirin EC) 81 Mg Tablet.dr, 81 MG PO DAILY, (Reported) Clopidogrel Bisulfate (Clopidogrel) 75 Mg Tab, 75 MG PO DAILY, (Reported) Fluticasone/Vilanterol (Breo Ellipta 200-25 Mcg INH) 1 Each Blst.w.dev, 1 PUFF INH DAILY, (Reported) Gabapentin (Gabapentin) 300 Mg Cap, 300 MG PO DAILY, (Reported) Gabapentin (Gabapentin) 300 Mg Capsule, 600 MG PO QHS, (Reported) Potassium Citrate (Potassium Citrate ER) 15 Meq Tablet.er, 15 MEQ PO BID, (Reported) Rosuvastatin Calcium (Crestor) 40 Mg Tab, 40 MG PO QHS, (Reported) Sertraline HCl (Sertraline HCl) 50 Mg Tablet, 50 MG PO DAILY, (Reported) Tiotropium Duarte (Spiriva Respimat) 4 Gm Mist.inhal, 2 PUFFS INH DAILY, (Reported) Torsemide (Torsemide) 20 Mg Tab, 10 MG PO DAILY, (Reported) TAKE 20MG IF WEIGHT GAIN >4LBS Scheduled PRN Acetaminophen (Acetaminophen) 325 Mg Tablet, 2 TAB PO Q8HP PRN for pain Albuterol Sulfate (Albuterol Sulfate) 2.5 Mg/0.5 Ml Neb, 2.5 MG INH QID PRN for SHORTNESS OF BREATH, (Reported) Albuterol Sulfate (Albuterol Sulfate Hfa) 8.5 Gm Hfa.aer.ad, 2 PUFF INH Q4H PRN for SOB/WHEEZING, (Reported) Allergies Coded Allergies: No Known Allergies (Verified , 08/23/19) JUNE LEWIS MD December 08, 2020 14:02
== END 2020-12-08 16:55 | DRG 92 ==
LOC: M ED 22:56 → M ED INP 12-04 08:31 → ENRESERV 12-04 09:35 → M MS5PR 12-04 10:10 → OBSVTOIN 12-04 17:14
PROVIDERS: ADMIT Internal Medicine Nephrology; ATTEND Internal Medicine Nephrology
DX: R29.6 Repeated falls (principal); S32.010A Wedge compression fracture of first lumbar vertebra, initial encounter for closed fracture; J96.10 Chronic respiratory failure, unspecified whether with hypoxia or hypercapnia; C34.11 Malignant neoplasm of upper lobe, right bronchus or lung; N17.9 Acute kidney failure, unspecified; J44.9 Chronic obstructive pulmonary disease, unspecified; Z92.3 Personal history of irradiation; I12.9 Hypertensive chronic kidney disease with stage 1 through stage 4 chronic kidney disease, or unspecified chronic kidney disease; Z79.82 Long term (current) use of aspirin; Z79.02 Long term (current) use of antithrombotics/antiplatelets; Z79.899 Other long term (current) drug therapy; N18.30 Chronic kidney disease, stage 3 unspecified; E78.5 Hyperlipidemia, unspecified; F32.9 Major depressive disorder, single episode, unspecified; I73.9 Peripheral vascular disease, unspecified; Z20.822 Contact with and (suspected) exposure to COVID-19; R26.89 Other abnormalities of gait and mobility; H04.123 Dry eye syndrome of bilateral lacrimal glands; W03.XXXA Other fall on same level due to collision with another person, initial encounter; Y92.038 Other place in apartment as the place of occurrence of the external cause

== ENCOUNTER → 2021-06-06 | Outpatient (CLI) | payer MEDICARE, MEDICAID ==
[~2021-06-06] MED LIST changes: +ACET32TAB PO; +SERT50TA29 PO
--- NOTE | 2021-06-06 12:56 | REP ---
INDICATION: PERSONAL HX MALIGNANT NEOPLASM OF BRONCHUS/LUNG COMPARISON: Multiple the latest 10/11/2020 also without contrast TECHNIQUE: Standard helical technique without contrast FINDINGS: The mediastinum and pulmonary amena are unchanged. Stable lymph nodes are noted status quo. There are no pleural or pericardial effusions. The imaged upper abdomen shows a calcification in the inferior pole the right kidney. This was not imaged the prior chest CT but appears unchanged compared to the abdominal CT of 06/30/2019. There is no evidence of hydronephrosis. The imaged osseous structures are stable. Once again, there is a grade 3 anterior wedge compression deformity involving T12. Evaluation of the lung suresh again shows rather extensive chronic changes with parenchymal scarring particularly in the right upper lobe with advanced emphysematous change with parenchymal bulla and pleural blebs. Respiratory motion artifact obscures the detail in the lung bases. There is narrowing of the bronchus intermedius which may have worsened.. There is unchanged honeycomb lung formation in the right lower lobe but obscured by motion artifact on today's exam. Once again, there is thoracic aortic ectasia which appears stable but seen in limited fashion on today's exam. IMPRESSION: Advanced chronic lung field changes with other findings and limitations as described above. <Electronically signed by Alec Wolf > 06/06/21 [id number]
== END ==
LOC: M RAD 11:12
PROVIDERS: ATTEND Internal Medicine Pulmonary Disease
DX: Z85.118 Personal history of other malignant neoplasm of bronchus and lung (principal)

== ENCOUNTER → 2021-12-21 | Outpatient (CLI) | payer MEDICARE, MEDICAID ==
[~2021-12-21] MED LIST changes: +LOSA25TA13 PO; -LOSA25TA14 PO
== END ==
LOC: M PLAIMG 12:21
PROVIDERS: ATTEND Internal Medicine Pulmonary Disease
DX: Z85.118 Personal history of other malignant neoplasm of bronchus and lung (principal); J44.9 Chronic obstructive pulmonary disease, unspecified; R91.8 Other nonspecific abnormal finding of lung field; J98.4 Other disorders of lung; I77.811 Abdominal aortic ectasia

== ENCOUNTER → 2022-08-06 | Outpatient (CLI) | payer MEDICARE, MEDICAID ==
[~2022-08-06] MED LIST changes: -DOXY-350 PO; +DOXY-444 PO
== END ==
LOC: M RAD 13:30
PROVIDERS: ATTEND Internal Medicine Pulmonary Disease
DX: Z85.118 Personal history of other malignant neoplasm of bronchus and lung (principal); J43.2 Centrilobular emphysema; R91.8 Other nonspecific abnormal finding of lung field; N20.1 Calculus of ureter; C78.01 Secondary malignant neoplasm of right lung; Z90.49 Acquired absence of other specified parts of digestive tract; M48.54XA Collapsed vertebra, not elsewhere classified, thoracic region, initial encounter for fracture

== ENCOUNTER → 2023-01-03 | Outpatient (CLI) | payer MEDICARE, MEDICAID | LOC: M RAD 14:14 | PROVIDERS: ATTEND Internal Medicine Pulmonary Disease | DX: R91.8 Other nonspecific abnormal finding of lung field (principal); J43.9 Emphysema, unspecified; J98.11 Atelectasis; J84.10 Pulmonary fibrosis, unspecified; I70.0 Atherosclerosis of aorta; I25.10 Atherosclerotic heart disease of native coronary artery without angina pectoris ==

== ENCOUNTER 2023-01-22 13:01 | Inpatient (IN) | payer MEDICARE, MEDICAID ==
[~2023-01-22] VITALS: Ht 177.8 cm; Wt 80.0 kg
[2023-01-22] MEDS ORDERED: MORPHINE 4 MG/ML 1ML VIAL IV ONE (14:40)
[2023-01-22 15:10] LABS: BASO # 0.1 10^3/uL (0.0-0.2); BASO % 0.5 % (0.0-1.0); EOS # 0.3 10^3/uL (0.0-0.5); EOS % 2.4 % (0.0-3.0); HEMATOCRIT 43.1 % (42.0-52.0); HEMOGLOBIN 13.8 g/dl (13.5-17.5); LYMPH # 1.7 10^3/uL (1.5-5.0); LYMPH % 12.1 % (24.0-44.0); MEAN CORPUSCULAR HEMOGLOBIN 30.4 pg (27.0-33.0); MEAN CORPUSCULAR VOLUME 94.9 fl (80.0-96.0); MONO # 0.8 10^3/uL (0.0-0.8); NEUTROPHILS # 10.9 10^3/uL (1.5-8.5); NEUTROPHILS % 78.1 % (36.0-66.0); PLATELET COUNT, AUTOMATED 329 10^3/uL (150-450); RED BLOOD COUNT 4.54 10^6/uL (4.30-6.10)
[2023-01-22 15:12] LABS: BLOOD UREA NITROGEN 21 MG/DL (9-23); CALCIUM LEVEL 10.4 MG/DL (8.3-10.6); CARBON DIOXIDE LEVEL 28 MMOL/L (20-31); CHLORIDE LEVEL 105 MMOL/L (98-107); GLOMERULAR FILTRATION RATE > 60.0 (>42); GLUCOSE, FASTING 76 MG/DL (74-106); POTASSIUM SERUM 4.4 MMOL/L (3.5-5.1); SODIUM LEVEL 137 MMOL/L (136-145)
[2023-01-22] MEDS ORDERED: MED REC IN PROGRESS XX SCH (15:30)
[2023-01-22 15:33] LABS: INR 1.09; PROTHROMBIN TIME 14.3 SECONDS (12.5-14.5)
[2023-01-22 15:58] LABS: RSV AMPLIFICATION NEGATIVE (NEGATIVE)
[2023-01-22] MEDS: MORPHINE 4 MG/ML 1ML VIAL IV PRN ×2 (17:44→22:04)
[2023-01-22] MEDS: D5W/0.45% SODIUM CHLORIDE 1,000 ML IV SCH (17:49)
[2023-01-22] MEDS ORDERED: NS 1,000 ML IV ONE ×2 (17:50→18:30)
[2023-01-22] MEDS ORDERED: GLUCOSE 4GM CHEW TABLET PO PRN (20:35)
[2023-01-22] MEDS ORDERED: DEXTROSE 50% 50ML SYRINGE IV PRN (20:35)
[2023-01-22] MEDS ORDERED: GLUCAGON INJ 1MG VIAL SC PRN (20:35)
[2023-01-22 21:49] VITALS: BP 135/107; TEMP 97.1; O2SAT 90
[2023-01-22 22:30] VITALS: BP 105/63
[2023-01-23] VITALS (11 sets, daily range): BP systolic 98–149; BP diastolic 50–79; TEMP 97–98.1; O2SAT 87–96
[2023-01-23] MEDS ORDERED: KETOROLAC 30 MG/ML 1ML VIAL IV ONE
[2023-01-23] MEDS: D5W/0.45% SODIUM CHLORIDE 1,000 ML IV SCH ×2 (06:42→11:40)
[2023-01-23] MEDS: MORPHINE 4 MG/ML 1ML VIAL IV PRN (11:40)
[2023-01-23] MEDS ORDERED: propofoL 200 MG/20 ML VIAL As Ordered ONE ×2 (13:21→15:25)
[2023-01-23] MEDS ORDERED: ROCURONIUM BROMIDE 50MG/5ML VIAL As Ordered ONE (13:22)
[2023-01-23] MEDS ORDERED: PHENYLephrine 500MCG 5ML (100MCG/ML) SYRINGE As Ordered ONE ×3 (13:22→15:13)
[2023-01-23] MEDS ORDERED: LIDOCAINE 2% 100MG/5ML SDV (FOR ANES.) As Ordered ONE (13:22)
[2023-01-23] MEDS ORDERED: fentaNYL 100 MCG/2 ML INJECTION As Ordered ONE ×2 (13:24→15:37)
[2023-01-23] MEDS ORDERED: CLINDAMYCIN 900MG/6ML VIAL As Ordered ONE (13:26)
[2023-01-23] MEDS ORDERED: ceFAZolin 1GM VIAL As Ordered ONE (13:26)
[2023-01-23] MEDS ORDERED: MIDAZOLAM INJ 2MG/2ML VIAL As Ordered ONE (13:34)
[2023-01-23] MEDS ORDERED: ceFAZolin 2 GM/D5W 50 ML IV BAG As Ordered ONE (14:45)
[2023-01-23] MEDS ORDERED: ACETAMINOPHEN 1000MG 100ML IV BAG As Ordered ONE (14:59)
[2023-01-23] MEDS ORDERED: ONDANSETRON 4MG 2ML VIAL As Ordered ONE ×2 (15:12→15:13)
[2023-01-23] MEDS ORDERED: fentaNYL 100 MCG/2 ML INJECTION IV PRN (16:05)
[2023-01-23] MEDS ORDERED: METOCLOPRAMIDE INJ 10MG/2ML VIAL IV PRN (16:05)
[2023-01-23] MEDS ORDERED: MEPERIDINE 25 MG/ML 1ML VIAL IV PRN (16:05)
[2023-01-23] MEDS ORDERED: ONDANSETRON 4MG 2ML VIAL IV PRN (16:05)
[2023-01-23] MEDS ORDERED: MORPHINE 2 MG/ML 1ML VIAL IV PRN (16:05)
[2023-01-23] MEDS ORDERED: LR 1,000 ML IV SCH (16:05)
[2023-01-23] MEDS ORDERED: oxyCODONE 5MG TAB PO PRN (16:05)
[2023-01-23] MEDS ORDERED: IPRATROPIUM 0.5MG/ALBUTEROL 2.5MG INH SOL UD 3ML (DUONEB) NEB PRN (21:10)
[2023-01-23 21:29] LABS: BASO % 0.2 % (0.0-1.0); EOS % 0.1 % (0.0-3.0); HEMATOCRIT 35.8 % (42.0-52.0); LYMPH # 0.5 10^3/uL (1.5-5.0); LYMPH % 3.2 % (24.0-44.0); MEAN CORPUSCULAR HEMOGLOBIN 30.5 pg (27.0-33.0); MEAN CORPUSCULAR HGB CONC 31.6 g/dl (32.0-36.5); MEAN CORPUSCULAR VOLUME 96.8 fl (80.0-96.0); MONO # 0.4 10^3/uL (0.0-0.8); MONO % 2.4 % (2.0-8.0); NEUTROPHILS # 15.1 10^3/uL (1.5-8.5); NEUTROPHILS % 93.4 % (36.0-66.0); PLATELET COUNT, AUTOMATED 224 10^3/uL (150-450); WHITE BLOOD COUNT 16.1 10^3/uL (4.0-10.0)
[2023-01-23 21:39] LABS: HEMOGLOBIN 11.3 g/dl (13.5-17.5)
[2023-01-23] MEDS ORDERED: methylPREDNISolone 125MG 2ML VIAL IV ONE (22:00)
[2023-01-23 22:03] LABS: ERYTHROCYTE SEDIMENTATION RATE 61 mm/hr (0-20)
[2023-01-23] MEDS: carisoprodoL 350 MG TAB PO PRN (22:16)
[2023-01-23] MEDS: ceFAZolin SOD 2 GM in IV 1 EA IV SCH (22:16)
[2023-01-23 22:17] LABS: ABG BASE EXCESS -3.8 (-2.0-2.0); ABG HCO3 21.5 MMOL/L (22.0-26.0); ABG O2 SATURATION 91.1 % (95.0-99.0); ABG PARTIAL PRESSURE CO2 39.7 mmHg (35.0-45.0); ABG PARTIAL PRESSURE O2 65.2 mmHg (75.0-100.0); ABG STANDARD HCO3 21.2 MMOL/L. (22.0-26.0); ABG TOTAL CO2 22.7 MMOL/L (23.0-31.0); ABG pH (ARTERIAL) 7.351 UNITS (7.350-7.450)
[2023-01-23 22:31] LABS: CPK CREATINE PHOSPHOKINASE 262 U/L (46-171)
[2023-01-23 22:33] LABS: ALBUMIN 2.5 G/DL (3.2-5.2); ALKALINE PHOSPHATASE 122 U/L (46-116); ALT/SGPT 10 U/L (7.0-40); AST/SGOT 25 U/L (<34); BILIRUBIN,TOTAL 0.5 MG/DL (0.3-1.2); BLOOD UREA NITROGEN 23 MG/DL (9-23); CALCIUM LEVEL 8.7 MG/DL (8.3-10.6); CARBON DIOXIDE LEVEL 25 MMOL/L (20-31); CHLORIDE LEVEL 102 MMOL/L (98-107); CK-MB VALUE MASS 3.3 NG/ML (<3.6); CREATININE FOR GFR 1.06 MG/DL (0.70-1.30); GLOMERULAR FILTRATION RATE > 60.0 (>42); GLUCOSE, FASTING 178 MG/DL (74-106); MB/CK RELATIVE INDEX 1.25 (< OR =4); POTASSIUM SERUM 4.6 MMOL/L (3.5-5.1); SODIUM LEVEL 135 MMOL/L (136-145)
[2023-01-24] VITALS (12 sets, daily range): BP systolic 100–145; BP diastolic 42–77; TEMP 97.5–98.5; O2SAT 86–98
[2023-01-24] MEDS: IPRATROPIUM 0.5MG/ALBUTEROL 2.5MG INH SOL UD 3ML (DUONEB) NEB SCH ×7 (00:37→23:25)
[2023-01-24] MEDS: carisoprodoL 350 MG TAB PO PRN (03:46)
[2023-01-24] MEDS ORDERED: ISOVUE-370 76% 100ML VIAL As Ordered ONE (05:47)
[2023-01-24 05:50] LABS: BASO % 0.1 % (0.0-1.0); EOS % 0.1 % (0.0-3.0); HEMATOCRIT 30.4 % (42.0-52.0); HEMOGLOBIN 9.6 g/dl (13.5-17.5); LYMPH # 0.3 10^3/uL (1.5-5.0); LYMPH % 2.2 % (24.0-44.0); MEAN CORPUSCULAR HEMOGLOBIN 30.2 pg (27.0-33.0); MEAN CORPUSCULAR HGB CONC 31.6 g/dl (32.0-36.5); MEAN CORPUSCULAR VOLUME 95.6 fl (80.0-96.0); MONO # 0.3 10^3/uL (0.0-0.8); MONO % 2.1 % (2.0-8.0); NEUTROPHILS # 11.8 10^3/uL (1.5-8.5); NEUTROPHILS % 94.8 % (36.0-66.0); PLATELET COUNT, AUTOMATED 195 10^3/uL (150-450); RED BLOOD COUNT 3.18 10^6/uL (4.30-6.10); WHITE BLOOD COUNT 12.5 10^3/uL (4.0-10.0)
[2023-01-24 05:56] LABS: ABG BASE EXCESS -4.5 (-2.0-2.0); ABG HCO3 20.7 MMOL/L (22.0-26.0); ABG O2 SATURATION 96.6 % (95.0-99.0); ABG PARTIAL PRESSURE CO2 38.8 mmHg (35.0-45.0); ABG PARTIAL PRESSURE O2 90.5 mmHg (75.0-100.0); ABG STANDARD HCO3 20.7 MMOL/L. (22.0-26.0); ABG TOTAL CO2 21.9 MMOL/L (23.0-31.0); ABG pH (ARTERIAL) 7.346 UNITS (7.350-7.450)
[2023-01-24] MEDS ORDERED: ACET-897 PO (05:56)
[2023-01-24] MEDS ORDERED: MUCI120T PO (05:56)
[2023-01-24] MEDS ORDERED: TORS10TA3 PO (05:56)
[2023-01-24] MEDS ORDERED: ENSU1LIQ50 PO (05:56)
[2023-01-24] MEDS ORDERED: AMOX875T2 PO (05:56)
[2023-01-24] MEDS ORDERED: IPRA0.00 INH (05:56)
[2023-01-24] MEDS ORDERED: HOME MED LIST COMPLETE! XX SCH (06:00)
[2023-01-24] MEDS ORDERED: LevoFLOXacin IV 750 MG in IV 1 EA IV SCH (06:00)
[2023-01-24 06:14] LABS: BLOOD UREA NITROGEN 26 MG/DL (9-23); CALCIUM LEVEL 8.3 MG/DL (8.3-10.6); CARBON DIOXIDE LEVEL 23 MMOL/L (20-31); CHLORIDE LEVEL 105 MMOL/L (98-107); CREATININE FOR GFR 1.09 MG/DL (0.70-1.30); GLOMERULAR FILTRATION RATE > 60.0 (>42); GLUCOSE, FASTING 229 MG/DL (74-106); MAGNESIUM LEVEL 1.7 MG/DL (1.8-2.4); POTASSIUM SERUM 4.7 MMOL/L (3.5-5.1); SODIUM LEVEL 137 MMOL/L (136-145)
[2023-01-24] MEDS ORDERED: MAG SULF 1GM/100ML (MAG RUN) 1 GM in IV 1 EA IV ONE ×2 (07:00→09:00)
[2023-01-24] MEDS ORDERED: MIDODRINE 5 MG TAB PO ONE (07:00)
[2023-01-24] MEDS ORDERED: methylPREDNISolone 125MG 2ML VIAL IV ONE ×2 (07:00→18:40)
[2023-01-24] MEDS ORDERED: MIDODRINE 5 MG TAB PO SCH (08:00)
[2023-01-24] MEDS: ceFAZolin SOD 2 GM in IV 1 EA IV SCH (08:39)
[2023-01-24] MEDS: TORSEMIDE 10 MG TABLET PO SCH (08:44)
[2023-01-24] MEDS ORDERED: ENOXAPARIN 80MG/0.8ML SYRINGE (J1650 PER 10MG) SC SCH (09:00)
[2023-01-24] MEDS ORDERED: ROSUVASTATIN 10 MG TAB (CRESTOR) PO SCH (09:00)
[2023-01-24] MEDS ORDERED: SERTRALINE HCL 50 MG TAB PO SCH (09:00)
[2023-01-24] MEDS ORDERED: traMADol 50 MG TAB PO ONE (10:00)
[2023-01-24] MEDS ORDERED: ACETAMINOPHEN 500 MG TAB PO ONE (10:00)
[2023-01-24 10:31] LABS: PTT LUPUS TYPE ANTICOAG SCREEN 1.1 (0-1.2)
[2023-01-24 14:34] LABS: ABG BASE EXCESS -2.2 (-2.0-2.0); ABG HCO3 22.7 MMOL/L (22.0-26.0); ABG PARTIAL PRESSURE CO2 39.1 mmHg (35.0-45.0); ABG PARTIAL PRESSURE O2 71.6 mmHg (75.0-100.0); ABG STANDARD HCO3 22.6 MMOL/L. (22.0-26.0); ABG TOTAL CO2 23.9 MMOL/L (23.0-31.0); ABG pH (ARTERIAL) 7.381 UNITS (7.350-7.450)
[2023-01-24] MEDS: MIDODRINE 5 MG TAB PO SCH (16:08)
[2023-01-24] MEDS ORDERED: HEPARIN SOD (PORCINE) 5000UNITS/ML 1ML VIAL/SYRINGE IV PRN (17:30)
[2023-01-24] MEDS: cefTRIAXone SOD 2 GM in D5W MINI-BAG PLUS 50 ML IV SCH (18:21)
[2023-01-24 18:33] LABS: CK-MB VALUE MASS 2.2 NG/ML (<3.6)
[2023-01-24 18:35] LABS: MB/CK RELATIVE INDEX 1.8 (< OR =4)
[2023-01-24] MEDS ORDERED: NITROGLYCERIN 0.4MG SUBL TABLET SL PRN (18:50)
[2023-01-24 19:03] LABS: MAGNESIUM LEVEL 1.9 MG/DL (1.8-2.4)
[2023-01-24] MEDS: guaiFENesin ER 600 MG TAB PO SCH (19:16)
[2023-01-24] MEDS: ATORVASTATIN 20 MG TAB PO SCH (21:44)
[2023-01-24] MEDS: HEPARIN DRIP 25,000 UNITS in IV 1 EA IV SCH (21:46)
[2023-01-25] VITALS (11 sets, daily range): BP systolic 99–144; BP diastolic 52–75; TEMP 96.7–98; O2SAT 93–100
[2023-01-25] MEDS: methylPREDNISolone 125MG 2ML VIAL IV SCH ×5 (00:46→23:52)
[2023-01-25 02:10] LABS: CK-MB VALUE MASS 2.4 NG/ML (<3.6)
[2023-01-25] MEDS ORDERED: NS 500 ML IV ONE (02:40)
[2023-01-25 02:51] LABS: MB/CK RELATIVE INDEX 2.3 (< OR =4)
[2023-01-25] MEDS: IPRATROPIUM 0.5MG/ALBUTEROL 2.5MG INH SOL UD 3ML (DUONEB) NEB SCH ×5 (03:23→20:06)
[2023-01-25] MEDS ORDERED: HALOPERIDOL 5MG/ML 1ML VIAL IM ONE ×2 (04:00→23:00)
[2023-01-25 04:32] LABS: BASO % 0.1 % (0.0-1.0); EOS % 0.1 % (0.0-3.0); HEMATOCRIT 27.6 % (42.0-52.0); LYMPH # 0.4 10^3/uL (1.5-5.0); LYMPH % 2.8 % (24.0-44.0); MEAN CORPUSCULAR HEMOGLOBIN 30.7 pg (27.0-33.0); MEAN CORPUSCULAR HGB CONC 32.6 g/dl (32.0-36.5); MEAN CORPUSCULAR VOLUME 94.2 fl (80.0-96.0); MONO # 0.6 10^3/uL (0.0-0.8); NEUTROPHILS # 14.1 10^3/uL (1.5-8.5); NEUTROPHILS % 92.3 % (36.0-66.0); PLATELET COUNT, AUTOMATED 220 10^3/uL (150-450); RED BLOOD COUNT 2.93 10^6/uL (4.30-6.10); WHITE BLOOD COUNT 15.2 10^3/uL (4.0-10.0)
[2023-01-25] MEDS ORDERED: OLANZapine INTRAMUSCULAR 10MG VIAL IM ONE ×3 (05:00→16:10)
[2023-01-25 05:13] LABS: INR 1.32; PROTHROMBIN TIME 16.6 SECONDS (12.5-14.5)
[2023-01-25 05:39] LABS: PARTIAL THROMBOPLASTIN TIME 148.2 SECONDS (24.8-34.2)
[2023-01-25 06:26] LABS: BLOOD UREA NITROGEN 30 MG/DL (9-23); CALCIUM LEVEL 8.4 MG/DL (8.3-10.6); CARBON DIOXIDE LEVEL 21 MMOL/L (20-31); CHLORIDE LEVEL 106 MMOL/L (98-107); CK-MB VALUE MASS 3.3 NG/ML (<3.6); CPK CREATINE PHOSPHOKINASE 111 U/L (46-171); CREATININE FOR GFR 1.03 MG/DL (0.70-1.30); GLOMERULAR FILTRATION RATE > 60.0 (>42); GLUCOSE, FASTING 157 MG/DL (74-106); MAGNESIUM LEVEL 2.1 MG/DL (1.8-2.4); MB/CK RELATIVE INDEX 2.97 (< OR =4); POTASSIUM SERUM 4.2 MMOL/L (3.5-5.1); SODIUM LEVEL 138 MMOL/L (136-145)
[2023-01-25] MEDS: TIOTROPIUM INHALER/CAPSULE (SPIRIVA) INH SCH (07:45)
[2023-01-25] MEDS: BUDESONIDE 0.5 MG/2 ML INHALATION SUSPENSION INH SCH ×2 (07:45→20:06)
[2023-01-25] MEDS: MIDODRINE 5 MG TAB PO SCH ×3 (08:00→15:57)
[2023-01-25] MEDS: TORSEMIDE 10 MG TABLET PO SCH (09:00)
[2023-01-25] MEDS: ASPIRIN 81MG ENTERIC TABLET PO SCH (09:00)
[2023-01-25] MEDS: guaiFENesin ER 600 MG TAB PO SCH ×2 (09:00→20:46)
[2023-01-25] MEDS: CLOPIDOGREL 75 MG TAB PO SCH (09:00)
[2023-01-25 14:55] LABS: INR 1.26; PROTHROMBIN TIME 16.1 SECONDS (12.5-14.5)
[2023-01-25 14:57] LABS: PARTIAL THROMBOPLASTIN TIME 91.5 SECONDS (24.8-34.2)
[2023-01-25] MEDS ORDERED: FUROSEMIDE 20MG/2ML VIAL IV ONE (16:10)
[2023-01-25] MEDS ORDERED: diphenhydrAMINE 50MG/ML VIAL IM ONE (16:10)
[2023-01-25] MEDS: cefTRIAXone SOD 2 GM in D5W MINI-BAG PLUS 50 ML IV SCH (18:24)
[2023-01-25 20:28] LABS: INR 1.31; PROTHROMBIN TIME 16.5 SECONDS (12.5-14.5)
[2023-01-25 20:30] LABS: PARTIAL THROMBOPLASTIN TIME 104.1 SECONDS (24.8-34.2)
[2023-01-25] MEDS: ATORVASTATIN 20 MG TAB PO SCH (20:46)
[2023-01-25] MEDS: HEPARIN DRIP 25,000 UNITS in IV 1 EA IV SCH (20:52)
[2023-01-25] MEDS ORDERED: MORPHINE 2 MG/ML 1ML VIAL IV ONE (23:30)
[2023-01-26] VITALS (7 sets, daily range): BP systolic 90–130; BP diastolic 44–70; TEMP 96.7–98.2; O2SAT 94–100
[2023-01-26] MEDS: IPRATROPIUM 0.5MG/ALBUTEROL 2.5MG INH SOL UD 3ML (DUONEB) NEB SCH ×7 (03:27→23:48)
[2023-01-26] MEDS: methylPREDNISolone 125MG 2ML VIAL IV SCH ×3 (05:22→18:21)
[2023-01-26 06:26] LABS: EOS % 0.2 % (0.0-3.0); HEMATOCRIT 27.7 % (42.0-52.0); HEMOGLOBIN 8.8 g/dl (13.5-17.5); LYMPH # 0.3 10^3/uL (1.5-5.0); LYMPH % 5.2 % (24.0-44.0); MEAN CORPUSCULAR HEMOGLOBIN 30.7 pg (27.0-33.0); MEAN CORPUSCULAR HGB CONC 31.8 g/dl (32.0-36.5); MEAN CORPUSCULAR VOLUME 96.5 fl (80.0-96.0); MONO # 0.4 10^3/uL (0.0-0.8); MONO % 6.6 % (2.0-8.0); NEUTROPHILS # 5.7 10^3/uL (1.5-8.5); NEUTROPHILS % 87.4 % (36.0-66.0); PLATELET COUNT, AUTOMATED 205 10^3/uL (150-450); RED BLOOD COUNT 2.87 10^6/uL (4.30-6.10); WHITE BLOOD COUNT 6.5 10^3/uL (4.0-10.0)
[2023-01-26 07:29] LABS: BLOOD UREA NITROGEN 28 MG/DL (9-23); CALCIUM LEVEL 8.7 MG/DL (8.3-10.6); CARBON DIOXIDE LEVEL 25 MMOL/L (20-31); CHLORIDE LEVEL 108 MMOL/L (98-107); CREATININE FOR GFR 0.94 MG/DL (0.70-1.30); GLOMERULAR FILTRATION RATE > 60.0 (>42); GLUCOSE, FASTING 145 MG/DL (74-106); MAGNESIUM LEVEL 2.2 MG/DL (1.8-2.4); SODIUM LEVEL 142 MMOL/L (136-145)
[2023-01-26] MEDS: TIOTROPIUM INHALER/CAPSULE (SPIRIVA) INH SCH (08:00)
[2023-01-26] MEDS: MIDODRINE 5 MG TAB PO SCH ×3 (08:00→16:04)
[2023-01-26] MEDS: BUDESONIDE 0.5 MG/2 ML INHALATION SUSPENSION INH SCH ×2 (08:03→20:07)
[2023-01-26] MEDS: ASPIRIN 81MG ENTERIC TABLET PO SCH (09:00)
[2023-01-26] MEDS: CLOPIDOGREL 75 MG TAB PO SCH (09:00)
[2023-01-26] MEDS: guaiFENesin ER 600 MG TAB PO SCH ×3 (09:00→20:54)
[2023-01-26] MEDS ORDERED: NS 500 ML IV ONE ×2 (16:10→18:30)
[2023-01-26] MEDS: cefTRIAXone SOD 2 GM in D5W MINI-BAG PLUS 50 ML IV SCH (18:21)
[2023-01-26] MEDS: ATORVASTATIN 20 MG TAB PO SCH (20:51)
[2023-01-26] MEDS: HEPARIN DRIP 25,000 UNITS in IV 1 EA IV SCH (21:27)
[2023-01-27] MEDS: methylPREDNISolone 125MG 2ML VIAL IV SCH ×4 (00:34→17:05)
[2023-01-27] MEDS: IPRATROPIUM 0.5MG/ALBUTEROL 2.5MG INH SOL UD 3ML (DUONEB) NEB SCH ×6 (03:21→23:51)
[2023-01-27 04:26] VITALS: BP 125/59; TEMP 97.7; O2SAT 95
[2023-01-27 05:46] LABS: HEMATOCRIT 24.1 % (42.0-52.0); HEMOGLOBIN 7.7 g/dl (13.5-17.5); LYMPH # 0.4 10^3/uL (1.5-5.0); LYMPH % 8.1 % (24.0-44.0); MEAN CORPUSCULAR VOLUME 97.2 fl (80.0-96.0); MONO # 0.3 10^3/uL (0.0-0.8); MONO % 7.2 % (2.0-8.0); NEUTROPHILS # 3.9 10^3/uL (1.5-8.5); NEUTROPHILS % 83.6 % (36.0-66.0); PLATELET COUNT, AUTOMATED 203 10^3/uL (150-450); RED BLOOD COUNT 2.48 10^6/uL (4.30-6.10); WHITE BLOOD COUNT 4.7 10^3/uL (4.0-10.0)
[2023-01-27 06:11] LABS: BLOOD UREA NITROGEN 32 MG/DL (9-23); CALCIUM LEVEL 8.6 MG/DL (8.3-10.6); CARBON DIOXIDE LEVEL 25 MMOL/L (20-31); CHLORIDE LEVEL 109 MMOL/L (98-107); CREATININE FOR GFR 0.89 MG/DL (0.70-1.30); GLOMERULAR FILTRATION RATE > 60.0 (>42); GLUCOSE, FASTING 173 MG/DL (74-106); MAGNESIUM LEVEL 2.2 MG/DL (1.8-2.4); POTASSIUM SERUM 3.7 MMOL/L (3.5-5.1); SODIUM LEVEL 139 MMOL/L (136-145)
[2023-01-27] MEDS: BUDESONIDE 0.5 MG/2 ML INHALATION SUSPENSION INH SCH ×2 (07:44→19:51)
[2023-01-27] MEDS: TIOTROPIUM INHALER/CAPSULE (SPIRIVA) INH SCH (07:44)
[2023-01-27] MEDS: ASPIRIN 81MG ENTERIC TABLET PO SCH (08:36)
[2023-01-27] MEDS: MIDODRINE 5 MG TAB PO SCH ×3 (08:36→17:04)
[2023-01-27] MEDS: guaiFENesin ER 600 MG TAB PO SCH ×2 (08:36→21:30)
[2023-01-27 08:39] VITALS: BP 125/63; TEMP 97.2; O2SAT 99
[2023-01-27 09:24] LABS: HEMATOCRIT 26.7 % (42.0-52.0); HEMOGLOBIN 8.2 g/dl (13.5-17.5)
[2023-01-27] MEDS ORDERED: HEPARIN SOD (PORCINE) 5000UNITS/ML 1ML VIAL/SYRINGE IV PRN (10:45)
[2023-01-27 11:53] VITALS: BP 105/74; TEMP 97.1; O2SAT 92
[2023-01-27 12:01] LABS: HEMATOCRIT 27.3 % (42.0-52.0); HEMOGLOBIN 8.5 g/dl (13.5-17.5); MEAN CORPUSCULAR HEMOGLOBIN 30.5 pg (27.0-33.0); MEAN CORPUSCULAR HGB CONC 31.1 g/dl (32.0-36.5); MEAN CORPUSCULAR VOLUME 97.8 fl (80.0-96.0); PLATELET COUNT, AUTOMATED 205 10^3/uL (150-450); RED BLOOD COUNT 2.79 10^6/uL (4.30-6.10); WHITE BLOOD COUNT 4.8 10^3/uL (4.0-10.0)
[2023-01-27] MEDS: HEPARIN DRIP 25,000 UNITS in IV 1 EA IV SCH ×2 (12:32→22:04)
[2023-01-27 15:48] VITALS: BP 119/59; TEMP 96.7; O2SAT 96
[2023-01-27] MEDS: cefTRIAXone SOD 2 GM in D5W MINI-BAG PLUS 50 ML IV SCH (17:04)
[2023-01-27 17:44] LABS: HEMATOCRIT 26.2 % (42.0-52.0); HEMOGLOBIN 8.1 g/dl (13.5-17.5)
[2023-01-27 20:00] VITALS: BP 118/58; TEMP 97.9; O2SAT 94
[2023-01-27] MEDS: ATORVASTATIN 20 MG TAB PO SCH (21:29)
[2023-01-27 23:17] VITALS: BP 139/68; TEMP 97.3; O2SAT 95
[2023-01-28] MEDS: methylPREDNISolone 125MG 2ML VIAL IV SCH ×4 (01:09→18:29)
[2023-01-28] MEDS: IPRATROPIUM 0.5MG/ALBUTEROL 2.5MG INH SOL UD 3ML (DUONEB) NEB SCH ×5 (03:43→20:33)
[2023-01-28 04:04] VITALS: BP 125/57; TEMP 97.8; O2SAT 99
[2023-01-28 07:19] LABS: EOS % 0.2 % (0.0-3.0); HEMOGLOBIN 8.4 g/dl (13.5-17.5); LYMPH # 0.3 10^3/uL (1.5-5.0); LYMPH % 4.5 % (24.0-44.0); MEAN CORPUSCULAR HEMOGLOBIN 30.2 pg (27.0-33.0); MEAN CORPUSCULAR HGB CONC 31.1 g/dl (32.0-36.5); MEAN CORPUSCULAR VOLUME 97.1 fl (80.0-96.0); MONO # 0.3 10^3/uL (0.0-0.8); MONO % 4.8 % (2.0-8.0); NEUTROPHILS # 5.2 10^3/uL (1.5-8.5); NEUTROPHILS % 89.1 % (36.0-66.0); PLATELET COUNT, AUTOMATED 203 10^3/uL (150-450); RED BLOOD COUNT 2.78 10^6/uL (4.30-6.10); WHITE BLOOD COUNT 5.8 10^3/uL (4.0-10.0)
[2023-01-28 07:30] LABS: INR 1.16
[2023-01-28 07:56] LABS: PARTIAL THROMBOPLASTIN TIME 139.4 SECONDS (24.8-34.2)
[2023-01-28] MEDS: MIDODRINE 5 MG TAB PO SCH ×3 (08:00→16:00)
[2023-01-28 08:11] LABS: BLOOD UREA NITROGEN 25 MG/DL (9-23); CALCIUM LEVEL 8.6 MG/DL (8.3-10.6); CARBON DIOXIDE LEVEL 26 MMOL/L (20-31); CHLORIDE LEVEL 109 MMOL/L (98-107); CREATININE FOR GFR 0.76 MG/DL (0.70-1.30); GLOMERULAR FILTRATION RATE > 60.0 (>42); GLUCOSE, FASTING 190 MG/DL (74-106); POTASSIUM SERUM 3.5 MMOL/L (3.5-5.1); SODIUM LEVEL 142 MMOL/L (136-145)
[2023-01-28] MEDS: TIOTROPIUM INHALER/CAPSULE (SPIRIVA) INH SCH (08:27)
[2023-01-28] MEDS: BUDESONIDE 0.5 MG/2 ML INHALATION SUSPENSION INH SCH ×2 (08:27→20:33)
[2023-01-28 08:36] VITALS: BP 133/63; TEMP 97.3; O2SAT 98
[2023-01-28] MEDS: guaiFENesin ER 600 MG TAB PO SCH ×2 (09:46→21:13)
[2023-01-28 12:08] VITALS: BP 126/59; TEMP 97.5; O2SAT 98
[2023-01-28 12:17] VITALS: BP 123/61
[2023-01-28] MEDS ORDERED: BARIUM SULFATE 700 MG TABLET (E-Z-DISK) As Ordered ONE (12:51)
[2023-01-28] MEDS ORDERED: VARIBAR PUDDING 40% w/v 230ML TUBE As Ordered ONE (12:51)
[2023-01-28] MEDS ORDERED: VARIBAR NECTAR 40% w/v 240ML SUSP BTL As Ordered ONE (12:51)
[2023-01-28] MEDS ORDERED: E-Z-PAQUE 96% w/w SUSP 176GM BTL As Ordered ONE (12:51)
[2023-01-28 16:12] VITALS: BP 139/63; TEMP 97.8; O2SAT 97
[2023-01-28] MEDS: cefTRIAXone SOD 2 GM in D5W MINI-BAG PLUS 50 ML IV SCH (18:29)
[2023-01-28] MEDS: HEPARIN DRIP 25,000 UNITS in IV 1 EA IV SCH (19:28)
[2023-01-28 20:59] VITALS: BP 125/58; TEMP 96.9; O2SAT 100
[2023-01-28] MEDS ORDERED: TAMSULOSIN 0.4 MG CAP PO SCH (21:00)
[2023-01-28] MEDS: ATORVASTATIN 20 MG TAB PO SCH (21:13)
[2023-01-29] MEDS: methylPREDNISolone 125MG 2ML VIAL IV SCH ×2 (00:24→05:38)
[2023-01-29] MEDS: IPRATROPIUM 0.5MG/ALBUTEROL 2.5MG INH SOL UD 3ML (DUONEB) NEB SCH ×6 (00:32→20:42)
[2023-01-29 01:16] LABS: INR 1.09; PROTHROMBIN TIME 14.3 SECONDS (12.5-14.5)
[2023-01-29 01:18] LABS: PARTIAL THROMBOPLASTIN TIME 93.5 SECONDS (24.8-34.2)
[2023-01-29 04:00] VITALS: BP 141/65; TEMP 97.3; O2SAT 97
[2023-01-29] MEDS ORDERED: MOM 30ML SUSPENSION UDC PO ONE (05:00)
[2023-01-29 07:12] LABS: BASO % 0.2 % (0.0-1.0); HEMATOCRIT 26.4 % (42.0-52.0); HEMOGLOBIN 8.4 g/dl (13.5-17.5); LYMPH # 0.3 10^3/uL (1.5-5.0); LYMPH % 5.8 % (24.0-44.0); MEAN CORPUSCULAR HEMOGLOBIN 30.4 pg (27.0-33.0); MEAN CORPUSCULAR HGB CONC 31.8 g/dl (32.0-36.5); MEAN CORPUSCULAR VOLUME 95.7 fl (80.0-96.0); MONO # 0.3 10^3/uL (0.0-0.8); MONO % 5.6 % (2.0-8.0); NEUTROPHILS # 4.3 10^3/uL (1.5-8.5); PLATELET COUNT, AUTOMATED 208 10^3/uL (150-450); RED BLOOD COUNT 2.76 10^6/uL (4.30-6.10)
[2023-01-29 07:14] LABS: INR 1.14; PROTHROMBIN TIME 14.8 SECONDS (12.5-14.5)
[2023-01-29 07:16] LABS: PARTIAL THROMBOPLASTIN TIME 104.4 SECONDS (24.8-34.2)
[2023-01-29 07:42] LABS: BLOOD UREA NITROGEN 28 MG/DL (9-23); CALCIUM LEVEL 8.5 MG/DL (8.3-10.6); CARBON DIOXIDE LEVEL 24 MMOL/L (20-31); CHLORIDE LEVEL 107 MMOL/L (98-107); CREATININE FOR GFR 0.68 MG/DL (0.70-1.30); GLOMERULAR FILTRATION RATE > 60.0 (>42); GLUCOSE, FASTING 168 MG/DL (74-106); MAGNESIUM LEVEL 2.1 MG/DL (1.8-2.4); POTASSIUM SERUM 3.8 MMOL/L (3.5-5.1); SODIUM LEVEL 140 MMOL/L (136-145)
[2023-01-29 08:55] VITALS: BP 129/58; TEMP 97.9; O2SAT 96
[2023-01-29] MEDS: guaiFENesin ER 600 MG TAB PO SCH ×2 (08:57→21:00)
[2023-01-29] MEDS: MIDODRINE 5 MG TAB PO SCH ×2 (08:58→11:59)
[2023-01-29] MEDS: TIOTROPIUM INHALER/CAPSULE (SPIRIVA) INH SCH (09:29)
[2023-01-29] MEDS: BUDESONIDE 0.5 MG/2 ML INHALATION SUSPENSION INH SCH ×2 (09:29→20:42)
[2023-01-29 10:42] VITALS: O2SAT 94
[2023-01-29 10:49] VITALS: O2SAT 95
[2023-01-29] MEDS ORDERED: ONDANSETRON 4MG ORAL DISINTEGRATING TAB PO PRN (11:20)
[2023-01-29] MEDS ORDERED: BISACODYL 10MG SUPP PR PRN (11:20)
[2023-01-29 11:53] VITALS: O2SAT 95
[2023-01-29] MEDS ORDERED: predniSONE 20 MG TAB PO SCH (12:00)
[2023-01-29] MEDS ORDERED: ENOXAPARIN 60MG/0.6ML SYRINGE (J1650 PER 10MG) SC SCH (16:20)
[2023-01-29] MEDS ORDERED: OLANZapine INTRAMUSCULAR 10MG VIAL IM PRN (18:05)
[2023-01-29] MEDS: LORazepam 2 MG/ML 1ML VIAL IV PRN ×2 (18:06→22:48)
[2023-01-29] MEDS ORDERED: OLANZapine INTRAMUSCULAR 10MG VIAL IM SCH (21:00)
[2023-01-30] MEDS: IPRATROPIUM 0.5MG/ALBUTEROL 2.5MG INH SOL UD 3ML (DUONEB) NEB SCH ×6 (00:04→19:35)
[2023-01-30] MEDS: BUDESONIDE 0.5 MG/2 ML INHALATION SUSPENSION INH SCH ×2 (08:00→19:35)
[2023-01-30] MEDS: guaiFENesin ER 600 MG TAB PO SCH ×2 (09:00→21:04)
[2023-01-30] MEDS: TIOTROPIUM INHALER/CAPSULE (SPIRIVA) INH SCH (09:24)
[2023-01-31] MEDS: IPRATROPIUM 0.5MG/ALBUTEROL 2.5MG INH SOL UD 3ML (DUONEB) NEB SCH ×5 (00:29→15:10)
[2023-01-31] MEDS: LORazepam 2 MG/ML 1ML VIAL IV PRN (03:46)
[2023-01-31] MEDS: BUDESONIDE 0.5 MG/2 ML INHALATION SUSPENSION INH SCH (08:08)
[2023-01-31] MEDS: TIOTROPIUM INHALER/CAPSULE (SPIRIVA) INH SCH (08:08)
[2023-01-31] MEDS: guaiFENesin ER 600 MG TAB PO SCH (09:35)
[2023-01-31] MEDS: oxyCODONE 5MG TAB PO PRN ×2 (09:35→14:51)
[2023-02-07 11:09] LABS: ANTI THROMBIN 3 ANTIGEN IMMUNO 92 % (72-124); ANTI THROMBIN 3 FUNCT ACTIVITY 106 % (75-135); CARDIOLIPIN IGA ANTIBODY <9 APL U/mL (0-11); CARDIOLIPIN IGG ANTIBODY <9 GPL U/mL (0-14); CARDIOLIPIN IGM ANTIBODY <9 MPL U/mL (0-12)
== END 2023-01-31 16:52 | DRG 480 ==
LOC: EDBD 13:01 → M ED 13:01 → EEVIPCON 17:22 → M ED INP 17:22 → M MS5PR 21:47 → M PCU 01-24 09:47
PROVIDERS: ADMIT General Practice; ATTEND Internal Medicine
PROC: 0QS606Z Reposition Right Upper Femur with Intramedullary Internal Fixation Device, Open Approach (ICD-10-PCS; principal; 2023-01-23 13:30)
PROC: B246ZZZ Ultrasonography of Right and Left Heart (ICD-10-PCS; 2023-01-24)
DX: S72.342A Displaced spiral fracture of shaft of left femur, initial encounter for closed fracture (principal); J96.21 Acute and chronic respiratory failure with hypoxia; I26.99 Other pulmonary embolism without acute cor pulmonale; J15.6 Pneumonia due to other Gram-negative bacteria; G93.41 Metabolic encephalopathy; I21.A1 Myocardial infarction type 2; J44.0 Chronic obstructive pulmonary disease with (acute) lower respiratory infection; J44.1 Chronic obstructive pulmonary disease with (acute) exacerbation; C34.11 Malignant neoplasm of upper lobe, right bronchus or lung; I25.10 Atherosclerotic heart disease of native coronary artery without angina pectoris; Z51.5 Encounter for palliative care; Z66 Do not resuscitate; N18.30 Chronic kidney disease, stage 3 unspecified; I12.9 Hypertensive chronic kidney disease with stage 1 through stage 4 chronic kidney disease, or unspecified chronic kidney disease; E78.5 Hyperlipidemia, unspecified; I73.9 Peripheral vascular disease, unspecified; G62.9 Polyneuropathy, unspecified; F32.A Depression, unspecified; W05.0XXA Fall from non-moving wheelchair, initial encounter; Y92.129 Unspecified place in nursing home as the place of occurrence of the external cause; Y93.89 Activity, other specified; Y99.8 Other external cause status; I95.2 Hypotension due to drugs; I71.20 Thoracic aortic aneurysm, without rupture, unspecified; R33.9 Retention of urine, unspecified; D64.9 Anemia, unspecified; Z79.899 Other long term (current) drug therapy; Z87.891 Personal history of nicotine dependence; Z79.02 Long term (current) use of antithrombotics/antiplatelets; Z79.82 Long term (current) use of aspirin